=== PATIENT | female | born 1965 | race Caucasian/White ===

== ENCOUNTER 2019-02-12 07:02 | Inpatient (IN) ==
--- NOTE | 2019-02-12 11:00 | Internal Med History&Physical ---
Date of Encounter: 02/12/19 Time of Encounter: 10:35 Internal Medicine - H&P: HPI Chief complaint: Chest pain, transferred from [place] Admitted From: Intrahospital Transfer Plans for Post Hospital Care: Home History of present illness: Ms. Weiner is a 53 year old female with past medical history of diabetes, hypertension, peripheral artery disease with vascular surgeon in both her lower extremity who currently smokes was transferred from [facility] for further management for chest pain. She has on and off chest pain for last 2 weeks mostly at rest. She was evaluated a week ago at [facility] and was discharged to follow up outpatient for a stress test which she has not had yet. She denied any lightheadedness, palpitation, dizziness, nausea or vomiting. She has mild sweating but thought she was having hot flashes. She is on Effient because of some reaction to Plavix in the past prescribed by vascular surgery. However over the last month she has not been taking it. Her pain was 7/10 in intensity radiating to left shoulder and neck. Pain was slightly worse when lying down. Pain lasted the whole night yesterday which made her go to the ER. Patient was evaluated at [facility] and was found to have troponin of 0.22 without any significant EKG changes. Was given dose of aspirin 324 and started on heparin drip. Patient was transferred here for further management. Patient was seen at bedside. Currently without any chest pain nausea vomiting sweating or lightheadedness or dizziness. Wants to eat. Denies any other complaints. Reported that about 3 weeks ago she was treated for bronchitis and still has some cough associated with it however she also usually has some cough. Denies any fever or chills. Denies any diarrhea. Patient reported significant family history of cardiac disease with sister having heart attack in her 50s. Patient's EKG from [place] was reviewed and showed slight ST depression lateral leads. Laboratory data otherwise significant only for mildly elevated platelets which appears to be chronic and elevated blood glucose. Chest x-ray was without any acute findings. Patient says she is compliant with her medication but she continues to smoke. Patient on heparin drip. She reported penicillin allergy where he had projectile vomiting and was very sick when she was in her 20s. Did not remember exact allergy to Plavix. Past Med Surg Social Fam HX - Past Medical History Medical history: diabetes, hypertension, peripheral artery disease, venous stasis Psychiatric history: anxiety, panic disorder - Past Surgical History Surgical History: appendectomy, LE stent (s) Additional surgical history: appendectomy, ANGIOPLASTY WITH STENT LEFT 2011,RIGHT ANGIOPLASTY 2013, 2016, leasions removed from uterus - Social History Smoking Status: Current every day smoker Smokeless Tobacco Status: No Alcohol use: none Drug use: none - Additional Family History Additional family history: Sister had heart attack in her 50s, sister's daughter had heart attack in her 30s Internal Medicine - H&P: Meds Acetaminophen [Tylenol] 1,000 mg PO Q6HR PRN #90 tablet 01/14/17 [Rx] Albuterol Sulfate [Proventil Inhaler] 2 puff IH Q4HR PRN 01/14/17 [History] Amlodipine Besylate 10 mg PO DAILY 01/14/17 [History] Aspirin [Lo-Dose Aspirin EC] 81 mg PO DAILY 01/14/17 [History] Gabapentin [Neurontin] 600 mg PO TID 01/14/17 [History] Insulin ASPART [NovoLOG] 30 unit SQ BID 01/14/17 [History] Losartan Potassium [Cozaar] 50 mg PO DAILY 01/14/17 [History] Metoprolol [Lopressor] 50 mg PO DAILY 01/14/17 [History] Montelukast Sodium [Singulair] 10 mg PO DAILY 01/14/17 [History] Prasugrel [Effient] 10 mg PO DAILY 01/14/17 [History] metFORMIN [Glucophage] 1,000 mg PO BIDWM 01/14/17 [History] Loratadine/Pseudophed (12 HR) [Claritin D (12HR)] 1 each PO BID #20 tab.er.12h 01/27/17 [Rx] Albuterol Sulfate [Proventil Inhaler] 2 puff IH Q4H PRN 03/04/17 [History] Ciprofloxacin [Cipro] 500 mg PO BID #14 tablet 06/07/17 [Rx] Phenazopyridine HCl [Pyridium] 200 mg PO TIDAC #6 tab 06/07/17 [Rx] Allergy/AdvReac Type Severity Reaction Status Date / Time Penicillins [PCN] Allergy Intermediate Vomiting Verified 06/07/17 10:24 clopidogrel [From Plavix] AdvReac See Verified 06/07/17 10:24 Comments lisinopril AdvReac Cough Verified 06/07/17 10:24 quinapril [From Accupril] AdvReac Cough Verified 06/07/17 10:24 All Systems PM: A 10-system review of systems was performed and is negative for pertinent findings except as documented above in the HPI. - Constitutional Exam: Constitutional: Vitals as noted. Conversant. No Apparent Distress. Well groomed. obese Eyes : Sclera white, conjunctiva clear, no lid lag, PEARLA. ENT : Grossly normal hearing. Moist mucus membranes. No JVD, no cervical lymphadenopathy. no thyromegaly or mass. Respiratory : Clear to auscultation bilaterally. No accessory muscle use, rales, rhonchi or wheezes Cardiovascular : RRR, +S1, +S2. no murmur, gallop, rubs. No chest wall tenderness GI/Abdominal : Soft, Non-tender, Non-distended, normal bowel sounds, no peritoneal signs. no orgenomegaly or mass appreciated. no hernia. Musculoskeletal: no deformity noted. no edema , warm extremities, pulses palpable and symmetrical in UE/LE. no calf tenderness. Neurological: AO X3, CN II-XII grossly intact, grossly normal motor and sensory exam. Skin: No skin rash, lesions or ulcers noted. Pych: anxious. AOx3. Internal Med - H&P Results - EKG Data -: EKG Interpreted by Myself EKG shows normal: sinus rhythm (mild ST depression in lateral leads) - Assessment and Plan (1) NSTEMI (non-ST elevated myocardial infarction) Current Visit: No Status: Acute Assessment and plan: Patient currently without chest pain. EKG with slight ST depression in lateral leads. 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 We will trend troponin. continue patient on heparin drip for now. Cardiology consulted we will see the patient. Will continue patient's aspirin and metoprolol metoprolol. Appears patient not on any statin. We will start high intensity statin. We will confirm her home medications. We will obtain echocardiogram. (2) Diabetes Current Visit: Yes Status: Acute Assessment and plan: We will obtain A1c Keep patient on diabetic diet and Accu-Cheks with sliding scale for now. I will hold home metformin. Qualifiers: Diabetes mellitus type: type 2 Diabetes mellitus mcc insulin use: with mcc use Diabetes mellitus complication status: with circulatory complication Diabetes mellitus complication detail: with peripheral angiopathy without gangrene Qualified Code(s): E11.51 - Type 2 diabetes mellitus with diabetic peripheral angiopathy without gangrene; Z79.4 - snf (current) use of insulin (3) HTN (hypertension) Current Visit: Yes Status: Acute Assessment and plan: Blood pressure slightly on the higher and in 150s/80s Resume home losartan. Unclear dose of amlodipine. We will resume once confirmed. Qualifiers: Hypertension type: essential hypertension Qualified Code(s): I10 - Essential (primary) hypertension (4) Peripheral arterial disease Current Visit: Yes Status: Acute Assessment and plan: Known history of peripheral artery disease with surgeries and bilateral lower extremity. Patient continues to smoke. She was prescribed Effient by likely due to her PAD with her Plavix allergy and chronic thrombocytosis. We will continue after cardiology evaluation. She has not been taking it for the last month. (5) Anxiety Current Visit: Yes Status: Acute Assessment and plan: She does not take any medication for anxiety however currently feels somewhat anxious. We will monitor for now and consider as needed Ativan. (6) Tobacco abuse Current Visit: Yes Status: Acute Assessment and plan: Patient continues to about half to 1 pack a day. Discussed the risk of continuing smoking along with her other risk factors We will consider nicotine patch if patient develops craving. (7) Thrombocytosis Current Visit: Yes Status: Acute Assessment and plan: Appears to be chronic in nature. Minimally elevated above upper limit No significant family history of blood disorder Will need outpatient hematology follow-up. - Time Spent With Patient Total time spent is greater than 50% in coordination of care (as documented) at patient's floor/unit and/or counseling patient:
[2019-02-12] MEDS ORDERED: *HR* Heparin 5,000 UNIT/ML VIAL IVP PRN (12:22)
[2019-02-12] MEDS: Heparin 25,000 UNIT/250 ML D5W 25,000 UNIT/250 ML IV.SOLN IVC SCH (13:15)
[2019-02-12] MEDS ORDERED: D5% in Water 1,000 ML IVC PRN (14:14)
[2019-02-12] MEDS ORDERED: *HR* Dextrose 50 % in Water (Syg) 50 ML SYRINGE IVP PRN (14:14)
[2019-02-12] MEDS ORDERED: Dextrose Gel 15 GM/37.5 ML TUBE PO PRN ×2 (14:14)
[2019-02-12] MEDS: *HR* LORazepam 0.5 MG TABLET PO PRN ×2 (14:28→21:00)
[2019-02-12] MEDS: Insulin LISPRO 300 UNITS/3 ML VIAL SQ SCH ×2 (16:38→21:07)
[2019-02-12] MEDS: *HR* Heparin 5,000 UNIT/ML VIAL IVP PRN (21:00)
[2019-02-13 03:37] LABS: Basophils # 0.1 K/mcL (0.0-0.2); Eosinophils # 0.5 K/mcL (0.0-0.6); Eosinophils % 6.1 %; Hematocrit 39.2 % (35.3-44.9); Hemoglobin 12.5 g/dL (11.5-15.4); Immature Granulocytes % 0.2 % (0-4); Lymphocytes # 2.9 K/mcL (0.6-4.6); Lymphocytes % 34.3 %; Mean Corpuscular HGB Conc 31.9 g/dL (31.6-35.5); Mean Corpuscular Hemoglobin 29.8 pg (28.0-33.3); Mean Corpuscular Volume 93.3 fL (83.0-100.0); Mean Platelet Volume 9.7 fL (9.4-12.4); Monocytes # 0.6 K/mcL (0.0-1.3); Monocytes % 7.2 %; Neutrophils # 4.3 K/mcL (1.6-8.9); Platelet Count 395 K/mcL (140-400); Segmented Neutrophils % 51.2 %; White Blood Count 8.3 K/mcL (4.3-11.1)
[2019-02-13] MEDS: *HR* Heparin 5,000 UNIT/ML VIAL IVP PRN ×2 (04:07→11:44)
[2019-02-13] MEDS: Heparin 25,000 UNIT/250 ML D5W 25,000 UNIT/250 ML IV.SOLN IVC SCH ×2 (06:18→20:13)
[2019-02-13] MEDS: Insulin LISPRO 300 UNITS/3 ML VIAL SQ SCH ×7 (07:32→22:10)
[2019-02-13] MEDS: Aspirin Enteric Coated 81 MG Tablet PO SCH (07:36)
--- NOTE | 2019-02-13 09:39 | Cardiology Consult Note ---
Date of Encounter: 02/13/19 Time of Encounter: 09:25 Assessment and Plan (1) NSTEMI (non-ST elevated myocardial infarction) Current Visit: Yes Status: Acute Pt's symptoms consistent with unstable angina. EKG with no acute changes. Troponins elevated consistent with nonSTEMI. Will proceed with cardiac catheterization tomorrow AM to evaluate for obstructive CAD. Will likely need to use Brilinta if needs stent due to possible clopidogrel allergy. Emphasized strongly the need for compliance with DAPT if receives stent. Pt verbalizes understanding. Continue heparin gtt, beta blockade, add statin. (2) HTN (hypertension) Current Visit: No Status: Chronic Controlled. Continue current meds. Qualifiers: Hypertension type: essential hypertension Qualified Code(s): I10 - Essential (primary) hypertension (3) Peripheral arterial disease Current Visit: No Status: Chronic Will need outpatient f/u with PVS. (4) Tobacco abuse Current Visit: Yes Status: Chronic Smoking cessation. Discussion w patient/family: The assessment and plan as outlined above was discussed with the patient and/or family members who expressed understanding and agreement. All questions were answered. Thank you for involving us in the care of your patient. Please call with any questions. History of Present Illness Consult date: 02/13/19 Requesting physician: Perez De Santiago Consult reason: CP Chief complaint: CP History of present illness: Ms. Weiner is a 53 year old female with PVD, tobacco use, HTN, DM, hyperlipidemia presents to [facility] as transfer from [facility] for evaluation of CP. For past 2 weeks, pt has had intermittent CP that radiates to L shoulder/neck. Associated with SOB. Occurs at rest and with exertion. Notices most in evening when lying down. Symptoms have lasted for several hours and then eventually resolve. Was seen at urgent care a week ago for similar symptoms. Told to f/u with PCP who ordered stress test. Stress test has not been completed. Thursday evening, had onset of CP that lasted all night and into Sat AM. States CP was more severe and lasted longer than prior episodes therefore presented to [place] ED for further evaluation and tx. On arrival to [place], troponin was 0.22. EKG demonstrated NSR with possible prior anteroseptal WI. Pt started on heparin gtt and transferred here for further evaluation/tx. Pt denies past cardiac history. Does have known history of PVD and has had percutaneous revascularization of b/l LE by Dr. Tatum in past. Has had R SFA FACULTY I ON CALL MEDICAL ASSISTANT/stenting, known L SFA occlusion. Per pt, was told needed surgical revascularization of LLE but did not f/u. States can walk around [employer] without difficulty. Cannot walk up incline without claudication. Unsure how far can walk before having to stop due to claudication but thinks about 50 yards. Pt also has unspecified allergy to Plavix- "I can't take that." Had been on Effient but hasn't taken for past month since thinks daughter threw out her medication bottles. Currently pt is CP free, sitting up in bed. Serial troponins 0.22, 0.73, 0.78, 0.59. Past Med Surg Social Fam HX - Past Medical History Medical history: diabetes, hyperlipidemia, hypertension, peripheral artery disease, venous stasis Additional medical history: Hardening of the arteries Psychiatric history: anxiety, panic disorder - Past Surgical History Surgical History: appendectomy, LE stent (s) Additional surgical history: appendectomy, ANGIOPLASTY WITH STENT LEFT 2011,RIGHT ANGIOPLASTY 2013, 2016, leasions removed from uterus - Social History Smoking Status: Current every day smoker Packs per day: 1/4 a day Smokeless Tobacco Status: No Alcohol use: none Drug use: none - Family History Sister Hx Family Cardiac Disorders: Yes Hx Family Cancer: Yes Mother Hx Family Cardiac Disorders: Yes Medications and Allergies Albuterol Sulfate [Proventil Inhaler] 2 puff IH Q4HR PRN 01/14/17 [History] Amlodipine Besylate 10 mg PO DAILY 01/14/17 [History] Aspirin [Lo-Dose Aspirin EC] 81 mg PO DAILY 01/14/17 [History] Gabapentin [Neurontin] 600 mg PO TID 01/14/17 [History] Insulin ASPART [NovoLOG] 30 unit SQ TID 01/14/17 [History] Losartan Potassium [Cozaar] 50 mg PO DAILY 01/14/17 [History] Metoprolol [Lopressor] 50 mg PO BID 01/14/17 [History] Prasugrel [Effient] 10 mg PO DAILY 01/14/17 [History] Albuterol Neb [AccuNeb] 1.25 mg IH Q4-6H PRN 02/12/19 [History] Insulin LISPRO [Humalog Kwikpen U-100] 30 units SQ TID 02/12/19 [History] Metformin HCl 1,000 mg PO BID 02/12/19 [History] Allergy/AdvReac Type Severity Reaction Status Date / Time Penicillins [PCN] AdvReac Intermediate Vomiting Verified 02/12/19 16:06 clopidogrel [From Plavix] AdvReac See Verified 02/12/19 16:06 Comments lisinopril AdvReac Cough Verified 02/12/19 16:06 quinapril [From Accupril] AdvReac Cough Verified 02/12/19 16:06 All Systems Review: The remainder of the systems were reviewed and are negative - Cardiovascular Cardiovascular: as per HPI Physical Examination Vital Signs, Last 4 Hours Temp Pulse Resp BP Pulse Ox 02/13/19 07:04 97.9 F 90 16 133/78 90 General: Conversant, No Apparent Distress HEENT: Atraumatic, Normocephaly, Mucus Membranes Moist Neck: No JVD, Normal carotid pulses Cardiac: Reg Rate and Rhythm, Normal S1 and S2, No Murmur Lungs: Normal Breath Sounds, No Wheeze, Rales, Rhonchi Neuro: Alert and responsive, No focal deficits noted Abdomen: Soft, Non-Tender Skin: No rashes noted on visualized skin Musculoskeletal: No Chest Wall Tenderness Extremities: No Clubbing, No Cyanosis, No Edema Results 02/13/19 03:20 Lab Results 02/12/19 02/12/19 02/12/19 11:19 16:48 22:43 WBC Hgb Hct Plt Count Troponin I 0.73 H* 0.78 H* 0.59 H* 02/13/19 03:20 WBC 8.3 Hgb 12.5 Hct 39.2 Plt Count 395 Troponin I - EKG Interpretation EKG results cardiology: personally reviewed (EKG- NSR, prior anterosepal WI) Consult Discharge Plan - Plan Referrals: Neema Oropeza, FEI [Primary Care Provider] -
[2019-02-13] MEDS: Gabapentin 300 MG CAPSULE PO SCH ×3 (11:41→22:08)
[2019-02-13] MEDS: amLODIPine 5 MG TABLET PO SCH (11:44)
[2019-02-13] MEDS: Insulin DETEMIR 100 UNIT/ML X5UNITS SQ SCH ×2 (11:45→22:09)
[2019-02-13] MEDS: *HR* LORazepam 0.5 MG TABLET PO PRN ×2 (11:54→22:06)
--- NOTE | 2019-02-13 12:10 | Internal Med Progress Note ---
Hospitalist Progress Note - Encounter Date of Encounter: 02/13/19 Time of Encounter: 09:45 - Subjective Interval History: Patient was seen at bedside. Denied any chest pain, shortness of breath right now. Denies fever, chills, rigors. Denies blood in stools, hematuria. No other overnight events. - Exam Vitals: Temp Pulse Resp BP Pulse Ox 98.5 F 80 16 148/87 95 02/13/19 11:34 02/13/19 11:34 02/13/19 11:34 02/13/19 11:34 02/13/19 11:34 Exam: General: Alert and oriented, no physical distress, able to follow commands. HEENT: No thyromegaly, no lymphadenopathy, no discharge. Eyes: No discharge. Normal conjuctiva, no icterus Respiratory: Normal vesicular breathing, no added sounds, breathing equal in both sides. CVS: Normal heart sounds, no murmurs, regular rhthm, no edema Extremities: No peripheral edema, peripheral pulses intact. Lymph nodes: No lymphadenopathy Gastrointestinal: Soft, nontender abdomen, normal abdominal sounds. No distention noted. Genitourinary: No paravertebral tenderness. Skin: No rash, ulcers or wound. Neurological: Alert and oriented. No focal deficits. Cranial nerves II-XII intact. - Assessment and Plan (1) NSTEMI (non-ST elevated myocardial infarction) Current Visit: Yes Status: Acute Assessment and Plan: Likely unstable angina. Currently chest pain-free. EKG showed ST segment depression in the lateral leads. Troponins peaked at 0.78. Echocardiogram with normal ejection fraction without any wall motion abnormalities. Cardiology on board. Plan for cardiac catheterization tomorrow. Continuous aspirin, metoprolol. Continue heparin drip. Continue statins. (2) Diabetes Current Visit: Yes Status: Acute Assessment and Plan: Blood glucose levels slightly elevated. Continued insulin detemir 10 units twice a day, insulin lispro 5 units 3 times a day with meals. Continue low-dose sliding scale. (3) HTN (hypertension) Current Visit: No Status: Chronic Assessment and Plan: Blood pressure within reasonable range. Continue home medications. (4) Peripheral arterial disease Current Visit: No Status: Chronic Assessment and Plan: Known history of peripheral artery disease with surgeries and bilateral lower extremity. Patient continues to smoke. She was prescribed Effient by Dr.Manazer likely due to her PAD with her Plavix allergy and chronic thrombocytosis. She has not been taking it for the last 1 month. Further plan after the heart cath (5) Anxiety Current Visit: Yes Status: Acute Assessment and Plan: She does not take any medication for anxiety however currently feels somewhat anxious. We will monitor for now and consider as needed Ativan. (6) Tobacco abuse Current Visit: Yes Status: Chronic Assessment and Plan: Patient continues to about half to 1 pack a day. Discussed the risk of continuing smoking along with her other risk factors (7) Thrombocytosis Current Visit: Yes Status: Acute Assessment and Plan: Chronic No significant family history of blood disorder Will need outpatient hematology follow-up. - Time Spent with Patient Total time spent is greater than 50% in coordination of care (as documented) at patient's floor/unit and/or counseling patient: Internal Medicine: Result - Labs CBC & Chem 7: 02/13/19 03:20 Labs: Short CBC 02/13/19 Range/Units 03:20 WBC 8.3 (4.3-11.1) K/mcL Hgb 12.5 (11.5-15.4) g/dL Hct 39.2 (35.3-44.9) % Plt Count 395 (140-400) K/mcL Neutrophils # 4.3 (1.6-8.9) K/mcL Cardiac Enzymes 02/12/19 02/12/19 Range/Units 16:48 22:43 Troponin I 0.78 H* 0.59 H* (< 0.04) ng/mL - Impressions Impressions Echocardiogram 02/12/19 14:45 Impressions: Technically sub-optimal due to poor echocardiographic windows. LVEF 55-60%. Not all LV segments were well visualized, but overall LVEF is normal. Normal LV chamber size. Moderate concentric left ventricular hypertrophy. Mild left ventricular diastolic dysfunction. Normal right ventricular structure and function. No significant valvular dysfunction. Unable to estimate RVSP due to lack of TR jet. Findings: Study Quality * Technically sub-optimal due to poor echocardiographic windows. ECG Findings * Normal sinus rhythm. Left Ventricle * LVEF 55-60%. Not all LV segments were well visualized, but overall LVEF is normal. * Normal LV chamber size. * Moderate concentric left ventricular hypertrophy. * Mild left ventricular diastolic dysfunction. Right Ventricle * Normal right ventricular structure and function. Left Atrium * Normal left atrial size. Right Atrium * Normal right atrial size. Interatrial Septum * Interatrial septum not well evaluated. Aortic Valve * Aortic valve not well visualized. * Grossly, mildly calcified aortic valve leaflets. * No aortic stenosis. * No aortic regurgitation. Mitral Valve * Mildly thickened mitral valve leaflets. * No mitral regurgitation. * No mitral stenosis. Tricuspid Valve * Normal tricuspid valve structure and function. * No tricuspid regurgitation. * Unable to estimate RVSP due to lack of TR jet. Pulmonic Valve * Pulmonic valve is not well visualized. * No pulmonic regurgitation. Aorta * Normally sized aortic root. Pericardium * There is a trivial pericardial effusion present. IVC * Normal IVC dimensions and inspiratory collapse. Pulmonary Artery * Normal visualized portions of the main pulmonary artery. 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
[2019-02-14] MEDS: *HR* Heparin 5,000 UNIT/ML VIAL IVP PRN ×3 (00:54→21:48)
[2019-02-14 06:53] LABS: Hematocrit 41.1 % (35.3-44.9); Hemoglobin 13.3 g/dL (11.5-15.4); Immature Granulocytes % 0.3 % (0-4); Lymphocytes % 38.3 %; Mean Corpuscular HGB Conc 32.4 g/dL (31.6-35.5); Mean Corpuscular Hemoglobin 30.2 pg (28.0-33.3); Mean Corpuscular Volume 93.4 fL (83.0-100.0); Mean Platelet Volume 9.8 fL (9.4-12.4); Platelet Count 385 K/mcL (140-400); Segmented Neutrophils % 46.4 %; White Blood Count 7.7 K/mcL (4.3-11.1)
[2019-02-14 06:54] LABS: Basophils # 0.1 K/mcL (0.0-0.2); Basophils % 0.9 %; Eosinophils # 0.5 K/mcL (0.0-0.6); Eosinophils % 5.8 %; Monocytes # 0.6 K/mcL (0.0-1.3); Monocytes % 8.3 %; Neutrophils # 3.6 K/mcL (1.6-8.9)
[2019-02-14 07:09] LABS: BUN/Creatinine Ratio 20 (6-26); Blood Urea Nitrogen 16 mg/dL (6-20); Calcium 9.5 mg/dL (8.6-10.3); Carbon Dioxide 25 mEq/L (23-29); Chloride 101 mEq/L (98-107); Chol/HDL Ratio 6.6 (0-4.9); Cholesterol 185 mg/dL (< 200); Glucose 264 mg/dL (70-105); HDL Cholesterol 28 mg/dL (40-59); Osmolality,Calculated 290 (280-300); Potassium 4.2 mEq/L (3.5-5.1); Sodium 135 mEq/L (136-145); Triglycerides 549 mg/dL (< 150); eGFR For African Americans > 60 (> 60); eGFR For Non-African Americans > 60 (> 60)
[2019-02-14 07:22] LABS: LDL Cholesterol,Direct 84 mg/dL (75-193)
[2019-02-14] MEDS: Insulin LISPRO 300 UNITS/3 ML VIAL SQ SCH ×7 (07:32→21:23)
[2019-02-14] MEDS: Aspirin Enteric Coated 81 MG Tablet PO SCH (08:30)
[2019-02-14] MEDS: Gabapentin 300 MG CAPSULE PO SCH ×3 (08:31→21:49)
[2019-02-14] MEDS: amLODIPine 5 MG TABLET PO SCH (08:31)
[2019-02-14] MEDS: *HR* LORazepam 0.5 MG TABLET PO PRN ×3 (08:32→21:55)
[2019-02-14] MEDS: Insulin DETEMIR 100 UNIT/ML X5UNITS SQ SCH ×2 (08:32→21:24)
[2019-02-14] MEDS: Heparin 25,000 UNIT/250 ML D5W 25,000 UNIT/250 ML IV.SOLN IVC SCH (12:44)
[2019-02-14] MEDS ORDERED: Verapamil 5 MG/2 ML VIAL ONE (13:13)
[2019-02-14] MEDS ORDERED: Heparin 1,000 UNITS/500 mL 500 ML ONE (13:14)
[2019-02-14] MEDS ORDERED: *HR* Heparin 10,000 UNIT/10 ML VIAL ONE (13:14)
[2019-02-14] MEDS ORDERED: Nitroglycerin 1,000 MCG/10 ML VIAL IV ONE (13:14)
[2019-02-14] MEDS ORDERED: Iopamidol 125 ML INFUS..BTL ONE (13:14)
[2019-02-14] MEDS ORDERED: 0.9 % Sodium Chloride 1,000 ML ONE (13:14)
[2019-02-14] MEDS ORDERED: *HR* FentaNYL (PF) 100 MCG/2 ML VIAL ONE (14:28)
[2019-02-14] MEDS ORDERED: *HR* Midazolam HCl 2 MG/2 ML VIAL ONE (14:28)
--- NOTE | 2019-02-14 14:28 | Pre-Sedation Evaluation ---
Pre-sedation evaluation - Pre-sedation checklist Date of procedure: 02/14/19 Procedure: Heart cath Recent Vitals: Last Vital Signs Temp 97.8 F 02/14/19 11:04 Pulse 73 02/14/19 11:04 Resp 17 02/14/19 11:04 BP 121/81 02/14/19 11:04 Pulse Ox 95 02/14/19 11:04 H&P (including ROS) documented in medical record: Yes Previous reaction to sedatives/anesthetics: No Dietary Status: NPO after Midnight Dentition: No loose teeth or bridges, full dentition ASA Classification *see protocol: CLASS II-Mild systemic disease Plan of Care: Pt appropriate candidate for procedure/moderate/conscious sedation, Risks/benefits of procedure/sedation discussed w/ patient/family Cardiac Registry (Cardio Only) - Functional Capacity Functional Capacity: >=4 METS with symptoms - Clincal Frailty Scale Clinical Frailty Scale: Managing Well
--- NOTE | 2019-02-14 14:56 | Event Note ---
Date of Encounter: 02/14/19 Time of Encounter: 15:00 - Cardiology Event Note multivessel CAD LAD 95% and 80-90% long segment pLCx 60-70% and OM 70% R PDA 80% EF 70% CT surgery consult for CABG
--- NOTE | 2019-02-14 15:08 | Invasive Diagnostic Lab Proc ---
Name: Madelin Weiner Date of Study: 02/14/2019 Date: 1965 Ht: 68.9in Medical Record#: [id number] Age: 53 Wt: 240.30lb Gender: Female BSA: 2.23 Order #: [id number] BMI: 35.59 Physicians Procedure Physician: Justo Forde MD, FACC Referring MD: Referring MD: Staff Name Position Time In Neymar Jay RN Monitor 02:29 PM France Lanza RN Audio Technician 02:29 PM Rangel, Merry RT (R) Scrub 02:30 PM Procedures Performed Procedure L HRT ARTERY/VENTRICLE ANGIO Pre-Procedure Checklist Informed consent is complete signed and on chart. H&P is on chart. ID band is on and ID verified with patient. Patient NPO for procedure The procedure was described for the patient and questions were answered. ECG is on chart. Plan of Care Patient will tolerate the procedure without complications. Adequate level of comfort will be maintained. Hemodynamics will remain stable Patient will recover from procedure without complications. Respiratory function will be maintained. Cardiac rhythm will remain stable. Patient temperature will be maintained. Patient and/or family have verbalized understanding of the procedure. Patient Education Chief Complaint/Reason for Test: Cardiac Cath Developmental Category: Adult (18-64 years) Developmentally Appropriate for Age: Yes Learning Barriers: None Education Needs: Procedure Education Method: Verbal Information Taught: Cardiac Cath Educational Evaluation: Able to repeat information Intravenous Access Time IV Size Location DC'd Fluid/Drip Rate Units RN Lt Antecubital Allergies Statol lisinopril Tramadol clopidogrel Penicillins quinapril Vital Signs Time BP (mmHg) HR (bpm) O2 Sat. RR (bpm) LOC 02:31 PM / % 5 = Fully awake and oriented or at pre-proc level 02:29 PM 120 / 100 79 97 % 19 02:34 PM 155 / 93 80 91 % 15 02:39 PM 160 / 100 78 97 % 19 02:44 PM 143 / 84 79 95 % 16 Procedural Medications Time Medication Dose Units Method Given By 02:30 PM Oxygen 2 L/min nasal cannula France Lanza RN 02:31 PM Versed 2 mg Intravenous France Lanza RN 02:31 PM Fentanyl 50 mcg Intravenous France Lanza RN 02:37 PM Lidocaine 2% 1 ml Subcutaneous Justo Forde MD, FACC 02:39 PM Heparin 4000 units Nitroglycerin 200 mcg Verapamil 2.5 mg Intraarterial Justo Forde MD, [facility] ASA Classification: CLASS II- Mild systemic disease (i.e. well-controlled diabetes, hypertension, asthma, cigarette smoking) Gino Score Preprocedure Postprocedure Activity 2- Moves 4 extremities sustained head lift Activity 2- Moves 4 extremities sustained head lift Circulation 2- SBP +/= 20 points of pre-anesthetic level Circulation 2- SBP +/= 20 points of pre-anesthetic level Consciousness 2- Awake and alert oriented x 3 Consciousness 2- Awake and alert oriented x 3 O2 Saturation 2- Able to maintain O2 satruation of 92% on room air O2 Saturation 2- Able to maintain O2 satruation of 92% on room air Respiratory 2- Able to deep breathe and cough well Respiratory 2- Able to deep breathe and cough well Total Score 10 Total Score 10 Contrast Agent: Isovue Diagnostic Contrast: 47 ml Total Contrast: 47 ml Fluoro Dose: 17 mGy Procedure Log Time Note Enter By 02:28 PM Vitals capture started with the following parameters, Patient=Adult, Interval=5 min, Initial Ydizvqfa=234 mmHg, Deflation Rate=3 mmHg, Cuff placed on Right Arm 02: PM CathStat 02:29 PM Pt arrived to rn lab 2 at 14:29 cedwards 02:29 PM Jay Blackmon RN Position: Monitor Time in: 14:29 cedwards 02:29 PM HR=79 bpm, FUHA=896/100 mmhg, SpO2=97.0 %, Resp=19 B/min, EtCO2=32 mmHg, Comment=NSR 02:30 PM France Lanza RN Position: Audio Technician Time in: :29 ced 02:30 PM Merry Multani RT (R) Position: Scrub Time in: 14:30 cedwards 02:30 PM Patient charges- Angio tray pack, Navilyst 3mm J, Pulse Oximetry and ACIST tubing and transducer cedwards 02:30 PM IV Supplies used: J loop Angio Cath. ced 02:30 PM Physician arrived 14:30 cedwards 02:30 PM Suhail and sasha completed ced 02:30 PM Sign in performed according to hospital policy. Informed consent was obtained. cedwards 02:30 PM ASA Class CLASS II- Mild systemic disease (i.e. well-controlled diabetes, hypertension, asthma, cigarette smoking) cedwards 02:30 PM Hair removed from procedure site in procedure lab using clippers. Right wrist and Right groin prepped with Chloraprep by France Lanza RN, then patient was draped. Skin intact. ced 02:30 PM Procedure start 14:30 : PM Time: 14:30 Oxygen on at 2 L/min per nasal cannula by France Lanza RN PM Time: 14:31 Patient comfortable and pain free: Yes PM Time: 14:31LOC: 5 = Fully awake and oriented or at pre-proc level ced PM Time: 14:31 Versed 2 mg Intravenous Given by France Lanza RN PM Time: 14:31 Fentanyl 50 mcg Intravenous Given by France Lanza RN 02:34 PM HR=80 bpm, QYRC=597/93 mmhg, SpO2=91.0 %, Resp=15 B/min, EtCO2=36 mmHg, Comment=NSR 02:37 PM Time out was performed according to hospital policy. Conscious sedation and anesthesia was achieved (see medication log with in this report above) ced 02:38 PM Time: 14:37 1 ml Lidocaine 2% to right radial Subcutaneous Given by Justo Forde MD, FAC ced 02:39 PM Access obtained by percutaneous puncture. 5/6Fr 10cm Terumo Glidesheath sheath placed in right Radial artery. [id number] 02:39 PM HR=78 bpm, XSMI=317/100 mmhg, SpO2=97.0 %, Resp=19 B/min, EtCO2=41 mmHg, Comment=NSR 02:39 PM Time: 14:39 Patient given 4,000 units Heparin, 200 mcg Nitroglycerin, and 2.5 mg Verapamil Intraarterial by Justo Forde MD, FAC. This is given to reduce risk of vessel spasm and thrombosis. ced 02:40 PM 0.035 145cm Navilyst 3mmJ wire [id number] ced 02:40 PM 5Fr TIG catheter inserted over the wire [facility] 02:41 PM Recorded Pressure: Ao, HR=84, Condition=Condition 1 (Aorta) Ao 140/98/116 02:42 PM RCA angiography performed in multiple views. ced 02:42 PM LCA angiography performed in multiple views. cedwards 02:44 PM HR=79 bpm, TCSJ=395/84 mmhg, SpO2=95.0 %, Resp=16 B/min 02:45 PM Catheter removed cedwards 02:45 PM Recorded Pressure: LV, HR=80, Condition=Condition 1 (Left Ventricle) LV 143/44/138 02:45 PM Recorded Pressure: LV, Ao, HR=82, Condition=Condition 1 (Left Ventricle) LV 146/14/23, (Aorta) Ao 149/87/111 02:46 PM 5Fr Pigtail catheter inserted over the wire [facility] cedwards 02:46 PM Catheter crossed the aortic valve and was selectively placed in the left ventricle. Pressures recorded on pullback for left heart catheterization. cedwards 02:46 PM Bolus angiogram of left Ventricle complete: 10 ml/sec for a total of 20 mls cedwards 02:46 PM Catheter removed cedwards 02:47 PM Procedure completed at 14:47 02/14/2019 cedwards 02:47 PM Did you address ROSE MARY flow and Dominance? YesCoronary Dominance: right cedwards 02:48 PM Sign out completed: Radiation Dose 143.08 mGy, 17.2 Gy/cm2 Fluoro Time: 1.1 Isovue 370 - 200ml contrast 47 ml given by Justo Forde MD, [facility]. Complications: None. 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 Sedation minutes 16. Cardiac Rehab Consult needed: Yes. Confirmed administered medications: Yes cedwards 02:48 PM Isovue 370 - 200ml,1 Bottle(s) used. cedwards 02:49 PM 10 ml air in Vasc Band. cedwards 02:50 PM Estimated Blood Loss: minimal cedwards 02:50 PM Post ECG NSR cedwards 02:50 PM Post Blood Pressure 140/98 cedwards 02:51 PM Information taught Cardiac Cath and Vasc Band cedwards 02:51 PM Education needs Procedure, Plan of Care, and Disease Process cedwards 02:51 PM Learning barriers :None cedwards 02:51 PM Education Methods Verbal cedwards 02:51 PM Education evaluation Able to repeat information cedwards 02:51 PM Site status No bleeding/ No Hematoma - Rt Wrist as reported by Sites, Merry RT (R) at 14:51 cedwards 02:51 PM Plavix, Effient or Brilinta given No cedwards 02:51 PM Family placed in consult room. cedwards 02:[address] Stein paged for CABG consult. cedwards 02:53 PM Report given to Catalina ROJO Pt taken to 2A Room #12. 14:53 cedwards 02:54 PM Lesion found in Proximal RCA. Pre Stenosis: 40 Pre ROSE MARY Flow: cedwards 02:54 PM Lesion found in Right PDA. Pre Stenosis: 80 Pre ROSE MARY Flow: cedwards 02:54 PM Lesion found in Proximal LAD. Pre Stenosis: 30 Pre ROSE MARY Flow: cedwards 02:54 PM Lesion found in Mid LAD. Pre Stenosis: 95 Pre ROSE MARY Flow: cedwards 02:54 PM Lesion found in Mid LAD. Pre Stenosis: 90 Pre ROSE MARY Flow: cedwards 02:54 PM Lesion found in Proximal Circumflex. Pre Stenosis: 65 Pre ROSE MARY Flow: cedwards 02:55 PM Lesion found in 1st Marginal. Pre Stenosis: 65 Pre ROSE MARY Flow: cedwards 02:[address] Stein returned page notified of consult. cedwards 02:56 PM Patient out of room: 14:56 cedwards Complications Complication None Hemodynamics Pressures Site Systolic/A Wave Diastolic/V Wave Mean AO 140 98 116 LV 143 44 138 LV 146 14 23 AO 149 87 111 Post Procedure Information Blood Pressure: 140/98 mmHg Rhythm: NSR Post procedural instructions were given Closure Device Time Device Success/Fail 02/14/2019 2:53:00 PM Mechanical Compression Successful Site Checks Time Location Status Staff Sheath In? Note 02:51 PM Rt Wrist No bleeding/ No Hematoma Sites, Merry RT (R) Pulses Time Site Pre-Procedure Post-Procedure Note Bilateral DP & PT 1+ Bilateral radial 2+ Updated by Jay Blackmon RN on 02/14/2019 2:59:08 PM electronically signed on 02/14/2019 2:59:35 PM with status of Final
[2019-02-14] MEDS ORDERED: *HR* LORazepam 1 MG TABLET PO ONE (15:33)
--- NOTE | 2019-02-14 16:19 | Internal Med Progress Note ---
Hospitalist Progress Note - Encounter Date of Encounter: 02/14/19 Time of Encounter: 11:00 - Subjective Interval History: Patient was seen at bedside. No acute complaints today. Denies chest pain, shortness of breath. Denies nausea, vomiting, diarrhea. Denies blood in stools, hematuria. No other overnight events. - Exam Vitals: Temp Pulse Resp BP Pulse Ox 97.7 F 78 16 145/84 95 02/14/19 15:00 02/14/19 16:10 02/14/19 16:10 02/14/19 16:10 02/14/19 16:10 Exam: General: Alert and oriented, no physical distress, able to follow commands. Respiratory: Normal vesicular breathing, no added sounds, breathing equal in both sides. CVS: Normal heart sounds, no murmurs, regular rhthm, no edema Extremities: No peripheral edema, peripheral pulses intact. Gastrointestinal: Soft, nontender abdomen, normal abdominal sounds. No distention noted. Genitourinary: No paravertebral tenderness. Skin: No rash, ulcers or wound. Neurological: Alert and oriented. No focal deficits. Cranial nerves II-XII intact. - Assessment and Plan (1) NSTEMI (non-ST elevated myocardial infarction) Current Visit: Yes Status: Acute Assessment and Plan: Likely unstable angina. Currently chest pain-free. EKG showed ST segment depression in the lateral leads. Troponins peaked at 0.78. Echocardiogram with normal ejection fraction without any wall motion abnormalities. Cardiology on board. Cardiac cath showed multivessel disease with recommen dations for the CABG Continuous aspirin, metoprolol. Continue heparin drip. Continue statins. CT surgery on board, await recommendations. (2) Diabetes Current Visit: Yes Status: Acute Assessment and Plan: Blood glucose levels slightly elevated. increase insulin detemir 20 units twice a day, insulin lispro 8 units 3 times a day with meals. Continue low-dose sliding scale. (3) HTN (hypertension) Current Visit: No Status: Chronic Assessment and Plan: Blood pressure within reasonable range. Continue home medications. (4) Peripheral arterial disease Current Visit: No Status: Chronic Assessment and Plan: Known history of peripheral artery disease with surgeries and bilateral lower extremity. Patient continues to smoke. She was prescribed Effient by likely due to her PAD with her Plavix allergy and chronic thrombocytosis. She has not been taking it for the last 1 month. (5) Anxiety Current Visit: Yes Status: Acute Assessment and Plan: She does not take any medication for anxiety however currently feels somewhat anxious. As needed Ativan. (6) Tobacco abuse Current Visit: Yes Status: Chronic Assessment and Plan: Patient continues to about half to 1 pack a day. Discussed the risk of continuing smoking along with her other risk factors (7) Thrombocytosis Current Visit: Yes Status: Acute Assessment and Plan: Chronic Will need outpatient hematology follow-up. - Time Spent with Patient Total time spent is greater than 50% in coordination of care (as documented) at patient's floor/unit and/or counseling patient: Internal Medicine: Result - Labs CBC & Chem 7: 02/14/19 06:37 02/14/19 06:37 Labs: Short CBC 02/14/19 Range/Units 06:37 WBC 7.7 (4.3-11.1) K/mcL Hgb 13.3 (11.5-15.4) g/dL Hct 41.1 (35.3-44.9) % Plt Count 385 (140-400) K/mcL Neutrophils # 3.6 (1.6-8.9) K/mcL BMP 02/14/19 06:37 Sodium 135 L Potassium 4.2 Chloride 101 Carbon Dioxide 25 BUN 16 Creatinine 0.81 Glucose 264 H Calcium 9.5 Consult Discharge Plan - Plan Referrals: Neema Oropeza, [employer] [Primary Care Provider] - (2) Diabetes Qualifiers: Diabetes mellitus type: type 2 Diabetes mellitus superintendent container terminal insulin use: with superintendent container terminal use Diabetes mellitus complication status: with circulatory complication Diabetes mellitus complication detail: with peripheral angiopathy without gangrene Qualified Code(s): E11.51 - Type 2 diabetes mellitus with diabetic peripheral angiopathy without gangrene; Z79.4 - group home (current) use of insulin (3) HTN (hypertension) Qualifiers: Hypertension type: essential hypertension Qualified Code(s): I10 - Essential (primary) hypertension
--- NOTE | 2019-02-14 17:06 | Cardiothoracic Consult Note ---
Date of Encounter: 02/14/19 Time of Encounter: 17:02 Assessment and Plan (1) NSTEMI (non-ST elevated myocardial infarction) Current Visit: Yes Status: Acute The patient is a 53-year-old type II diabetic, hypertensive lady with hypercholesterolemia and PAD. She was transferred [facility] with the diagnosis of an acute NSTEMI. She underwent catheterization today was found to have severe 3 vessel CAD and an LVEF 55%. In particular, the patient has a 95% mid LAD lesion, a 90% mid to distal LAD lesion, a 60-70% proximal LCx lesion, 6070% proximal OM1 lesion, an 80% mid PDA lesion. She has been recommended for CABG. I concur with this recommendation. The STS risk calculator reveals an operative mortality risk 1.34%, renal failure risk 0.91%, permanent stroke risk 0.95%, sternal wound in fection risk 0.47%, and reoperation risk 1.39%. She understands the procedure, benefits, alternatives, and risks as outlined above, and gives her informed consent. We will proceed with CABG tomorrow afternoon. The assessment and plan as outlined above was discussed with the patient and/or family members who expressed understanding and agreement. All questions were answered. - History of Present Illness Consult date: 02/14/19 Requesting physician: Justo Forde Consult reason: CABG evaluation Chief complaint: NSTEMI History of present illness: Ms. Weiner is a 53 year old type I diabetic, hypertensive lady with hypercholesterolemia and PAD. She began experiencing intermittent substernal chest pain radiating to her left neck and left shoulder, as well as shortness of breath 2 weeks prior to admission. The pain typically would occur in the evening when she was resting and would last for several hours before resolving spontaneously. She had severe substernal chest pain on 02/11/2019 which lasted until the next morning. When the pain did not resolve, she was evaluated at [facility] and she was found to have elevated troponin I levels consistent with an acute NSTEMI. She was treated medically and transferred to [facility] for further cardiac care. The patient underwent a transthoracic echocardiogram which revealed an LVEF 55- 60% with normal left ventricular size, and function. No significant valvular dysfunction was noted. She underwent cardiac catheterization this morning and was found to have severe 3 vessel CAD and an LVEF 55%. In particular, the patient has a 95% mid LAD lesion (before D1), a 90% mid LAD lesion (after D1), a 60-70% proximal LCx lesion, a 60-70% proximal OM1 lesion, an 80% mid PDA lesion (small vessel). She has been recommended for CABG. Past Med Surg Social Fam HX - Past Medical History Medical history: coronary artery disease, diabetes, hyperlipidemia, hypertension, peripheral artery disease Additional medical history: Hardening of the arteries Psychiatric history: anxiety, panic disorder - Past Surgical History Surgical History: appendectomy, vascular surgery (Right SFA angioplasty), LE stent (s) (Right SFA stent) Additional surgical history: appendectomy, ANGIOPLASTY WITH STENT LEFT 2011,RIGHT ANGIOPLASTY 2013, 2016, leasions removed from uterus - Social History Smoking Status: Current every day smoker Packs per day: 1PPD x 40YRS Smokeless Tobacco Status: No Alcohol use: none Drug use: none Occupational status: unemployed Current living situation: Home - Independent Activity Level: Independent ambulation Recent Out of Country Travel Within the Last 8 Weeks: No Exposure or Possible Exposure to Illness During Travel: No - Family History Sister Hx Family Cardiac Disorders: Yes Hx Family Cancer: Yes Mother Hx Family Cardiac Disorders: Yes Medications and Allergies Albuterol Sulfate [Proventil Inhaler] 2 puff IH Q4HR PRN 01/14/17 [History] Amlodipine Besylate 10 mg PO DAILY 01/14/17 [History] Aspirin [Lo-Dose Aspirin EC] 81 mg PO DAILY 01/14/17 [History] Gabapentin [Neurontin] 600 mg PO TID 01/14/17 [History] Insulin ASPART [NovoLOG] 30 unit SQ TID 01/14/17 [History] Losartan Potassium [Cozaar] 50 mg PO DAILY 01/14/17 [History] Metoprolol [Lopressor] 50 mg PO BID 01/14/17 [History] Prasugrel [Effient] 10 mg PO DAILY 01/14/17 [History] Albuterol Neb [AccuNeb] 1.25 mg IH Q4-6H PRN 02/12/19 [History] Insulin LISPRO [Humalog Kwikpen U-100] 30 units SQ TID 02/12/19 [History] Metformin HCl 1,000 mg PO BID 02/12/19 [History] Allergy/AdvReac Type Severity Reaction Status Date / Time Penicillins [PCN] AdvReac Intermediate Vomiting Verified 02/12/19 16:06 clopidogrel [From Plavix] AdvReac See Verified 02/12/19 16:06 Comments lisinopril AdvReac Cough Verified 02/12/19 16:06 quinapril [From Accupril] AdvReac Cough Verified 02/12/19 16:06 All Systems Review: The remainder of the systems were reviewed and are negative Physical Examination Vital Signs, Last 4 Hours Temp Pulse Resp BP Pulse Ox 02/14/19 16:43 90 16 133/68 92 02/14/19 16:10 78 16 145/84 95 02/14/19 15:54 82 17 170/96 95 02/14/19 15:30 88 19 161/89 97 02/14/19 15:15 80 18 134/86 90 02/14/19 15:00 97.7 F 82 18 119/75 93 General: Conversant, No Apparent Distress HEENT: Atraumatic, Normocephaly, Trachea midline Neck: No JVD, Normal carotid pulses Cardiac: Reg Rate and Rhythm, Normal S1 and S2, No Murmur Lungs: Normal Breath Sounds, No Wheeze, Rales, Rhonchi Neuro: Alert and responsive, No focal deficits noted, Motor nerves intact, Sensory nerves intact Vascular: Normal capillary refill Abdomen: Soft, Non-tender Skin: No rashes noted on visualized skin Musculoskeletal: No Chest Wall Tenderness Extremities: No Clubbing, No Cyanosis, No Edema, Normal Pulses (Right lower extremity), Other (Absent pulses and left lower extremity below the femoral artery) Results 02/14/19 06:37 02/14/19 06:37 Lab Results, Last 24 hours 02/14/19 02/14/19 06:37 06:37 WBC 7.7 Hgb 13.3 Hct 41.1 Plt Count 385 Sodium 135 L Potassium 4.2 Chloride 101 Carbon Dioxide 25 BUN 16 Creatinine 0.81 Glucose 264 H Calcium 9.5 - Imaging Chest Xray: image reviewed (Normal cardiac size. No active pulmonary disease.) Consult Discharge Plan - Plan Referrals: Neema Oropeza, FEI [Primary Care Provider] -
[2019-02-14 19:43] LABS: Estimated Average Glucose 252 mg/dl
[2019-02-14] MEDS: Chlorhexidine Rinse 15 ML MOUTHWASH MM SCH (21:49)
[2019-02-15] MEDS ORDERED: 0.9 % Sodium Chloride 1,000 ML ONE (00:06)
[2019-02-15] MEDS ORDERED: Insulin LISPRO 300 UNITS/3 ML VIAL SQ ONE ×3 (00:55→03:16)
[2019-02-15] MEDS: Heparin 25,000 UNIT/250 ML D5W 25,000 UNIT/250 ML IV.SOLN IVC SCH (03:40)
[2019-02-15 04:44] LABS: Basophils # 0.1 K/mcL (0.0-0.2); Basophils % 0.9 %; Eosinophils # 0.5 K/mcL (0.0-0.6); Eosinophils % 5.9 %; Hematocrit 41.1 % (35.3-44.9); Hemoglobin 13.1 g/dL (11.5-15.4); Immature Granulocytes % 0.5 % (0-4); Lymphocytes # 3.3 K/mcL (0.6-4.6); Lymphocytes % 40.9 %; Mean Corpuscular HGB Conc 31.9 g/dL (31.6-35.5); Mean Corpuscular Hemoglobin 29.8 pg (28.0-33.3); Mean Corpuscular Volume 93.6 fL (83.0-100.0); Mean Platelet Volume 9.9 fL (9.4-12.4); Monocytes # 0.5 K/mcL (0.0-1.3); Monocytes % 6.8 %; Neutrophils # 3.6 K/mcL (1.6-8.9); Platelet Count 469 K/mcL (140-400); Red Blood Count 4.39 M/mcL (3.82-4.97)
[2019-02-15 05:01] LABS: BUN/Creatinine Ratio 23 (6-26); Blood Urea Nitrogen 19 mg/dL (6-20); Calcium 9.4 mg/dL (8.6-10.3); Carbon Dioxide 24 mEq/L (23-29); Chloride 98 mEq/L (98-107); Glucose 363 mg/dL (70-105); Osmolality,Calculated 297 (280-300); Potassium 4.4 mEq/L (3.5-5.1); Sodium 135 mEq/L (136-145); eGFR For African Americans > 60 (> 60); eGFR For Non-African Americans > 60 (> 60)
[2019-02-15] MEDS ORDERED: Dextrose 50 % in Water (Vial) 30 ML, Sodium Bicarbonate 20 MEQ, Lidocaine 1% 5 ML, Insu... TH ONE ×3 (06:00)
[2019-02-15] MEDS ORDERED: Heparin 15,000 UNIT in 0.9 % Sodium Chloride 500 ML IV ONE (06:00)
[2019-02-15] MEDS ORDERED: Dextrose 50 % in Water (Vial) 30 ML, Sodium Bicarbonate 20 MEQ, Potassium Chloride 15 M... TH ONE (06:00)
[2019-02-15] MEDS ORDERED: Insulin Human Regular 100 UNIT in 0.9 % Sodium Chloride 100 ML IV PRN (06:00)
[2019-02-15] MEDS ORDERED: Norepinephrine 4 MG in 0.9 % Sodium Chloride 250 ML IVC PRN (06:00)
[2019-02-15] MEDS ORDERED: Clindamycin 900 MG/50 ML 900 MG/50 ML IV.SOLN IVPB ONE (08:00)
--- NOTE | 2019-02-15 08:30 | Event Note ---
Date of Encounter: 02/15/19 Time of Encounter: 08:20 - Cardiology Event Note Patient presented as NSTEMI, underwent LHC on 02/14 and found to have multi vessel CAD. CT surgery consulted, CABG scheduled for later today. No further inpt recommendations, Cardiology will sign-off. Will coordinate outpatient follow-up. Discussed and reviewed with Dr. Benavides who agrees with plan.
--- NOTE | 2019-02-15 09:11 | Anesthesia Evaluation PreOp ---
Date of Encounter: 02/15/19 Time of Encounter: 13:58 - Past History Planned Operation: CABG Cardiac History: NV (acute NSTEMI), Angina, HTN, Hyperlipidemia, Other (PAD, CAD) Pulmonary History: Smoker, Pack/yr (40+) SOLUTION MANAGER History: Other (anxiety) Other Medical History: Diabetes Type I Anesthesia History: No Prior Anesthetic Complications, Past Anesthesia (right SFA angioplasty/stent) Alcohol Use: none Drug use: none Medications and Allergies Albuterol Sulfate [Proventil Inhaler] 2 puff IH Q4HR PRN 01/14/17 [History] Amlodipine Besylate 10 mg PO DAILY 01/14/17 [History] Aspirin [Lo-Dose Aspirin EC] 81 mg PO DAILY 01/14/17 [History] Gabapentin [Neurontin] 600 mg PO TID 01/14/17 [History] Insulin ASPART [NovoLOG] 30 unit SQ TID 01/14/17 [History] Losartan Potassium [Cozaar] 50 mg PO DAILY 01/14/17 [History] Metoprolol [Lopressor] 50 mg PO BID 01/14/17 [History] Prasugrel [Effient] 10 mg PO DAILY 01/14/17 [History] Albuterol Neb [AccuNeb] 1.25 mg IH Q4-6H PRN 02/12/19 [History] Insulin LISPRO [Humalog Kwikpen U-100] 30 units SQ TID 02/12/19 [History] Metformin HCl 1,000 mg PO BID 02/12/19 [History] Allergy/AdvReac Type Severity Reaction Status Date / Time Penicillins [PCN] AdvReac Intermediate Vomiting Verified 02/12/19 16:06 clopidogrel [From Plavix] AdvReac See Verified 02/12/19 16:06 Comments lisinopril AdvReac Cough Verified 02/12/19 16:06 quinapril [From Accupril] AdvReac Cough Verified 02/12/19 16:06 - Meds/Allergy Pre-op Review Medications Reviewed: Yes Allergies Reviewed: Yes Beta Blockers on Current Med List: Yes If Beta Blockers taken, Date/Time (Last Dose taken): 02-14 at 2149 Anesthesia Results - Labs 02/15/19 03:35 02/15/19 03:35 - Imaging EKG: report reviewed (Sinus rhythm Anteroseptal infarct, old) Additional studies: cath: Indications: ACS > 24 hrs Impressions: There is severe three vessel coronary artery disease. The left ventricle EF 70% Recommendations: Optimal medical therapy of patient's disease. Aggressive risk factor modification. Suggest patient have Elective coronary artery bypass surgery. LV Ventriculography Ejection Method: LV Gram Ejection Fraction: 70% Wall Motion: RABAGO Anterobasal Hyperkinesis Anterolateral Hyperkinesis Apical: Hyperkinesis Inferoapical Hyperkinesis Inferobasal Hyperkinesis Coronary Dominance: right Lesion Findings/Interventions * Left Main Coronary Artery The LMCA is angiographically free of disease. * Left Anterior Descending There is a 30% stenosis in the Proximal LAD. There is a 95% stenosis in the Mid LAD. There is a 80-90% stenosis in the Mid LAD, long lesion * Circumflex There is a 60-70% stenosis in the Ostial-Proximal Circumflex. There is a 60-70% stenosis in the 1st Marginal. * Right Coronary Artery There is a 40% stenosis in the Proximal RCA. There is a 80-90% stenosis in the Right PDA echo: Impressions: Technically sub-optimal due to poor echocardiographic windows. LVEF 55-60%. Not all LV segments were well visualized, but overall LVEF is normal. Normal LV chamber size. Moderate concentric left ventricular hypertrophy. Mild left ventricular diastolic dysfunction. Normal right ventricular structure and function. No significant valvular dysfunction. Unable to estimate RVSP due to lack of TR jet. Anesthesia Exam Selected Entries 02/15/19 06:39 Temperature 97.5 F L Pulse Rate 87 Respiratory Rate 17 Blood Pressure 127/72 O2 Sat by Pulse Oximetry 94 Oxygen Delivery Method Room Air Weight: 109kg NPO (# of Hours): 8 - HEENT Pupil (Motor): EOMI Mallampati: III Teeth: Missing, Poor dentition Oral Opening: Greater than 3 - SOLUTION MANAGER LOC: Oriented (anxious) SOLUTION MANAGER Motor: Normal RUE, Normal LUE, Normal RLE, Normal LLE, Normal Face SOLUTION MANAGER Sensory: Normal: RUE, LUE, RLE, LLE, Face - Cardiac Rhythm: Regular Murmur: None - Pulmonary Breath Sounds: bilateral Clear Respiratory Effort: Symmetrical Anesthesia Assess/Plan ASA Score: 4 Level of consciousness: Cooperative, Oriented Anesthetic Plan: General Monitoring Plan: Standard Monitors, A-Line, PAC, ASIA Recovery Plan: ICU (agrees to GA, lines, ASIA and blood)
[2019-02-15] MEDS: Insulin DETEMIR 100 UNIT/ML X5UNITS SQ SCH ×2 (09:23→19:37)
[2019-02-15] MEDS ORDERED: *HR* LORazepam 2 MG/ML VIAL IVP ONE (09:37)
[2019-02-15] MEDS: Insulin LISPRO 300 UNITS/3 ML VIAL SQ SCH ×7 (09:39→19:37)
[2019-02-15] MEDS: Chlorhexidine Rinse 15 ML MOUTHWASH MM SCH ×2 (09:41→21:16)
[2019-02-15] MEDS ORDERED: Mannitol 25% vial 12.5 GM/50 ML VIAL IVP ONE (09:43)
[2019-02-15] MEDS ORDERED: *HR* Magnesium Sulfate 2 GM/50 ML PIGGYBACK IVPB ONE (09:43)
[2019-02-15] MEDS ORDERED: *HR* Phenylephrine 10 MG/ML VIAL IVC ONE (09:43)
[2019-02-15] MEDS ORDERED: Lidocaine 2% Syringe 100 MG/5 ML IV ONE (09:43)
[2019-02-15] MEDS ORDERED: *HR* Heparin 10,000 UNIT/10 ML VIAL IV ONE (09:43)
[2019-02-15] MEDS ORDERED: Albumin Human 25% 25 GM/100 ML IV.SOLN IV ONE (09:43)
[2019-02-15] MEDS ORDERED: Tranexamic Acid 1,000 MG/10 ML VIAL IVPB ONE (09:43)
--- NOTE | 2019-02-15 11:26 | Internal Med Progress Note ---
Hospitalist Progress Note - Encounter Date of Encounter: 02/15/19 Time of Encounter: 10:15 - Subjective Interval History: Patient was seen at bedside. She is feeling much anxious. Plan for the surgery around noon. Denied any chest pain, shortness of breath. Blood glucose levels noted to be high. No other overnight events. - Exam Vitals: Temp Pulse Resp BP Pulse Ox 97.5 F L 87 17 127/72 94 02/15/19 06:39 02/15/19 06:39 02/15/19 06:39 02/15/19 06:39 02/15/19 06:39 Exam: General: Alert and oriented, no physical distress, able to follow commands. Respiratory: Normal vesicular breathing, no added sounds, breathing equal in both sides. CVS: Normal heart sounds, no murmurs, regular rhthm, no edema Extremities: No peripheral edema, peripheral pulses intact. Gastrointestinal: Soft, nontender abdomen, normal abdominal sounds. No distent ion noted. Genitourinary: No paravertebral tenderness. Skin: No rash, ulcers or wound. Neurological: Alert and oriented. No focal deficits. Cranial nerves II-XII intact. - Assessment and Plan (1) NSTEMI (non-ST elevated myocardial infarction) Current Visit: Yes Status: Acute Assessment and Plan: Currently chest pain-free. EKG showed ST segment depression in the lateral leads. Troponins peaked at 0.78. Echocardiogram with normal ejection fraction without any wall motion abn ormalities. Cardiology on board. Cardiac cath showed multivessel disease with recommendations for the CABG CABG today around noon. She will be transferred to ICU following the CABG. Hospitalist service will sign off. Further management as per CT surgery (2) Diabetes Current Visit: Yes Status: Acute Assessment and Plan: Blood glucose levels slightly elevated. WIll give 10 U considering hse is NPO Can be started on basal bolus following the sugery (3) HTN (hypertension) Current Visit: No Status: Chronic Assessment and Plan: Blood pressure within reasonable range. Continue home medications. (4) Peripheral arterial disease Current Visit: No Status: Chronic Assessment and Plan: Known history of peripheral artery disease with surgeries and bilateral lower extremity. Patient continues to smoke. She was prescribed Effient by likely due to her PAD with her Plavix allergy and chronic thrombocytosis. She has not been taking it for the last 1 month. (5) Anxiety Current Visit: Yes Status: Acute Assessment and Plan: Very anxious due to surgery Will give 1 dose of IV ativan (6) Tobacco abuse Current Visit: Yes Status: Chronic Assessment and Plan: Patient continues to about half to 1 pack a day. Discussed the risk of continuing smoking along with her other risk factors - Summary of Assessment and Plan Summary of Assessment and Plan: Hospitalist service will sign off. Further management as per CT surgery, Please consult if needed. - Time Spent with Patient Total time spent is greater than 50% in coordination of care (as documented) at patient's floor/unit and/or counseling patient: Internal Medicine: Result - Labs CBC & Chem 7: 02/15/19 03:35 02/15/19 03:35 Labs: Short CBC 02/15/19 Range/Units 03:35 WBC 8.0 (4.3-11.1) K/mcL Hgb 13.1 (11.5-15.4) g/dL Hct 41.1 (35.3-44.9) % Plt Count 469 H (140-400) K/mcL Neutrophils # 3.6 (1.6-8.9) K/mcL BMP 02/15/19 03:35 Sodium 135 L Potassium 4.4 Chloride 98 Carbon Dioxide 24 BUN 19 Creatinine 0.83 Glucose 363 H Calcium 9.4 Consult Discharge Plan - Plan Referrals: Neema Oropeza, TERRAZZO WORKER [Primary Care Provider] - (2) Diabetes Qualifiers: Diabetes mellitus type: type 2 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
[2019-02-15] MEDS ORDERED: *HR* PHENYLEPHRINE 1,000 MCG/10 ML SYRINGE IVP ONE (13:26)
[2019-02-15] MEDS ORDERED: *HR* Rocuronium Bromide 50 MG/5 ML VIAL ONE ×2 (13:26→13:30)
[2019-02-15] MEDS ORDERED: Famotidine 20 MG/2 ML VIAL ONE (13:27)
[2019-02-15] MEDS ORDERED: Tranexamic Acid 1,000 MG/10 ML VIAL ONE ×2 (13:27→16:13)
[2019-02-15] MEDS ORDERED: Protamine Sulfate 250 MG/25 ML VIAL IVP ONE (13:27)
[2019-02-15] MEDS ORDERED: Calcium Gluconate 1,000 MG/10 ML VIAL ONE (13:27)
[2019-02-15] MEDS ORDERED: *HR* Etomidate 20 MG/10 ML AMPUL IVP ONE (13:27)
[2019-02-15] MEDS ORDERED: Nitroglycerin 25 MG/250 ML INFUS..BTL IVC ONE (13:29)
[2019-02-15] MEDS ORDERED: NiCARdipine 2.5 MG/10 ML Syringe IVPB ONE (13:30)
[2019-02-15] MEDS ORDERED: Lidocaine -MPF 2% 2 ML VIAL ONE (13:31)
[2019-02-15] MEDS ORDERED: *HR* Midazolam HCl 5 MG/5 ML VIAL IVP ONE (13:35)
[2019-02-15] MEDS ORDERED: *HR* FentaNYL (PF) 1,000 MCG/20 ML VIAL ONE (13:35)
[2019-02-15 14:50] LABS: ABG Base Excess -1 mEq/L (-2 to 3); ABG Chloride 103 mEq/L (98-107); ABG Glucose 240 mg/dL (60-95); ABG HCO3 27 mEq/L (21-27); ABG Ionized Calcium 1.02 mmol/L (1.15-1.35); ABG Oxygen Saturation 89 % (95-98); ABG PCO2 64 mmHg (35-45); ABG PH 7.24 pH Units (7.32-7.45); ABG PO2 68 mmHg (85-104); ABG TCO2 29 mEq/L (20-26)
[2019-02-15] MEDS ORDERED: niCARdipine 20 MG/200 ML MLS IVC ONE (15:00)
--- NOTE | 2019-02-15 15:26 | Anesthesia Procedures ---
Date of Encounter: 02/15/19 Time of Encounter: 14:20 Procedures: Anesthesia - Arterial Line Consent obtained: written consent Time out performed: Yes Sedation: Versed (mg): 2 Sedation: Fentanyl (mcg): 100 Supplemental Oxygen via Nasal Cannula (L/min): 2 Size (Gauge): 20 Length (inches): 5 Technique Used: sterile prep, guide wire technique, direct puncture technique Post-Procedure: line taped into place, dry sterile dressing placed Patient tolerated procedure: well, no complications Complications: none Site: Radial L - Central Line Placement Right IJ Consent obtained: written consent Time out performed: Yes Patient placed on monitor/pulse ox: Yes MD prep: mask, gown, gloves Central line prep: Chlorhexidine scrub Ultrasound used for placement: Yes Technique: Seldinger Lumen Inserted: Introducer Size / Length: 9 Fr / 10 cm Post procedure: sutured in place, good blood return, all ports aspirated, flushed, capped, sterile dressing applied Patient tolerated procedure: well, no complications Complications: none Comments: introducer placed easily, swan placed without arrythmia, wedge approx 55cm
[2019-02-15] MEDS ORDERED: *HR* Heparin 5,000 UNIT/ML VIAL ONE (15:59)
[2019-02-15 16:06] LABS: ABG Base Excess -2 mEq/L (-2 to 3); ABG Chloride 102 mEq/L (98-107); ABG Glucose 226 mg/dL (60-95); ABG HCO3 26 mEq/L (21-27); ABG Ionized Calcium 1.12 mmol/L (1.15-1.35); ABG Oxygen Saturation 97 % (95-98); ABG PCO2 55 mmHg (35-45); ABG PH 7.28 pH Units (7.32-7.45); ABG PO2 105 mmHg (85-104); ABG TCO2 27 mEq/L (20-26)
[2019-02-15 16:31] LABS: ABG Base Excess -2 mEq/L (-2 to 3); ABG Chloride 96 mEq/L (98-107); ABG Glucose 311 mg/dL (60-95); ABG HCO3 25 mEq/L (21-27); ABG Oxygen Saturation 100 % (95-98); ABG PCO2 51 mmHg (35-45); ABG PO2 395 mmHg (85-104); ABG TCO2 26 mEq/L (20-26)
[2019-02-15 17:05] LABS: ABG Base Excess -2 mEq/L (-2 to 3); ABG Chloride 98 mEq/L (98-107); ABG Glucose 278 mg/dL (60-95); ABG HCO3 25 mEq/L (21-27); ABG Ionized Calcium 1.04 mmol/L (1.15-1.35); ABG Oxygen Saturation 100 % (95-98); ABG PCO2 48 mmHg (35-45); ABG PH 7.33 pH Units (7.32-7.45); ABG PO2 369 mmHg (85-104); ABG TCO2 26 mEq/L (20-26)
[2019-02-15] MEDS ORDERED: *HR* Amiodarone 150 MG/3 ML VIAL IVPB ONE (17:18)
[2019-02-15] MEDS ORDERED: Amiodarone Premix 360 MG/200 ML BAG IVC ONE ×2 (17:18→22:48)
[2019-02-15] MEDS ORDERED: Albumin Human 5% 50.0 GM/1,000 ML VIAL ONE (17:33)
[2019-02-15 17:52] LABS: ABG Base Excess -1 mEq/L (-2 to 3); ABG Chloride 96 mEq/L (98-107); ABG Glucose 252 mg/dL (60-95); ABG HCO3 24 mEq/L (21-27); ABG Oxygen Saturation 100 % (95-98); ABG PCO2 40 mmHg (35-45); ABG PH 7.39 pH Units (7.32-7.45); ABG PO2 377 mmHg (85-104); ABG TCO2 26 mEq/L (20-26)
[2019-02-15 18:16] LABS: ABG Base Excess -2 mEq/L (-2 to 3); ABG Chloride 102 mEq/L (98-107); ABG Glucose 205 mg/dL (60-95); ABG HCO3 24 mEq/L (21-27); ABG Ionized Calcium 1.26 mmol/L (1.15-1.35); ABG Oxygen Saturation 94 % (95-98); ABG PCO2 46 mmHg (35-45); ABG PH 7.33 pH Units (7.32-7.45); ABG PO2 77 mmHg (85-104); ABG TCO2 26 mEq/L (20-26)
--- NOTE | 2019-02-15 18:28 | Operative Note ---
Date of procedure: 02/15/19 Pre-op diagnosis: CAD Post-op diagnosis: same Procedure: 1. CABG3 (SEGAL to LAD, sequential SVG to D1 then OM 1). 2. Endoscopic vein harvesting, greater saphenous vein from left lower extremity. Implants: None. Complications: None. Anesthesia: GETA Surgeon: Barry Stein Was there an pediatric assistant present: Yes Manager Neonatal: Hema Rosado Estimated blood loss (cc): 500 Specimen: None. Condition: stable Disposition: ICU Procedure in Detail: INDICATIONS FOR OPERATION: The patient is a 53 year old type I diabetic, hypertensive lady with hypercholesterolemia and PAD. She began experiencing intermittent substernal chest pain radiating to her left neck and left shoulder, as well as shortness of breath 2 weeks prior to admission. The pain typically would occur in the evening when she was resting and would last for several hours before resolving spontaneously. She had severe substernal chest pain on 02/11/2019 which lasted until the next morning. When the pain did not resolve, she was evaluated at [facility] and she was found to have elevated troponin I levels consistent with an acute NSTEMI. She was treated medically and trans ferred to [facility] for further cardiac care. The patient underwent a transthoracic echocardiogram which revealed an LVEF 55- 60% with normal left ventricular size, and function. No significant valvular dysfunction was noted. She underwent cardiac catheterization this morning and was found to have severe 3 vessel CAD and an LVEF 55%. In particular, the patient has a 95% mid LAD lesion (before D1), a 90% mid LAD lesion (after D1), a 60-70% proximal LCx lesion, a 60-70% proximal OM1 lesion, an 80% mid PDA lesion (small vessel). She has been recommended for CABG. FINDINGS AT OPERATION: The aorta was of normal caliber without calcification. The coronary arteries measure approximately 1.5-2 mm in diameter and had mild to moderate distal disease, particularly the OM1 branch. The distal PDA was a small and diffusely diseased vessel and not bypassable. The greater saphenous vein was harvested endoscopically from the right lower extremity from the knee to the groin and was of good quality. The total bypass time was 84 minutes, cross-clamp time 62 minutes, intentional hypothermia of 35.5 degrees centigrade. DESCRIPTION OF OPERATION: After obtaining informed operative consent from the patient, she was taken to the operating room where a satisfactory general endotracheal anesthetic was induced. The monitoring lines were placed, the patient's chest, abdomen, and lower extremities were prepped and draped in a sterile fashion. The greater saphenous vein was harvested endoscopically from the right lower ext remity from the knee to the groin. The vein was removed, distended, and found to be of good quality. The subcutaneous tissue and skin edges were reapproximated using running Vicryl sutures. Simultaneously, a standard median sternotomy incision was made and the sternum divided. The SEGAL was taken down from its bed and side branches divided between hemoclips. The sternum was and the pericardium opened and reflected laterally. The patient was prepared for cannulation by placing pursestring sutures the distal ascending aorta, mid-ascending aorta, and right atrial appendage. The patient was heparinized and when the ACT was greater than 200 seconds, the distal ascending aorta was cannulated followed by placement of a dual stage venous cannula through the right atrial appendage and into the inferior vena cava a stab-in antegrade metabolic cannula was placed in the mid- ascending aorta. The ACT was less than 400 seconds after administering additional heparin and the patient received 2 units of FFP prior to initiating bypass. The patient was placed on bypass and the temperature allowed to drift to 35.5 degrees centigrade. The distal targets were identified and the aorta was crossclamped. The patient received 700 mL of cold antegrade crystalloid cardioplegia through the aortic root and the patient's heart obtained rapid diastolic arrest. The PDA branch was examined and found to be small and diffusely diseased after the 80% mid-PDA lesion. This vessel was not bypassable. The OM1 branch was opened be blade and a large amount of plaque was encountered. A long artery arterotomy incision was made through the plaque both proximally and distally. The vein was anastomosed in an end-to-side fashion to the OM1 branch using a running 7-0 Prolene suture. The anastomosis found to be hemostatic and the patient received a final dose of cold antegrade Crisler cartilage up to the aortic root. The D1 branch was opened be blade and the vein was opened longitudinal fashion so the [id number] anastomosis could be completed using running 7-0 Prolene suture. The anastomosis found to be hemostatic. The LAD was opened the [place] blade and the SEGAL was anastomosed in an end-to-side fashion using running 7-0 Prolene suture. The anastomosis found to be be hemostatic and the mammary pedicle was tacked to the epicardium using interrupted 5-0 silk suture. Rewarming was begun during this anastomosis. The aortic cross-clamp was released and the heart distended. The vein was measured and cut appropriate length. The antegrade metabolic cannula was removed and the aortotomy incision was enlarged performing were punch. The vein was anastomosed in end-to-side fashion to the aorta using a running 5-0 Prolene suture. The vein grafts is occluded with a bulldog clamp and de-aired the 25- gauge needle prior to removing the partial occluding clamp. The proximal distal anastomoses were found to be hemostatic and the proximal anastomosis was marked with radiopaque loop. Two right ventricular temporary epicardial pacing lesion placed, and 3 chest tubes were placed, 2 in the mediastinum and one in the left pleural space. During rewarming the patient's heart rhythm degenerated to ventricular fibrillation this required 10 J and 20 J direct-current shocks in order to gain normal sinus rhythm. When the patient's systemic temperature reached 36 degrees centigrade, the patient was ventilated and received volume. She was weaned from bypass required no inotropic support. Protamine was administered and the aortic and venous cannulae were removed. The pursestring sutures were secured. The venous cannulation site was reinforced with a pledgeted 4 Prolene suture. The pericardium could not be reapproximated the midline due to excessive tension. The sternum was reapproximated using doubled wires. The pectoralis major fascia, rectus abdominous fascia, subcutaneous tissue, and skin edges were reapproximated running Vicryl sutures. Sterile dressings were applied. The patient was transferred to the ICU in satisfactory postoperative condition. There were no intraoperative complications, and the instrument, needle, and sponge count were correct at end of operation. - Open Heart Detail ANDREA (Internal Mammary Artery) Usage: Yes Cardiopulmonary Bypass Time (mins): 84 Aortic Cross Clamp Time (mins): 62 Intentional Hypothermia Temperature (C.): 35.5
[2019-02-15] MEDS ORDERED: Potassium Chloride 40 MEQ/200 ML BAG IVPB PRN (18:29)
[2019-02-15] MEDS ORDERED: Insulin Regular, Human 100 UNIT/ML IV PRN (18:29)
[2019-02-15] MEDS ORDERED: *HR* Dextrose 50 % in Water (Syg) 50 ML SYRINGE IVP PRN (18:29)
[2019-02-15] MEDS ORDERED: Ondansetron 4 MG/2 ML VIAL IVP PRN (18:31)
[2019-02-15] MEDS ORDERED: Acetaminophen 325 MG TABLET PO PRN (18:31)
[2019-02-15] MEDS ORDERED: Naloxone 0.4 MG/ML INJ IVP PRN (18:31)
[2019-02-15] MEDS ORDERED: Acetaminophen 650 MG RECTAL SUPP RC PRN (18:31)
[2019-02-15] MEDS ORDERED: Calcium Gluconate 1gm/50mL 1 GM/50 ML BAG IVPB PRN (18:35)
[2019-02-15] MEDS: Insulin Human Regular 100 UNIT in 0.9 % Sodium Chloride 100 ML IVC SCH (18:40)
[2019-02-15] MEDS ORDERED: Pantoprazole 40 MG VIAL IVP ONE (18:40)
[2019-02-15 19:03] LABS: ABG Base Excess 2 mEq/L (-2 to 3); ABG HCO3 29 mEq/L (21-27); ABG Oxygen Saturation 100 % (95-98); ABG PCO2 55 mmHg (35-45); ABG PH 7.33 pH Units (7.32-7.45); ABG PO2 434 mmHg (85-104); ABG TCO2 30 mEq/L (20-26); Blood Gas PEEP 5 cm H2O; Blood Gas VT 600 cc
[2019-02-15 19:09] LABS: Basophils # 0.1 K/mcL (0.0-0.2); Basophils % 0.4 %; Eosinophils # 0.3 K/mcL (0.0-0.6); Eosinophils % 2.4 %; Hematocrit 30.5 % (35.3-44.9); Hemoglobin 9.9 g/dL (11.5-15.4); Immature Granulocytes % 1.2 % (0-4); Lymphocytes # 1.9 K/mcL (0.6-4.6); Lymphocytes % 15.2 %; Mean Corpuscular HGB Conc 32.5 g/dL (31.6-35.5); Mean Corpuscular Hemoglobin 29.9 pg (28.0-33.3); Mean Corpuscular Volume 92.1 fL (83.0-100.0); Mean Platelet Volume 9.3 fL (9.4-12.4); Monocytes # 0.8 K/mcL (0.0-1.3); Monocytes % 6.3 %; Neutrophils # 9.5 K/mcL (1.6-8.9); Platelet Count 215 K/mcL (140-400); Red Blood Count 3.31 M/mcL (3.82-4.97); Segmented Neutrophils % 74.5 %; White Blood Count 12.7 K/mcL (4.3-11.1)
[2019-02-15 19:16] LABS: INR 1.1; Prothrombin Time 12.8 Seconds (9.4-12.1)
[2019-02-15 19:18] LABS: Activated Partial Thrombo Time 32.6 Seconds (26.0-36.0)
[2019-02-15 19:27] LABS: BUN/Creatinine Ratio 15 (6-26); Blood Urea Nitrogen 14 mg/dL (6-20); Calcium 9.2 mg/dL (8.6-10.3); Carbon Dioxide 27 mEq/L (23-29); Chloride 102 mEq/L (98-107); Glucose 182 mg/dL (70-105); Magnesium 2.3 mg/dL (1.6-2.6); Osmolality,Calculated 285 (280-300); Potassium 4.3 mEq/L (3.5-5.1); Sodium 135 mEq/L (136-145); eGFR For African Americans > 60 (> 60); eGFR For Non-African Americans > 60 (> 60)
[2019-02-15] MEDS: 0.9 % Sodium Chloride w KCl 20 MEQ/1,000 ML MLS IVC SCH (19:35)
[2019-02-15] MEDS: niCARdipine 20 MG/200 ML MLS IVC SCH ×2 (19:36→19:52)
[2019-02-15] MEDS: Norepinephrine 4 MG in 0.9 % Sodium Chloride 250 ML IVC SCH (19:36)
[2019-02-15] MEDS: Nitroglycerin 25 MG/250 ML INFUS..BTL IVC SCH ×2 (19:36→19:53)
[2019-02-15] MEDS: Gabapentin 300 MG CAPSULE PO SCH (19:37)
[2019-02-15] MEDS: Furosemide 20 MG/2 ML VIAL IVP SCH (19:37)
[2019-02-15] MEDS: *HR* FentaNYL (PF) 100 MCG/2 ML VIAL IVP PRN ×2 (19:46→22:20)
[2019-02-15 22:43] LABS: ABG Base Excess 2 mEq/L (-2 to 3); ABG HCO3 29 mEq/L (21-27); ABG Oxygen Saturation 95 % (95-98); ABG PCO2 55 mmHg (35-45); ABG PH 7.33 pH Units (7.32-7.45); ABG PO2 80 mmHg (85-104); ABG TCO2 30 mEq/L (20-26); Blood Gas Modality VC; Blood Gas PEEP 5 cm H2O; Blood Gas VT 600 cc
[2019-02-15] MEDS: Amiodarone Premix 360 MG/200 ML BAG IVC SCH (23:05)
[2019-02-16] MEDS: Metoclopramide 10 MG/2 ML VIAL IVP SCH ×5 (00:14→23:23)
[2019-02-16] MEDS: *HR* OxyCODONE/APAP 5/325 TABLET PO PRN ×3 (00:14→20:41)
[2019-02-16] MEDS: Clindamycin 900 MG/50 ML 900 MG/50 ML IV.SOLN IVPB SCH ×2 (00:14→07:50)
[2019-02-16 02:03] LABS: ABG Base Excess 2 mEq/L (-2 to 3); ABG HCO3 29 mEq/L (21-27); ABG Oxygen Saturation 94 % (95-98); ABG PCO2 57 mmHg (35-45); ABG PH 7.32 pH Units (7.32-7.45); ABG PO2 80 mmHg (85-104); ABG TCO2 31 mEq/L (20-26); Blood Gas Modality CPAP/PS; Blood Gas PEEP 5 cm H2O; Blood Gas Pressure Support 5 cm H2O
[2019-02-16] MEDS: *HR* FentaNYL (PF) 100 MCG/2 ML VIAL IVP PRN (02:18)
[2019-02-16] MEDS: Nitroglycerin 25 MG/250 ML INFUS..BTL IVC SCH ×3 (02:41→23:22)
[2019-02-16] MEDS: niCARdipine 20 MG/200 ML MLS IVC SCH ×7 (02:42→23:22)
[2019-02-16 04:13] LABS: Basophils # 0.1 K/mcL (0.0-0.2); Basophils % 0.4 %; Eosinophils # 0.1 K/mcL (0.0-0.6); Eosinophils % 0.6 %; Hematocrit 34.5 % (35.3-44.9); Hemoglobin 11.1 g/dL (11.5-15.4); Immature Granulocytes % 0.5 % (0-4); Lymphocytes # 1.2 K/mcL (0.6-4.6); Lymphocytes % 9.5 %; Mean Corpuscular HGB Conc 32.2 g/dL (31.6-35.5); Mean Corpuscular Volume 93.2 fL (83.0-100.0); Mean Platelet Volume 9.8 fL (9.4-12.4); Monocytes # 0.9 K/mcL (0.0-1.3); Monocytes % 7.6 %; Neutrophils # 10.1 K/mcL (1.6-8.9); Platelet Count 262 K/mcL (140-400); Red Cell Distribution Width 14.2 % (11.5-14.5); Segmented Neutrophils % 81.4 %; White Blood Count 12.4 K/mcL (4.3-11.1)
[2019-02-16 04:27] LABS: Prothrombin Time 11.6 Seconds (9.4-12.1)
[2019-02-16 04:28] LABS: Activated Partial Thrombo Time 29.9 Seconds (26.0-36.0)
[2019-02-16 04:32] LABS: BUN/Creatinine Ratio 15 (6-26); Blood Urea Nitrogen 14 mg/dL (6-20); Calcium 9.3 mg/dL (8.6-10.3); Carbon Dioxide 27 mEq/L (23-29); Chloride 103 mEq/L (98-107); Glucose 173 mg/dL (70-105); Magnesium 1.9 mg/dL (1.6-2.6); Osmolality,Calculated 289 (280-300); Potassium 4.5 mEq/L (3.5-5.1); Sodium 137 mEq/L (136-145); eGFR For African Americans > 60 (> 60); eGFR For Non-African Americans > 60 (> 60)
[2019-02-16] MEDS: Insulin LISPRO 300 UNITS/3 ML VIAL SQ SCH ×4 (06:12→13:58)
[2019-02-16] MEDS: Insulin DETEMIR 100 UNIT/ML X5UNITS SQ SCH (07:43)
[2019-02-16] MEDS: Chlorhexidine Rinse 15 ML MOUTHWASH MM SCH ×2 (07:50→20:41)
[2019-02-16] MEDS: Pantoprazole 40 MG VIAL IVP SCH (07:50)
--- NOTE | 2019-02-16 07:55 | Cardiothoracic Progress Note ---
Date of Encounter: 02/16/19 Time of Encounter: 07:53 - Assessment and plan (1) NSTEMI (non-ST elevated myocardial infarction) Current Visit: Yes Status: Acute The patient is recovering well from her CABG3. The arterial line, Valencia catheter, and [place]-Magdalena catheter be removed. The patient will be monitored in the ICU today for aggressive pulmonary toilet. The assessment and plan as outlined above was discussed with the patient and/or family members who expressed understanding and agreement. All questions were answered. - Subjective Procedure(s) Performed: POD#1 S/P CABG3 Interval history: The patient remained hemodynamically stable overnight. She is currently extubated and breathing comfortably. She has no complaints. Vital Signs, Last 4 Hours Temp Pulse Resp BP Pulse Ox 02/16/19 07:22 97.8 F 02/16/19 07:00 98.3 F 118 16 140/64 90 02/16/19 06:00 98.3 F 114 14 129/60 90 02/16/19 05:00 98.3 F 112 16 132/61 92 02/16/19 04:00 98.1 F 109 18 137/65 91 Oxgyen Flow Rate Oxygen Flow Rate (LPM) 15 Clinical Data, last 8 Hours Output, Chest Tube Drainage 10 Amount [Mediastinal #2] Output, Chest Tube Drainage 11 Amount [Mediastinal #2] Output, Chest Tube Drainage 12 Amount [Mediastinal #2] Output, Chest Tube Drainage 7 Amount [Mediastinal #2] Output, Chest Tube Drainage 0 Amount [Mediastinal #2] Output, Chest Tube Drainage 10 Amount [Mediastinal #2] Output, Chest Tube Drainage 0 Amount [Mediastinal #2] Output, Chest Tube Drainage 7 Amount [Mediastinal #2] Output, Chest Tube Drainage 3 Amount [Mediastinal #2] Output, Chest Tube Drainage 10 Amount [Mediastinal #1] Output, Chest Tube Drainage 18 Amount [Mediastinal #1] Output, Chest Tube Drainage 28 Amount [Mediastinal #1] Output, Chest Tube Drainage 20 Amount [Mediastinal #1] Output, Chest Tube Drainage 22 Amount [Mediastinal #1] Output, Chest Tube Drainage 55 Amount [Mediastinal #1] Output, Chest Tube Drainage 23 Amount [Mediastinal #1] Output, Chest Tube Drainage 16 Amount [Mediastinal #1] Output, Chest Tube Drainage 23 Amount [Mediastinal #1] Weight 02/14/19 02/15/19 02/16/19 23:59 23:59 23:59 Weight 109.9 kg 109 kg 109.9 kg - Physical Examination General: Conversant, No Apparent Distress Neck: No JVD, Normal carotid pulses Cardiac: Reg Rate and Rhythm, Normal S1 and S2, No Murmur Incision: No signs of infection, Dry/intact dressing Sternum: Stable Chest tubes: Minimal drainage, Other (No air leak) Lungs: Normal Breath Sounds, No Wheeze, Rales, Rhonchi Neuro: Alert and responsive, No focal deficits noted Vascular: Normal capillary refill Extremities: No Clubbing, No Cyanosis - Labs 02/16/19 03:54 02/16/19 03:54 Lab Results, Last 24 hours 02/15/19 02/15/19 02/15/19 19:06 19:06 19:06 WBC 12.7 H D Hgb 9.9 L D Hct 30.5 L Plt Count 215 D INR 1.1 APTT 32.6 Sodium 135 L Potassium 4.3 Chloride 102 Carbon Dioxide 27 BUN 14 Creatinine 0.95 Glucose 182 H Calcium 9.2 Magnesium 2.3 02/16/19 02/16/19 02/16/19 03:54 03:54 03:54 WBC 12.4 H Hgb 11.1 L Hct 34.5 L Plt Count 262 INR 1.0 APTT 29.9 Sodium 137 Potassium 4.5 Chloride 103 Carbon Dioxide 27 BUN 14 Creatinine 0.93 Glucose 173 H Calcium 9.3 Magnesium 1.9 - Imaging Chest Xray: image reviewed (No pneumothorax. Minimal atelectasis/infiltrates.) - VTE Documentation of Mechanical Device: Graduated compression elastic hosiery Consult Discharge Plan - Plan Referrals: Neema Oropeza CNP [Primary Care Provider] -
[2019-02-16] MEDS: Insulin Human Regular 100 UNIT in 0.9 % Sodium Chloride 100 ML IVC SCH (07:57)
[2019-02-16] MEDS: Gabapentin 300 MG CAPSULE PO SCH ×4 (08:05→20:42)
[2019-02-16] MEDS: Furosemide 20 MG/2 ML VIAL IVP SCH ×2 (08:05→20:41)
[2019-02-16] MEDS: Aspirin Enteric Coated 81 MG Tablet PO SCH (08:05)
[2019-02-16] MEDS ORDERED: D5% in Water 1,000 ML IVC PRN (08:07)
[2019-02-16] MEDS ORDERED: *HR* Dextrose 50 % in Water (Syg) 50 ML SYRINGE IVP PRN (08:07)
[2019-02-16] MEDS ORDERED: Dextrose Gel 15 GM/37.5 ML TUBE PO PRN ×2 (08:07)
[2019-02-16] MEDS ORDERED: *HR* FentaNYL (PF) 100 MCG/2 ML VIAL IVP PRN (08:09)
[2019-02-16] MEDS: amLODIPine 5 MG TABLET PO SCH (09:45)
[2019-02-16] MEDS ORDERED: Heparin 25,000 UNIT/250 ML D5W 25,000 UNIT/250 ML IV.SOLN IVC SCH (09:45)
[2019-02-16] MEDS: *HR* Heparin 5,000 UNIT/ML VIAL SQ SCH ×2 (09:45→17:08)
[2019-02-16] MEDS: Amiodarone Premix 360 MG/200 ML BAG IVC SCH ×2 (09:47→21:04)
[2019-02-16] MEDS ORDERED: Levalbuterol Neb 1.25 MG/3 ML ONE (11:10)
[2019-02-16] MEDS: Levalbuterol Neb 1.25 MG/3 ML IH SCH ×3 (11:14→21:28)
--- NOTE | 2019-02-16 11:14 | Pulmonology Consult Note ---
<Mick Peters S - Last Filed: 02/16/19 11:25> Date of Encounter: 02/16/19 Time of Encounter: 11:12 Assessment and Plan (1) COPD (chronic obstructive pulmonary disease) Current Visit: Yes Status: Acute Patient's respiratory effort is good, satting well on oxi-mask, but reporting shortness of breath that wakes her from sleep Cough productive of copious amounts of whitish clear sputum, not significant change from baseline per patient Chest x-ray shows peribronchial cuffing with cephalization of pulmonary vasculature, no new infiltrates compared to prior study ABG shows moderate acidemia, with PCO2 of 57, PO2 80, bicarbonate 29. Albuterol nebs ordered * Continue Lasix as ordered by Dr. Stein * Trial of BiPAP at 04/29, repeat ABG at least 30 minutes after initiation of BiPAP * Patient has incentive spirometer, will encouraged to use when off BiPAP * Check pro-Gume * Add Xopenex nebs 1.5 mg every 6 hours Qualifiers: COPD type: unspecified COPD Qualified Code(s): J44.9 - Chronic obstructive pulmonary disease, unspecified History of Present Illness Consult date: 02/16/19 Requesting physician: Barry Stein Reason for consult: COPD History of present illness: Mrs Weiner is a 53-year-old female status post CABG, maze procedure on 02/15 with a past history of COPD,Diabetes, hypertension, peripheral artery disease Originally presented for intermittent chest pain 2 weeks and was found to have elevated troponin. Echo showed mild left-sided LVH, EF of 55-60. LHC showed severe triple vessel disease, and patient was referred for CABG. She underwent CABG yesterday, 02/15. Dr. Stein saw the patient today, and asked us to follow her for her history of COPD and recurrent productive cough. Patient reports feeling okay, she has had significant, forceful coughing throughout the day productive of thick whitish clear sputum. She reports feeling as though she cannot clear her lungs, but reports that this cough is not significantly different from her baseline. Reporting expected postoperative pain, but no other pains She appears very tired, and reports that she keeps falling asleep, but wakes up gasping for breath. She is currently on 15 L by oxi-mask, reports no history of MEDHAT and no CPAP use at home. Past Med Surg Social Fam HX - Past Medical History Medical history: coronary artery disease, diabetes, hyperlipidemia, hypertension, peripheral artery disease Additional medical history: Hardening of the arteries Psychiatric history: anxiety, panic disorder - Past Surgical History Surgical History: appendectomy, vascular surgery (Right SFA angioplasty), LE stent (s) (Right SFA stent) Additional surgical history: appendectomy, ANGIOPLASTY WITH STENT LEFT 2011,RIGHT ANGIOPLASTY 2013, 2016, leasions removed from uterus - Social History Smoking Status: Current every day smoker Packs per day: 1PPD x 40YRS Smokeless Tobacco Status: No Alcohol use: none Drug use: none - Family History Sister Hx Family Cardiac Disorders: Yes Hx Family Cancer: Yes Mother Hx Family Cardiac Disorders: Yes Medications and Allergies Albuterol Sulfate [Proventil Inhaler] 2 puff IH Q4HR PRN 01/14/17 [History] Amlodipine Besylate 10 mg PO DAILY 01/14/17 [History] Aspirin [Lo-Dose Aspirin EC] 81 mg PO DAILY 01/14/17 [History] Gabapentin [Neurontin] 600 mg PO TID 01/14/17 [History] Insulin ASPART [NovoLOG] 30 unit SQ TID 01/14/17 [History] Losartan Potassium [Cozaar] 50 mg PO DAILY 01/14/17 [History] Metoprolol [Lopressor] 50 mg PO BID 01/14/17 [History] Prasugrel [Effient] 10 mg PO DAILY 01/14/17 [History] Albuterol Neb [AccuNeb] 1.25 mg IH Q4-6H PRN 02/12/19 [History] Insulin LISPRO [Humalog Kwikpen U-100] 30 units SQ TID 02/12/19 [History] Metformin HCl 1,000 mg PO BID 02/12/19 [History] Allergy/AdvReac Type Severity Reaction Status Date / Time Penicillins [PCN] AdvReac Intermediate Vomiting Verified 02/12/19 16:06 clopidogrel [From Plavix] AdvReac See Verified 02/12/19 16:06 Comments lisinopril AdvReac Cough Verified 02/12/19 16:06 quinapril [From Accupril] AdvReac Cough Verified 02/12/19 16:06 All Systems: The remainder of the systems were reviewed and are negative - Constitutional Constitutional: no fever(s) - EENT Nose, mouth and throat: dry mouth - Cardiovascular Cardiovascular: chest pain (Postoperative) - Respiratory Respiratory: cough, chest congestion, excessive phlegm production, no hemoptysis, no change in phlegm color - Gastrointestinal Gastrointestinal: no nausea, no vomiting Physical Examination Vital Signs: Vital Signs, Last 4 Hours Temp Pulse Resp BP Pulse Ox 02/16/19 10:10 98 02/16/19 10:00 95 18 127/61 89 02/16/19 09:00 105 18 122/55 94 02/16/19 08:00 115 15 123/58 89 02/16/19 07:22 97.8 F General appearance: lethargic, appears uncomfortable Eyes: nonicteric ENT: oropharynx dry Effort: mildly labored Auscultation: right: diminished breath sounds (Mildly), bilateral: wheezes (Mild), rhonchi (Severe, cleared somewhat after coughing) Cardiovascular: regular rate and rhythm Gastrointestinal: soft, non-tender, non-distended pupils equal and round, other (Patient is getting Percocet for postoperative pain, appears to be contributing to her lethargy) Results - Laboratory Findings CBC and BMP: 02/16/19 03:54 02/16/19 03:54 ABG ABG pH 7.32 pH Units (7.32-7.45) 02/16/19 01:59 ABG pCO2 57 mmHg (35-45) H 02/16/19 01:59 ABG pO2 80 mmHg (85-104) L 02/16/19 01:59 ABG O2 Saturation 94 % (95-98) L 02/16/19 01:59 PT/INR, D-dimer PT 11.6 Seconds (9.4-12.1) 02/16/19 03:54 Abnormal lab findings: Abnormal lab results WBC 12.4 K/mcL (4.3-11.1) H 02/16/19 03:54 RBC 3.70 M/mcL (3.82-4.97) L 02/16/19 03:54 Hgb 11.1 g/dL (11.5-15.4) L 02/16/19 03:54 Hct 34.5 % (35.3-44.9) L 02/16/19 03:54 Plt Count 469 K/mcL (140-400) H 02/15/19 03:35 MPV 9.3 fL (9.4-12.4) L 02/15/19 19:06 Neutrophils # 10.1 K/mcL (1.6-8.9) H 02/16/19 03:54 PT 12.8 Seconds (9.4-12.1) H 02/15/19 19:06 Heparin Anti-Xa, Unfract 0.28 IU/mL (0.30-0.70) L 02/14/19 19:55 ABG pH 7.30 pH Units (7.32-7.45) L 02/15/19 16:24 ABG pCO2 57 mmHg (35-45) H 02/16/19 01:59 ABG pO2 80 mmHg (85-104) L 02/16/19 01:59 ABG HCO3 29 mEq/L (21-27) H 02/16/19 01:59 ABG Total CO2 31 mEq/L (20-26) H 02/16/19 01:59 ABG O2 Saturation 94 % (95-98) L 02/16/19 01:59 ABG Hematocrit 22.0 % (35.3-44.9) L 02/15/19 17:53 ABG Chloride 96 mEq/L (98-107) L 02/15/19 17:22 Glucose 205 mg/dL (60-95) H 02/15/19 17:53 Sodium 135 mEq/L (136-145) L 02/15/19 19:06 Glucose 173 mg/dL (70-105) H 02/16/19 03:54 POC Glucose 181 mg/dL (70-99) H 02/16/19 00:01 Hemoglobin A1c 10.4 % (-5.6) H 02/14/19 17:57 Troponin I 0.59 ng/mL (< 0.04) H* 02/12/19 22:43 Triglycerides 549 mg/dL (< 150) H 02/14/19 06:37 HDL Cholesterol 28 mg/dL (40-59) L 02/14/19 06:37 Cholesterol/HDL Ratio 6.6 (0-4.9) H 02/14/19 06:37 Arterial Blood Ionized Calcium 1.00 mmol/L (1.15-1.35) L 02/15/19 17:22 Crossmatch See Detail 02/14/19 17:57 - Clinical Findings Intake & Output: Intake & Output 02/15/19 02/16/19 02/16/19 23:59 07:59 15:59 Intake Total 334.4 / 530.4 1372.9 / 1754.6 381.7 / 1754.6 Output Total 1395 / 1546 836 / 836 Balance -1060.6 / -1015.6 536.9 / 918.6 381.7 / 918.6 Weight 109.9 kg Consult Discharge Plan - Plan Referrals: Neema Oropeza CNP [Primary Care Provider] - <Galilea Pascual S - Last Filed: 02/16/19 16:12> Date of Encounter: 02/16/19 All Systems: The remainder of the systems were reviewed and are negative Physical Examination Vital Signs: Vital Signs, Last 4 Hours Pulse Resp BP Pulse Ox 02/16/19 16:00 89 02/16/19 14:00 84 16 127/59 95 02/16/19 13:00 80 14 118/62 97 Results - Laboratory Findings CBC and BMP: 02/16/19 03:54 02/16/19 03:54 ABG ABG pH 7.36 pH Units (7.32-7.45) 02/16/19 11:13 ABG pCO2 50 mmHg (35-45) H 02/16/19 11:13 ABG pO2 188 mmHg (85-104) H 02/16/19 11:13 ABG O2 Saturation 100 % (95-98) H 02/16/19 11:13 PT/INR, D-dimer PT 11.6 Seconds (9.4-12.1) 02/16/19 03:54 Abnormal lab findings: Abnormal lab results WBC 12.4 K/mcL (4.3-11.1) H 02/16/19 03:54 RBC 3.70 M/mcL (3.82-4.97) L 02/16/19 03:54 Hgb 11.1 g/dL (11.5-15.4) L 02/16/19 03:54 Hct 34.5 % (35.3-44.9) L 02/16/19 03:54 Plt Count 469 K/mcL (140-400) H 02/15/19 03:35 MPV 9.3 fL (9.4-12.4) L 02/15/19 19:06 Neutrophils # 10.1 K/mcL (1.6-8.9) H 02/16/19 03:54 PT 12.8 Seconds (9.4-12.1) H 02/15/19 19:06 Heparin Anti-Xa, Unfract 0.28 IU/mL (0.30-0.70) L 02/14/19 19:55 ABG pH 7.30 pH Units (7.32-7.45) L 02/15/19 16:24 ABG pCO2 50 mmHg (35-45) H 02/16/19 11:13 ABG pO2 188 mmHg (85-104) H 02/16/19 11:13 ABG HCO3 28 mEq/L (21-27) H 02/16/19 11:13 ABG Total CO2 30 mEq/L (20-26) H 02/16/19 11:13 ABG O2 Saturation 100 % (95-98) H 02/16/19 11:13 ABG Hematocrit 22.0 % (35.3-44.9) L 02/15/19 17:53 ABG Chloride 96 mEq/L (98-107) L 02/15/19 17:22 Glucose 205 mg/dL (60-95) H 02/15/19 17:53 Sodium 135 mEq/L (136-145) L 02/15/19 19:06 Glucose 173 mg/dL (70-105) H 02/16/19 03:54 POC Glucose 181 mg/dL (70-99) H 02/16/19 00:01 Hemoglobin A1c 10.4 % (-5.6) H 02/14/19 17:57 Troponin I 0.59 ng/mL (< 0.04) H* 02/12/19 22:43 Triglycerides 549 mg/dL (< 150) H 02/14/19 06:37 HDL Cholesterol 28 mg/dL (40-59) L 02/14/19 06:37 Cholesterol/HDL Ratio 6.6 (0-4.9) H 02/14/19 06:37 Arterial Blood Ionized Calcium 1.00 mmol/L (1.15-1.35) L 02/15/19 17:22 Crossmatch See Detail 02/14/19 17:57 - Clinical Findings Intake & Output: Intake & Output 02/16/19 02/16/19 02/16/19 07:59 15:59 23:59 Intake Total 1372.9 / 2355.1 982.2 / 2355.1 Output Total 836 / 1601 765 / 1601 Balance 536.9 / 754.1 217.2 / 754.1 Weight 109.9 kg - Attending Attestation I saw and evaluated this patient and my medical decision-making was reviewed with the Resident Physician. I agree with the documented findings, disposition and treatment plan as described except to the extent set forth below. We independently had [id number] contact with the patient Patient seen and examined at bedside Labs, radiology, chart personally reviewed. Management was reviewed during multidisciplinary critical care rounds. WEBLOGIC DEVELOPER: Patient is conscious oriented following commands. No evidence of encephalopathy Pulm: Patient has acceptable oxygenation and ventilation patient has COPD with a background of her significant hydrostatic pulmonary edema in the chest x-ray causing this V/Q mismatch ration will need aggressive bronchopulmonary toileting incentive spirometry agree with gentle diuresis patient might benefit from intermittent posterior airway pressure therapy like michaela level pressure support Cards: Patient had myocardial infarction now supported by CABG management according to cardiothoracic. To continue preload and afterload this will help in the management of hydrostatic pulmonary edema FEN-GI: Advance diet as tolerated Renal: Labs and output were reviewed ID: No active consolidative opacity in the chest x-ray probe calcitonin was negative will hold off antibiotics at this moment Heme/Onc: Labs were reviewed Endo: Glucose Monitored Integ/MSK: Skin Care per routine ICU Nursing Protocol to prevent ulcers. Lines: All lines examined without evidence of infection : Dispo: stay in ICU for aggressive bronchopulmonary toileting as patient has high risk for endotracheal intubation CODE: full code
[2019-02-16 11:17] LABS: ABG Base Excess 2 mEq/L (-2 to 3); ABG HCO3 28 mEq/L (21-27); ABG Oxygen Saturation 100 % (95-98); ABG PCO2 50 mmHg (35-45); ABG PH 7.36 pH Units (7.32-7.45); ABG PO2 188 mmHg (85-104); ABG TCO2 30 mEq/L (20-26)
[2019-02-16] MEDS: 0.9 % Sodium Chloride w KCl 20 MEQ/1,000 ML MLS IVC SCH (14:28)
[2019-02-16] MEDS: Norepinephrine 4 MG in 0.9 % Sodium Chloride 250 ML IVC SCH (16:49)
[2019-02-16] MEDS ORDERED: Insulin LISPRO 300 UNITS/3 ML VIAL SQ SCH (21:00)
--- NOTE | 2019-02-16 21:48 | Electrocardiograph Report ---
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
[2019-02-17] MEDS: *HR* OxyCODONE/APAP 5/325 TABLET PO PRN ×5 (01:22→22:05)
[2019-02-17] MEDS: Levalbuterol Neb 1.25 MG/3 ML IH SCH ×4 (03:33→21:37)
[2019-02-17] MEDS: niCARdipine 20 MG/200 ML MLS IVC SCH ×6 (04:11→22:05)
[2019-02-17 04:40] LABS: Basophils # 0.1 K/mcL (0.0-0.2); Basophils % 0.4 %; Eosinophils # 0.1 K/mcL (0.0-0.6); Eosinophils % 1.1 %; Hematocrit 32.4 % (35.3-44.9); Hemoglobin 10.3 g/dL (11.5-15.4); Immature Granulocytes % 0.4 % (0-4); Lymphocytes # 1.6 K/mcL (0.6-4.6); Lymphocytes % 13.6 %; Mean Corpuscular HGB Conc 31.8 g/dL (31.6-35.5); Mean Corpuscular Hemoglobin 29.9 pg (28.0-33.3); Mean Corpuscular Volume 93.9 fL (83.0-100.0); Mean Platelet Volume 9.7 fL (9.4-12.4); Monocytes # 1.1 K/mcL (0.0-1.3); Monocytes % 9.5 %; Neutrophils # 8.6 K/mcL (1.6-8.9); Platelet Count 239 K/mcL (140-400); Red Blood Count 3.45 M/mcL (3.82-4.97); Red Cell Distribution Width 14.6 % (11.5-14.5); White Blood Count 11.4 K/mcL (4.3-11.1)
[2019-02-17 05:00] LABS: BUN/Creatinine Ratio 19 (6-26); Blood Urea Nitrogen 15 mg/dL (6-20); Calcium 8.9 mg/dL (8.6-10.3); Carbon Dioxide 28 mEq/L (23-29); Chloride 98 mEq/L (98-107); Glucose 270 mg/dL (70-105); Osmolality,Calculated 288 (280-300); Potassium 4.6 mEq/L (3.5-5.1); Sodium 134 mEq/L (136-145); eGFR For African Americans > 60 (> 60); eGFR For Non-African Americans > 60 (> 60)
[2019-02-17] MEDS: Metoclopramide 10 MG/2 ML VIAL IVP SCH ×4 (05:38→23:16)
[2019-02-17] MEDS: *HR* Heparin 5,000 UNIT/ML VIAL SQ SCH ×2 (05:38→18:02)
[2019-02-17 05:39] LABS: ABG Base Excess 5 mEq/L (-2 to 3); ABG HCO3 31 mEq/L (21-27); ABG Oxygen Saturation 86 % (95-98); ABG PCO2 52 mmHg (35-45); ABG PH 7.38 pH Units (7.32-7.45); ABG PO2 54 mmHg (85-104); ABG TCO2 33 mEq/L (20-26); Blood Gas Modality BiLevel; Blood Gas PEEP 6 cm H2O; Blood Gas Pressure Support 12 cm H2O
--- NOTE | 2019-02-17 07:18 | Anesthesia Evaluation Post Op ---
Date of Encounter: 02/17/19 Time of Encounter: 07:00 - Vital Signs Vital Signs: Selected Entries 02/17/19 04:00 02/17/19 06:00 Temperature 98.3 F Pulse Rate 99 Respiratory Rate 22 Blood Pressure 130/76 O2 Sat by Pulse Oximetry 88 Oxygen Flow Rate (LPM) 10 Oxygen Delivery Method Oxymask - Lungs Lungs: Wheezes, Rhonchi - Airway Airway: Non-obstructed - Cardiovascular Regular Rate - Mental Status Mental Status: Alert & Oriented, Answers Appropriately - Pain Pain Scale: 4 Pain Scale used: Numeric (1 - 10) - Nausea Vomiting Nausea Vomiting: Not Present - Hydration Hydration: Tolerates oral liquids, Valencia catheter Notes: 02/17/19 07:16 patient recovering from CABG with some respiratory issues, probably secondary to her long history of smoking. Pulmonary is following and treating.
[2019-02-17 08:21] LABS: ABG Base Excess 4 mEq/L (-2 to 3); ABG HCO3 31 mEq/L (21-27); ABG Oxygen Saturation 86 % (95-98); ABG PCO2 55 mmHg (35-45); ABG PH 7.36 pH Units (7.32-7.45); ABG PO2 55 mmHg (85-104); ABG TCO2 33 mEq/L (20-26); Blood Gas PEEP 6 cm H2O; Blood Gas Pressure Support 12 cm H2O
[2019-02-17] MEDS: Furosemide 20 MG/2 ML VIAL IVP SCH ×2 (08:32→20:42)
[2019-02-17] MEDS: Pantoprazole 40 MG VIAL IVP SCH (08:32)
[2019-02-17] MEDS: Aspirin Enteric Coated 81 MG Tablet PO SCH (08:32)
[2019-02-17] MEDS: Chlorhexidine Rinse 15 ML MOUTHWASH MM SCH ×2 (08:32→20:42)
[2019-02-17] MEDS: Nitroglycerin 25 MG/250 ML INFUS..BTL IVC SCH ×3 (08:33→22:04)
[2019-02-17] MEDS: amLODIPine 5 MG TABLET PO SCH (08:33)
[2019-02-17] MEDS: Gabapentin 300 MG CAPSULE PO SCH ×3 (08:33→20:42)
[2019-02-17] MEDS: Insulin LISPRO 300 UNITS/3 ML VIAL SQ SCH ×4 (08:34→20:43)
[2019-02-17] MEDS ORDERED: Insulin DETEMIR 100 UNIT/ML X5UNITS SQ SCH (09:00)
--- NOTE | 2019-02-17 09:47 | Pulmonology Progress Note ---
<PetersMick S - Last Filed: 02/17/19 13:49> Date of Encounter: 02/17/19 Time of Encounter: 09:47 Assessment and Plan (1) COPD (chronic obstructive pulmonary disease) Current Visit: Yes Status: Acute Patient continues to have good respiratory effort, saturation is acceptable on intermittent BiPAP with brakes on oximask Continues to have cough productive of sputum, starting to yellow, less volume than yesterday X-rays after removal of chest tube, mediastinal tube, surgical drain without evidence of new acute pulmonary disease, X-rays did show some residual peribronchial cuffing and cephalization of pulmonary vasculature also seen on imaging from yesterday Pro calcitonin low at 0.07 Blood gas is not significantly changed from yesterday, expect improvement as respiration improves * Added a mid day dose of Lasix to attempt to increase diuresis to address pulmonary edema seen on imaging * Continue BiPAP as needed, per patient's comfort and oxygen saturation * Strongly encouraging incentive spirometer when not on BiPAP * Continue pain management to encourage adequate diaphragmatic excursion with inspiration Qualifiers: COPD type: unspecified COPD Qualified Code(s): J44.9 - Chronic obstructive pulmonary disease, unspecified Subjective Principal diagnosis: S/P CABG Interval history: Mrs. Weiner is a 53 year old female status post CABG, maze procedure on 02/15 with past history of COPD, diabetes, hypertension, peripheral artery disease. No acute events overnight, she did well on BiPAP, but eventually could not tolerate BiPAP anymore and moved back to an oximask. She reports she is feeling much better today. Her mediastinal tube, chest tube, and drain were removed by CT surgery today, she reports significant decrease in her pain since they were removed. Her chest pain from her sternotomy is well controlled on her current pain management regimen, and she reports no shortness of breath, dizziness, lightheadedness, weakness/numbness/tingling anywhere, abdominal pain, nausea, vomiting, edema. She also reports no increase in her pain with inspiration Objective PUL Vital signs: Last Vital Signs Temp 98.0 F 02/17/19 07:55 Pulse 105 02/17/19 09:00 Resp 17 02/17/19 09:00 BP 144/83 02/17/19 09:00 Pulse Ox 87 02/17/19 09:00 General appearance: alert Eyes: nonicteric ENT: oropharynx moist Effort: mildly labored Auscultation: bilateral: rhonchi (Significantly improved from yesterday) Cardiovascular: regular rate and rhythm Gastrointestinal: soft, non-tender, non-distended Integumentary: normal Extremities: no cyanosis, no edema (Compression stockings in place) Musculoskeletal: no deformities non-focal exam mood appropriate, affect normal Results - Laboratory Findings CBC and BMP: 02/17/19 04:19 02/17/19 04:19 ABG ABG pH 7.36 pH Units (7.32-7.45) 02/17/19 08:19 ABG pCO2 55 mmHg (35-45) H 02/17/19 08:19 ABG pO2 55 mmHg (85-104) L 02/17/19 08:19 ABG O2 Saturation 86 % (95-98) L 02/17/19 08:19 PT/INR, D-dimer PT 11.6 Seconds (9.4-12.1) 02/16/19 03:54 Abnormal lab findings: Abnormal lab results WBC 11.4 K/mcL (4.3-11.1) H 02/17/19 04:19 RBC 3.45 M/mcL (3.82-4.97) L 02/17/19 04:19 Hgb 10.3 g/dL (11.5-15.4) L 02/17/19 04:19 Hct 32.4 % (35.3-44.9) L 02/17/19 04:19 RDW 14.6 % (11.5-14.5) H 02/17/19 04:19 Plt Count 469 K/mcL (140-400) H 02/15/19 03:35 MPV 9.3 fL (9.4-12.4) L 02/15/19 19:06 Neutrophils # 10.1 K/mcL (1.6-8.9) H 02/16/19 03:54 PT 12.8 Seconds (9.4-12.1) H 02/15/19 19:06 Heparin Anti-Xa, Unfract 0.28 IU/mL (0.30-0.70) L 02/14/19 19:55 ABG pH 7.30 pH Units (7.32-7.45) L 02/15/19 16:24 ABG pCO2 55 mmHg (35-45) H 02/17/19 08:19 ABG pO2 55 mmHg (85-104) L 02/17/19 08:19 ABG HCO3 31 mEq/L (21-27) H 02/17/19 08:19 ABG Total CO2 33 mEq/L (20-26) H 02/17/19 08:19 ABG O2 Saturation 86 % (95-98) L 02/17/19 08:19 ABG Base Excess 4 mEq/L (-2 to 3) H 02/17/19 08:19 ABG Hematocrit 22.0 % (35.3-44.9) L 02/15/19 17:53 ABG Chloride 96 mEq/L (98-107) L 02/15/19 17:22 Glucose 205 mg/dL (60-95) H 02/15/19 17:53 Sodium 134 mEq/L (136-145) L 02/17/19 04:19 Glucose 270 mg/dL (70-105) H 02/17/19 04:19 POC Glucose 271 mg/dL (70-99) H 02/16/19 20:45 Hemoglobin A1c 10.4 % (-5.6) H 02/14/19 17:57 Troponin I 0.59 ng/mL (< 0.04) H* 02/12/19 22:43 Triglycerides 549 mg/dL (< 150) H 02/14/19 06:37 HDL Cholesterol 28 mg/dL (40-59) L 02/14/19 06:37 Cholesterol/HDL Ratio 6.6 (0-4.9) H 02/14/19 06:37 Arterial Blood Ionized Calcium 1.00 mmol/L (1.15-1.35) L 02/15/19 17:22 Crossmatch See Detail 02/14/19 17:57 - Clinical Findings Intake & Output: Intake & Output 02/16/19 02/17/19 02/17/19 23:59 07:59 15:59 Intake Total 218.9 / 2582.0 600 / 600 Output Total 125 / 1966 1143 / 1593 450 / 1593 Balance 93.9 / 616.0 -543 / -993 -450 / -993 Weight 110.9 kg - VTE Documentation of Mechanical Device: Graduated compression elastic hosiery Consult Discharge Plan - Plan Referrals: Neema Oropeza CNP [Primary Care Provider] - <JamesGalilea temple S - Last Filed: 02/17/19 22:26> Date of Encounter: 02/17/19 Objective PUL Vital signs: Last Vital Signs Temp 97.8 F 02/17/19 20:00 Pulse 98 02/17/19 22:00 Resp 20 02/17/19 22:00 BP 132/94 02/17/19 22:00 Pulse Ox 93 02/17/19 22:00 Results - Laboratory Findings CBC and BMP: 02/17/19 04:19 02/17/19 04:19 ABG ABG pH 7.36 pH Units (7.32-7.45) 02/17/19 08:19 ABG pCO2 55 mmHg (35-45) H 02/17/19 08:19 ABG pO2 55 mmHg (85-104) L 02/17/19 08:19 ABG O2 Saturation 86 % (95-98) L 02/17/19 08:19 PT/INR, D-dimer PT 11.6 Seconds (9.4-12.1) 02/16/19 03:54 Abnormal lab findings: Abnormal lab results WBC 11.4 K/mcL (4.3-11.1) H 02/17/19 04:19 RBC 3.45 M/mcL (3.82-4.97) L 02/17/19 04:19 Hgb 10.3 g/dL (11.5-15.4) L 02/17/19 04:19 Hct 32.4 % (35.3-44.9) L 02/17/19 04:19 RDW 14.6 % (11.5-14.5) H 02/17/19 04:19 Plt Count 469 K/mcL (140-400) H 02/15/19 03:35 MPV 9.3 fL (9.4-12.4) L 02/15/19 19:06 Neutrophils # 10.1 K/mcL (1.6-8.9) H 02/16/19 03:54 PT 12.8 Seconds (9.4-12.1) H 02/15/19 19:06 Heparin Anti-Xa, Unfract 0.28 IU/mL (0.30-0.70) L 02/14/19 19:55 ABG pH 7.30 pH Units (7.32-7.45) L 02/15/19 16:24 ABG pCO2 55 mmHg (35-45) H 02/17/19 08:19 ABG pO2 55 mmHg (85-104) L 02/17/19 08:19 ABG HCO3 31 mEq/L (21-27) H 02/17/19 08:19 ABG Total CO2 33 mEq/L (20-26) H 02/17/19 08:19 ABG O2 Saturation 86 % (95-98) L 02/17/19 08:19 ABG Base Excess 4 mEq/L (-2 to 3) H 02/17/19 08:19 ABG Hematocrit 22.0 % (35.3-44.9) L 02/15/19 17:53 ABG Chloride 96 mEq/L (98-107) L 02/15/19 17:22 Glucose 205 mg/dL (60-95) H 02/15/19 17:53 Sodium 134 mEq/L (136-145) L 02/17/19 04:19 Glucose 270 mg/dL (70-105) H 02/17/19 04:19 POC Glucose 271 mg/dL (70-99) H 02/16/19 20:45 Hemoglobin A1c 10.4 % (-5.6) H 02/14/19 17:57 Troponin I 0.59 ng/mL (< 0.04) H* 02/12/19 22:43 Triglycerides 549 mg/dL (< 150) H 02/14/19 06:37 HDL Cholesterol 28 mg/dL (40-59) L 02/14/19 06:37 Cholesterol/HDL Ratio 6.6 (0-4.9) H 02/14/19 06:37 Arterial Blood Ionized Calcium 1.00 mmol/L (1.15-1.35) L 02/15/19 17:22 Crossmatch See Detail 02/14/19 17:57 - Clinical Findings Intake & Output: Intake & Output 02/17/19 02/17/19 02/17/19 07:59 15:59 23:59 Intake Total 600 / 2310 860 / 2310 850 / 2310 Output Total 1143 / 2943 1550 / 2943 250 / 2943 Balance -543 / -633 -690 / -633 600 / -633 Weight 110.9 kg - Attending Attestation - Attending Attestation I saw and evaluated this patient and my medical decision-making was reviewed with the Resident Physician. I agree with the documented findings, disposition and treatment plan as described except to the extent set forth below. We independently had [id number] contact with the patient Patient seen and examined at bedside Labs, radiology, chart personally reviewed. Management was reviewed during multidisciplinary critical care rounds. 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 No evidence of encephalopathy Pulm: Patient has acceptable oxygenation and ventilation patient has COPD with a background of her significant hydrostatic pulmonary edema in the chest x-ray causing this V/Q mismatch ration will need aggressive bronchopulmonary toileting incentive spirometry agree with gentle diuresis patient might benefit from intermittent posterior airway pressure therapy like michaela level pressure support 02/17 patient has acceptable oxygenation and ventilation patient has significant V/Q mismatch most likely due to bibasilar atelectasis with pain from the thoracotomy is also making her diaphragm to splint encourage incentive spirometry with some pain management. To continue gentle diuresis patient is not coughing that much sputum denies any fever or chills patient does not look like currently she is in COPD exacerbation. To do aggressive bronchopulmonary toileting and incentive spirometry. Cards: Patient had myocardial infarction now supported by CABG management according to cardiothoracic. To continue preload and afterload this will help in the management of hydrostatic pulmonary edema 02/17 to do gentle diuresis as patient is likely due to diastolic dysfunction post surgery with alteration of his afterload. that is making hydrostatic pulmonary edema component worsen. FEN-GI: Advance diet as tolerated Renal: Labs and output were reviewed ID: No active consolidative opacity in the chest x-ray probe calcitonin was negative will hold off antibiotics at this moment Heme/Onc: Labs were reviewed Endo: Glucose Monitored Integ/MSK: Skin Care per routine ICU Nursing Protocol to prevent ulcers. Lines: All lines examined without evidence of infection : Dispo: stay in ICU for aggressive bronchopulmonary toileting as patient has high risk for endotracheal intubation CODE: full code
[2019-02-17] MEDS: Amiodarone Premix 360 MG/200 ML BAG IVC SCH ×2 (09:56→22:06)
--- NOTE | 2019-02-17 09:59 | Cardiothoracic Progress Note ---
Date of Encounter: 02/17/19 Time of Encounter: 09:57 - Assessment and plan (1) COPD (chronic obstructive pulmonary disease) Current Visit: Yes Status: Acute The chest tubes and pacing wires were removed. We will check a stat portable chest x-ray. We will leave the patient in the intensive care unit until the respiratory status has improved. Qualifiers: COPD type: unspecified COPD Qualified Code(s): J44.9 - Chronic obstructive pulmonary disease, unspecified - Subjective Interval history: The patient has no complaints. She is still requiring large amounts of inspired oxygen. Vital Signs, Last 4 Hours Temp Pulse Resp BP Pulse Ox 02/17/19 09:00 105 17 144/83 87 02/17/19 08:00 100 24 143/75 90 02/17/19 07:55 98.0 F 02/17/19 07:00 96 22 130/74 88 02/17/19 06:00 99 22 130/76 88 Oxgyen Flow Rate Oxygen Flow Rate (LPM) 10 Clinical Data, last 8 Hours Output, Chest Tube Drainage 10 Amount [Mediastinal #2] Output, Chest Tube Drainage 6 Amount [Mediastinal #2] Output, Chest Tube Drainage 10 Amount [Mediastinal #1] Output, Chest Tube Drainage 30 Amount [Mediastinal #1] Output, Urine Amount 350 Output, Urine Amount 450 Weight 02/15/19 02/16/19 02/17/19 23:59 23:59 23:59 Weight 109 kg 109.9 kg 110.9 kg Lungs are clear to percussion and auscultation. Heart is in a normal sinus rhythm. All incisions are healing well without signs of infection and the sternum is stable. Chest tube drainage is minimal and there is no air leak. - Labs 02/17/19 04:19 02/17/19 04:19 Lab Results, Last 24 hours 02/17/19 02/17/19 04:19 04:19 WBC 11.4 H Hgb 10.3 L Hct 32.4 L Plt Count 239 Sodium 134 L Potassium 4.6 Chloride 98 Carbon Dioxide 28 BUN 15 Creatinine 0.80 Glucose 270 H Calcium 8.9 - VTE Documentation of Mechanical Device: Graduated compression elastic hosiery Consult Discharge Plan - Plan Referrals: Neema Oropeza, FEI [Primary Care Provider] -
[2019-02-17] MEDS ORDERED: Furosemide 20 MG/2 ML VIAL IVP ONE (11:30)
[2019-02-17] MEDS: 0.9 % Sodium Chloride w KCl 20 MEQ/1,000 ML MLS IVC SCH (12:22)
[2019-02-17] MEDS: Norepinephrine 4 MG in 0.9 % Sodium Chloride 250 ML IVC SCH (15:34)
[2019-02-17] MEDS: Insulin DETEMIR 100 UNIT/ML X5UNITS SQ SCH (20:42)
[2019-02-18] MEDS: niCARdipine 20 MG/200 ML MLS IVC SCH ×3 (02:03→21:07)
[2019-02-18] MEDS: 0.9 % Sodium Chloride w KCl 20 MEQ/1,000 ML MLS IVC SCH (02:04)
[2019-02-18] MEDS: *HR* OxyCODONE/APAP 5/325 TABLET PO PRN ×5 (02:06→21:14)
[2019-02-18] MEDS: Levalbuterol Neb 1.25 MG/3 ML IH SCH ×4 (03:34→22:30)
[2019-02-18] MEDS: Nitroglycerin 25 MG/250 ML INFUS..BTL IVC SCH ×3 (04:57→23:14)
[2019-02-18] MEDS: *HR* Heparin 5,000 UNIT/ML VIAL SQ SCH ×2 (04:59→17:59)
[2019-02-18] MEDS: Metoclopramide 10 MG/2 ML VIAL IVP SCH ×4 (04:59→23:22)
[2019-02-18 05:49] LABS: BUN/Creatinine Ratio 18 (6-26); Blood Urea Nitrogen 17 mg/dL (6-20); Carbon Dioxide 28 mEq/L (23-29); Chloride 96 mEq/L (98-107); Glucose 210 mg/dL (70-105); Osmolality,Calculated 280 (280-300); Potassium 4.3 mEq/L (3.5-5.1); Sodium 131 mEq/L (136-145); eGFR For African Americans > 60 (> 60); eGFR For Non-African Americans > 60 (> 60)
[2019-02-18 06:55] LABS: Basophils % 0.3 %; Eosinophils # 0.3 K/mcL (0.0-0.6); Eosinophils % 2.4 %; Hematocrit 32.1 % (35.3-44.9); Hemoglobin 10.3 g/dL (11.5-15.4); Immature Granulocytes % 0.8 % (0-4); Lymphocytes # 1.8 K/mcL (0.6-4.6); Lymphocytes % 15.7 %; Mean Corpuscular HGB Conc 32.1 g/dL (31.6-35.5); Mean Corpuscular Hemoglobin 29.9 pg (28.0-33.3); Mean Corpuscular Volume 93.3 fL (83.0-100.0); Mean Platelet Volume 9.8 fL (9.4-12.4); Monocytes % 8.6 %; Neutrophils # 8.3 K/mcL (1.6-8.9); Platelet Count 252 K/mcL (140-400); Red Blood Count 3.44 M/mcL (3.82-4.97); Red Cell Distribution Width 14.7 % (11.5-14.5); Segmented Neutrophils % 72.2 %; White Blood Count 11.4 K/mcL (4.3-11.1)
--- NOTE | 2019-02-18 07:21 | Cardiothoracic Progress Note ---
Date of Encounter: 02/18/19 Time of Encounter: 07:18 - Assessment and plan (1) COPD (chronic obstructive pulmonary disease) Current Visit: Yes Status: Acute We will leave the patient in the intensive care unit until her pulmonary function improves. We will switch her from intravenous amiodarone 2 by mouth amiodarone. Qualifiers: COPD type: unspecified COPD Qualified Code(s): J44.9 - Chronic obstructive pulmonary disease, unspecified - Subjective Interval history: The patient has no complaints. She is still requiring large amounts of inspired oxygen. Vital Signs, Last 4 Hours Temp Pulse Resp BP Pulse Ox 02/18/19 06:00 92 12 98/49 90 02/18/19 05:00 93 18 126/78 94 02/18/19 04:00 98.5 F 86 15 108/61 93 02/18/19 03:35 13 99/49 93 Oxgyen Flow Rate Oxygen Flow Rate (LPM) 10 Clinical Data, last 8 Hours Output, Urine Amount 150 Output, Urine Amount 200 Weight 02/16/19 02/17/19 02/18/19 23:59 23:59 23:59 Weight 109.9 kg 110.9 kg Lungs are clear to percussion and auscultation. Heart is in a normal sinus rhythm. All incisions are healing well without signs of infection and the de la cruz um is stable. - Labs 02/18/19 06:35 02/18/19 05:05 Lab Results, Last 24 hours 02/18/19 02/18/19 05:05 06:35 WBC 11.4 H Hgb 10.3 L Hct 32.1 L Plt Count 252 Sodium 131 L Potassium 4.3 Chloride 96 L Carbon Dioxide 28 BUN 17 Creatinine 0.94 Glucose 210 H Calcium 9.0 - VTE Documentation of Mechanical Device: Graduated compression elastic hosiery Consult Discharge Plan - Plan Referrals: Neema Oropeza, FEI [Primary Care Provider] -
[2019-02-18] MEDS: amLODIPine 5 MG TABLET PO SCH (08:34)
[2019-02-18] MEDS: *HR* Amiodarone 200 MG TABLET PO SCH ×2 (08:34→21:15)
[2019-02-18] MEDS: Aspirin Enteric Coated 81 MG Tablet PO SCH (08:34)
[2019-02-18] MEDS: Pantoprazole 40 MG VIAL IVP SCH (08:35)
[2019-02-18] MEDS: Chlorhexidine Rinse 15 ML MOUTHWASH MM SCH ×2 (08:35→21:13)
[2019-02-18] MEDS: Gabapentin 300 MG CAPSULE PO SCH ×4 (08:35→21:14)
[2019-02-18] MEDS: Furosemide 20 MG/2 ML VIAL IVP SCH (08:37)
[2019-02-18] MEDS: Insulin LISPRO 300 UNITS/3 ML VIAL SQ SCH ×4 (08:38→21:18)
[2019-02-18] MEDS: Insulin DETEMIR 100 UNIT/ML X5UNITS SQ SCH ×2 (08:55→21:16)
[2019-02-18] MEDS ORDERED: Gabapentin 300 MG CAPSULE PO SCH (09:01)
[2019-02-18] MEDS ORDERED: predniSONE 20 MG TABLET PO ONE (09:30)
--- NOTE | 2019-02-18 09:50 | Pulmonology Progress Note ---
<Mick Peters S - Last Filed: 02/18/19 14:58> Date of Encounter: 02/18/19 Time of Encounter: 09:50 Assessment and Plan (1) COPD (chronic obstructive pulmonary disease) Current Visit: Yes Status: Acute Patient continues to have good respiratory effort, saturation is acceptable oxymask Cough significantly improved from yesterday Imaging showing continued improvement Patient remains afebrile with stable white count and red blood cell count Blood gas is not significantly changed from yesterday, expect improvement as respiration improves * Continue Lasix * Added 40 mg of oral prednisone daily * Respiratory to treat the patient with a flutter valve and continue nebs * Continue BiPAP as needed, per patient's comfort and oxygen saturation * Strongly encouraging incentive spirometer when not on BiPAP * Continue pain management to encourage adequate diaphragmatic excursion with inspiration Qualifiers: COPD type: unspecified COPD Qualified Code(s): J44.9 - Chronic obstructive pulmonary disease, unspecified Subjective Principal diagnosis: S/P CABG Interval history: Mrs. Weiner is a 53 year old female status post CABG, maze procedure on 02/15 with past history of COPD, diabetes, hypertension, peripheral artery disease. No acute events overnight, patient is feeling much better and eating [employer] for breakfast when I enter the room. She reports feeling much better, reports her pain is well controlled, and asked if we could decrease her dose of Neurontin. She states that she takes it as needed at home, usually taking 300 mg during the day, and 600 mg at night. She states that the 600 mg 3 times a day makes her feel "drunk" her oxygen saturation drops when she is off the oxygen mask, but she does not feel short of breath. Objective PUL Vital signs: Last Vital Signs Temp 98.0 F 02/18/19 07:32 Pulse 92 02/18/19 06:00 Resp 12 02/18/19 06:00 BP 98/49 02/18/19 06:00 Pulse Ox 90 02/18/19 06:00 General appearance: no acute distress Eyes: nonicteric ENT: oropharynx moist Auscultation: bilateral: rhonchi (Improved from yesterday) Cardiovascular: regular rate and rhythm (Distant heart sounds) Gastrointestinal: non-tender, non-distended, other (No bowel movements yet, not passing gas) Integumentary: normal Extremities: no cyanosis, no edema, pulses normal normal mental status, non-focal exam mood appropriate, affect normal Results - Laboratory Findings CBC and BMP: 02/18/19 06:35 02/18/19 05:05 ABG ABG pH 7.36 pH Units (7.32-7.45) 02/17/19 08:19 ABG pCO2 55 mmHg (35-45) H 02/17/19 08:19 ABG pO2 55 mmHg (85-104) L 02/17/19 08:19 ABG O2 Saturation 86 % (95-98) L 02/17/19 08:19 PT/INR, D-dimer PT 11.6 Seconds (9.4-12.1) 02/16/19 03:54 Abnormal lab findings: Abnormal lab results WBC 11.4 K/mcL (4.3-11.1) H 02/18/19 06:35 RBC 3.44 M/mcL (3.82-4.97) L 02/18/19 06:35 Hgb 10.3 g/dL (11.5-15.4) L 02/18/19 06:35 Hct 32.1 % (35.3-44.9) L 02/18/19 06:35 RDW 14.7 % (11.5-14.5) H 02/18/19 06:35 Plt Count 469 K/mcL (140-400) H 02/15/19 03:35 MPV 9.3 fL (9.4-12.4) L 02/15/19 19:06 Neutrophils # 10.1 K/mcL (1.6-8.9) H 02/16/19 03:54 PT 12.8 Seconds (9.4-12.1) H 02/15/19 19:06 Heparin Anti-Xa, Unfract 0.28 IU/mL (0.30-0.70) L 02/14/19 19:55 ABG pH 7.30 pH Units (7.32-7.45) L 02/15/19 16:24 ABG pCO2 55 mmHg (35-45) H 02/17/19 08:19 ABG pO2 55 mmHg (85-104) L 02/17/19 08:19 ABG HCO3 31 mEq/L (21-27) H 02/17/19 08:19 ABG Total CO2 33 mEq/L (20-26) H 02/17/19 08:19 ABG O2 Saturation 86 % (95-98) L 02/17/19 08:19 ABG Base Excess 4 mEq/L (-2 to 3) H 02/17/19 08:19 ABG Hematocrit 22.0 % (35.3-44.9) L 02/15/19 17:53 ABG Chloride 96 mEq/L (98-107) L 02/15/19 17:22 Glucose 205 mg/dL (60-95) H 02/15/19 17:53 Sodium 131 mEq/L (136-145) L 02/18/19 05:05 Chloride 96 mEq/L (98-107) L 02/18/19 05:05 Glucose 210 mg/dL (70-105) H 02/18/19 05:05 POC Glucose 270 mg/dL (70-99) H 02/17/19 20:05 Hemoglobin A1c 10.4 % (-5.6) H 02/14/19 17:57 Troponin I 0.59 ng/mL (< 0.04) H* 02/12/19 22:43 Triglycerides 549 mg/dL (< 150) H 02/14/19 06:37 HDL Cholesterol 28 mg/dL (40-59) L 02/14/19 06:37 Cholesterol/HDL Ratio 6.6 (0-4.9) H 02/14/19 06:37 Arterial Blood Ionized Calcium 1.00 mmol/L (1.15-1.35) L 02/15/19 17:22 Crossmatch See Detail 02/14/19 17:57 - Clinical Findings Intake & Output: Intake & Output 02/17/19 02/18/19 02/18/19 23:59 07:59 15:59 Intake Total 850 / 2310 717 / 1277 560 / 1277 Output Total 250 / 2943 350 / 650 300 / 650 Balance 600 / -633 367 / 627 260 / 627 - VTE Documentation of Mechanical Device: Graduated compression elastic hosiery Consult Discharge Plan - Plan Referrals: Neema Oropeza, [facility] [Primary Care Provider] - <Galilea Pascual - Last Filed: 02/18/19 20:00> Date of Encounter: 02/18/19 Objective PUL Vital signs: Last Vital Signs Temp 98.2 F 02/18/19 16:00 Pulse 99 02/18/19 18:00 Resp 20 02/18/19 18:00 BP 98/49 02/18/19 18:00 Pulse Ox 91 02/18/19 18:00 Results - Laboratory Findings CBC and BMP: 02/18/19 06:35 02/18/19 05:05 ABG ABG pH 7.36 pH Units (7.32-7.45) 02/17/19 08:19 ABG pCO2 55 mmHg (35-45) H 02/17/19 08:19 ABG pO2 55 mmHg (85-104) L 02/17/19 08:19 ABG O2 Saturation 86 % (95-98) L 02/17/19 08:19 PT/INR, D-dimer PT 11.6 Seconds (9.4-12.1) 02/16/19 03:54 Abnormal lab findings: Abnormal lab results WBC 11.4 K/mcL (4.3-11.1) H 02/18/19 06:35 RBC 3.44 M/mcL (3.82-4.97) L 02/18/19 06:35 Hgb 10.3 g/dL (11.5-15.4) L 02/18/19 06:35 Hct 32.1 % (35.3-44.9) L 02/18/19 06:35 RDW 14.7 % (11.5-14.5) H 02/18/19 06:35 Plt Count 469 K/mcL (140-400) H 02/15/19 03:35 MPV 9.3 fL (9.4-12.4) L 02/15/19 19:06 Neutrophils # 10.1 K/mcL (1.6-8.9) H 02/16/19 03:54 PT 12.8 Seconds (9.4-12.1) H 02/15/19 19:06 Heparin Anti-Xa, Unfract 0.28 IU/mL (0.30-0.70) L 02/14/19 19:55 ABG pH 7.30 pH Units (7.32-7.45) L 02/15/19 16:24 ABG pCO2 55 mmHg (35-45) H 02/17/19 08:19 ABG pO2 55 mmHg (85-104) L 02/17/19 08:19 ABG HCO3 31 mEq/L (21-27) H 02/17/19 08:19 ABG Total CO2 33 mEq/L (20-26) H 02/17/19 08:19 ABG O2 Saturation 86 % (95-98) L 02/17/19 08:19 ABG Base Excess 4 mEq/L (-2 to 3) H 02/17/19 08:19 ABG Hematocrit 22.0 % (35.3-44.9) L 02/15/19 17:53 ABG Chloride 96 mEq/L (98-107) L 02/15/19 17:22 Glucose 205 mg/dL (60-95) H 02/15/19 17:53 Sodium 131 mEq/L (136-145) L 02/18/19 05:05 Chloride 96 mEq/L (98-107) L 02/18/19 05:05 Glucose 210 mg/dL (70-105) H 02/18/19 05:05 POC Glucose 270 mg/dL (70-99) H 02/17/19 20:05 Hemoglobin A1c 10.4 % (-5.6) H 02/14/19 17:57 Troponin I 0.59 ng/mL (< 0.04) H* 02/12/19 22:43 Triglycerides 549 mg/dL (< 150) H 02/14/19 06:37 HDL Cholesterol 28 mg/dL (40-59) L 02/14/19 06:37 Cholesterol/HDL Ratio 6.6 (0-4.9) H 02/14/19 06:37 Arterial Blood Ionized Calcium 1.00 mmol/L (1.15-1.35) L 02/15/19 17:22 Crossmatch See Detail 02/14/19 17:57 - Clinical Findings Intake & Output: Intake & Output 02/18/19 02/18/19 02/18/19 07:59 15:59 23:59 Intake Total 717 / 2237 920 / 2237 600 / 2237 Output Total 350 / 650 300 / 650 Balance 367 / 1587 620 / 1587 600 / 1587 - Attending Attestation Attending Attestation I saw and evaluated this patient and my medical decision-making was reviewed with the Resident Physician. I agree with the documented findings, disposition and treatment plan as described except to the extent set forth below. We independently had [id number] contact with the patient Patient seen and examined at bedside Labs, radiology, chart personally reviewed. Management was reviewed during multidisciplinary critical care rounds. 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 No evidence of encephalopathy Pulm: Patient has acceptable oxygenation and ventilation patient has COPD with a background of her significant hydrostatic pulmonary edema in the chest x-ray causing this V/Q mismatch ration will need aggressive bronchopulmonary toileting incentive spirometry agree with gentle diuresis patient might benefit from intermittent posterior airway pressure therapy like michaela level pressure support 02/17 patient has acceptable oxygenation and ventilation patient has significant V/Q mismatch most likely due to bibasilar atelectasis with pain from the thoracotomy is also making her diaphragm to splint encourage incentive spirometry with some pain management. To continue gentle diuresis patient is not coughing that much sputum denies any fever or chills patient does not look like currently she is in COPD exacerbation. To do aggressive bronchopulmonary toileting and incentive spirometry. 02/18 patient has acceptable oxygenation and ventilation to increase bronchopulmonary toileting and incentive spirometry patient has increased rhonchi will start on oral prednisone therapy Cards: Patient had myocardial infarction now supported by CABG management according to cardiothoracic. To continue preload and afterload this will help in the management of hydrostatic pulmonary edema 02/17 to do gentle diuresis as patient is likely due to diastolic dysfunction post surgery with alteration of his afterload. that is making hydrostatic pulmonary edema component worsen. 02/18 to continue diuresis as tolerated FEN-GI: Advance diet as tolerated Renal: Labs and output were reviewed ID: No active consolidative opacity in the chest x-ray probe calcitonin was negative will hold off antibiotics at this moment Heme/Onc: Labs were reviewed Endo: Glucose Monitored Integ/MSK: Skin Care per routine ICU Nursing Protocol to prevent ulcers. Lines: All lines examined without evidence of infection : Dispo: stay in ICU for aggressive bronchopulmonary toileting as patient has high risk for endotracheal intubation CODE: full code
[2019-02-18] MEDS ORDERED: Furosemide 20 MG TABLET PO SCH (11:30)
[2019-02-18] MEDS: Norepinephrine 4 MG in 0.9 % Sodium Chloride 250 ML IVC SCH (20:32)
[2019-02-19] MEDS: *HR* OxyCODONE/APAP 5/325 TABLET PO PRN ×6 (01:17→23:54)
[2019-02-19] MEDS: Levalbuterol Neb 1.25 MG/3 ML IH SCH ×4 (03:38→23:00)
[2019-02-19] MEDS: Nitroglycerin 25 MG/250 ML INFUS..BTL IVC SCH (05:25)
[2019-02-19] MEDS: *HR* Heparin 5,000 UNIT/ML VIAL SQ SCH ×2 (06:24→17:36)
--- NOTE | 2019-02-19 07:26 | Pulmonology Progress Note ---
<Scotty Bonds - Last Filed: 02/19/19 13:21> Date of Encounter: 02/19/19 Time of Encounter: 07:26 Assessment and Plan (1) COPD (chronic obstructive pulmonary disease) Current Visit: Yes Status: Acute COPD - Improved respiratory effort. Saturating well and breathing comfortably on 3L via nasal cannula - Cough improved - Reports using incentive spirometer consistently - Recieved one dose of prednisone 40 yesterday Plan: - Xopenex q6h - Lasix has been stopped - Oxycodone for pain management Qualifiers: COPD type: unspecified COPD Qualified Code(s): J44.9 - Chronic obstructive pulmonary disease, unspecified (2) NSTEMI (non-ST elevated myocardial infarction) Current Visit: Yes Status: Acute NSTEMI - S/P CABG - Normal sinus rhytm - Continue amio, novasc, Lipitor, cozaar, ASA (3) S/P CABG x 3 Current Visit: Yes Status: Acute CABG - CABG x3 on 02/15/19 - Recovering well - Some pain in the morning at incision site - Managed by CT surgery (4) HTN (hypertension) Current Visit: No Status: Chronic Hx of HTN, medication as above Qualifiers: Hypertension type: essential hypertension Qualified Code(s): I10 - Essent ial (primary) hypertension (5) Peripheral arterial disease Current Visit: No Status: Chronic Hx of Peripheral arterial disease. - Medical management as above Subjective Principal diagnosis: S/P CABG Interval history: Patient seen in room. Afebrile. No overnight events. Breathing comfortably on nasal cannula. Sitting in chair next to bed. Denies headaches, fever, shortness of breath, constipation, diarrhea. Patient bowel movement and his says that is normal for her and is now reporting any discomfort. No change in urination. Objective PUL Vital signs: Last Vital Signs Temp 98.2 F 02/19/19 04:00 Pulse 94 02/19/19 06:00 Resp 16 02/19/19 06:00 BP 130/65 02/19/19 06:00 Pulse Ox 93 02/19/19 06:00 Gen: Vitals noted. No acute distress. Sitting in chair next to bed Eyes: anicteric sclerae, moist conjunctivae. Pupils equal and reactive to light HENT: Atraumatic, normocephalic; oropharynx clear with moist mucous membranes and no mucosal ulcerations Neck: Trachea midline; supple Cardiac: RRR, no murmurs, rubs or gallops, S1/S2. Distant heart sounds. Pulmonary: Carse Breath sounds BL. Mild wheezing Abdomen: soft, nontender, no rigidity or guarding. No masses or hepatosplenomeg nettie MSK: ROM intact, no joint swelling noted Extremities: no BLE edema, nontender calf, no cyanosis or clubbing Skin: Normal temperature, turgor and texture; no rash, ulcers or subcutaneous nodules Neuro: moves all extremities, no focal deficits. Psych: Appropriate mood and behavior. A&Ox3 Results - Laboratory Findings CBC and BMP: 02/18/19 06:35 02/18/19 05:05 ABG ABG pH 7.36 pH Units (7.32-7.45) 02/17/19 08:19 ABG pCO2 55 mmHg (35-45) H 02/17/19 08:19 ABG pO2 55 mmHg (85-104) L 02/17/19 08:19 ABG O2 Saturation 86 % (95-98) L 02/17/19 08:19 PT/INR, D-dimer PT 11.6 Seconds (9.4-12.1) 02/16/19 03:54 Abnormal lab findings: Abnormal lab results WBC 11.4 K/mcL (4.3-11.1) H 02/18/19 06:35 RBC 3.44 M/mcL (3.82-4.97) L 02/18/19 06:35 Hgb 10.3 g/dL (11.5-15.4) L 02/18/19 06:35 Hct 32.1 % (35.3-44.9) L 02/18/19 06:35 RDW 14.7 % (11.5-14.5) H 02/18/19 06:35 Plt Count 469 K/mcL (140-400) H 02/15/19 03:35 MPV 9.3 fL (9.4-12.4) L 02/15/19 19:06 Neutrophils # 10.1 K/mcL (1.6-8.9) H 02/16/19 03:54 PT 12.8 Seconds (9.4-12.1) H 02/15/19 19:06 Heparin Anti-Xa, Unfract 0.28 IU/mL (0.30-0.70) L 02/14/19 19:55 ABG pH 7.30 pH Units (7.32-7.45) L 02/15/19 16:24 ABG pCO2 55 mmHg (35-45) H 02/17/19 08:19 ABG pO2 55 mmHg (85-104) L 02/17/19 08:19 ABG HCO3 31 mEq/L (21-27) H 02/17/19 08:19 ABG Total CO2 33 mEq/L (20-26) H 02/17/19 08:19 ABG O2 Saturation 86 % (95-98) L 02/17/19 08:19 ABG Base Excess 4 mEq/L (-2 to 3) H 02/17/19 08:19 ABG Hematocrit 22.0 % (35.3-44.9) L 02/15/19 17:53 ABG Chloride 96 mEq/L (98-107) L 02/15/19 17:22 Glucose 205 mg/dL (60-95) H 02/15/19 17:53 Sodium 131 mEq/L (136-145) L 02/18/19 05:05 Chloride 96 mEq/L (98-107) L 02/18/19 05:05 Glucose 210 mg/dL (70-105) H 02/18/19 05:05 POC Glucose 250 mg/dL (70-99) H 02/18/19 23:33 Hemoglobin A1c 10.4 % (-5.6) H 02/14/19 17:57 Troponin I 0.59 ng/mL (< 0.04) H* 02/12/19 22:43 Triglycerides 549 mg/dL (< 150) H 02/14/19 06:37 HDL Cholesterol 28 mg/dL (40-59) L 02/14/19 06:37 Cholesterol/HDL Ratio 6.6 (0-4.9) H 02/14/19 06:37 Arterial Blood Ionized Calcium 1.00 mmol/L (1.15-1.35) L 02/15/19 17:22 Crossmatch See Detail 02/14/19 17:57 - Clinical Findings Intake & Output: Intake & Output 09/27/19 09/27/19 09/28/19 15:59 23:59 07:59 Intake Total 920 / 2237 600 / 2237 Output Total 300 / 1050 400 / 1050 700 / 700 Balance 620 / 1187 200 / 1187 -700 / -700 - VTE Documentation of Mechanical Device: Graduated compression elastic hosiery Consult Discharge Plan - Plan Referrals: Neema Oropeza, [facility] [Primary Care Provider] - <Galilea Pascual - Last Filed: 02/19/19 21:40> Date of Encounter: 02/19/19 Objective PUL Vital signs: Last Vital Signs Temp 98.5 F 02/19/19 19:41 Pulse 102 02/19/19 21:00 Resp 17 02/19/19 21:00 BP 154/73 02/19/19 20:00 Pulse Ox 91 02/19/19 21:00 Results - Laboratory Findings CBC and BMP: 02/18/19 06:35 02/18/19 05:05 ABG ABG pH 7.36 pH Units (7.32-7.45) 02/17/19 08:19 ABG pCO2 55 mmHg (35-45) H 02/17/19 08:19 ABG pO2 55 mmHg (85-104) L 02/17/19 08:19 ABG O2 Saturation 86 % (95-98) L 02/17/19 08:19 PT/INR, D-dimer PT 11.6 Seconds (9.4-12.1) 02/16/19 03:54 Abnormal lab findings: Abnormal lab results WBC 11.4 K/mcL (4.3-11.1) H 02/18/19 06:35 RBC 3.44 M/mcL (3.82-4.97) L 02/18/19 06:35 Hgb 10.3 g/dL (11.5-15.4) L 02/18/19 06:35 Hct 32.1 % (35.3-44.9) L 02/18/19 06:35 RDW 14.7 % (11.5-14.5) H 02/18/19 06:35 Plt Count 469 K/mcL (140-400) H 02/15/19 03:35 MPV 9.3 fL (9.4-12.4) L 02/15/19 19:06 Neutrophils # 10.1 K/mcL (1.6-8.9) H 02/16/19 03:54 PT 12.8 Seconds (9.4-12.1) H 02/15/19 19:06 Heparin Anti-Xa, Unfract 0.28 IU/mL (0.30-0.70) L 02/14/19 19:55 ABG pH 7.30 pH Units (7.32-7.45) L 02/15/19 16:24 ABG pCO2 55 mmHg (35-45) H 02/17/19 08:19 ABG pO2 55 mmHg (85-104) L 02/17/19 08:19 ABG HCO3 31 mEq/L (21-27) H 02/17/19 08:19 ABG Total CO2 33 mEq/L (20-26) H 02/17/19 08:19 ABG O2 Saturation 86 % (95-98) L 02/17/19 08:19 ABG Base Excess 4 mEq/L (-2 to 3) H 02/17/19 08:19 ABG Hematocrit 22.0 % (35.3-44.9) L 02/15/19 17:53 ABG Chloride 96 mEq/L (98-107) L 02/15/19 17:22 Glucose 205 mg/dL (60-95) H 02/15/19 17:53 Sodium 131 mEq/L (136-145) L 02/18/19 05:05 Chloride 96 mEq/L (98-107) L 02/18/19 05:05 Glucose 210 mg/dL (70-105) H 02/18/19 05:05 POC Glucose 250 mg/dL (70-99) H 02/18/19 23:33 Hemoglobin A1c 10.4 % (-5.6) H 02/14/19 17:57 Troponin I 0.59 ng/mL (< 0.04) H* 02/12/19 22:43 Triglycerides 549 mg/dL (< 150) H 02/14/19 06:37 HDL Cholesterol 28 mg/dL (40-59) L 02/14/19 06:37 Cholesterol/HDL Ratio 6.6 (0-4.9) H 02/14/19 06:37 Arterial Blood Ionized Calcium 1.00 mmol/L (1.15-1.35) L 02/15/19 17:22 Crossmatch See Detail 02/14/19 17:57 - Clinical Findings Intake & Output: Intake & Output 02/19/19 02/19/19 02/19/19 07:59 15:59 23:59 Intake Total 710 / 1070 360 / 1070 Output Total 700 / 1200 500 / 1200 Balance -700 / -130 210 / -130 360 / -130 - Attending Attestation Attending Attestation I saw and evaluated this patient and my medical decision-making was reviewed with the Resident Physician. I agree with the documented findings, disposition a nd treatment plan as described except to the extent set forth below. We independently had [id number] contact with the patient Patient seen and examined at bedside Labs, radiology, chart personally reviewed. Management was reviewed during multidisciplinary critical care rounds. 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 No evidence of encephalopathy. Pulm: Patient has acceptable oxygenation and ventilation patient has COPD with a background of her significant hydrostatic pulmonary edema in the chest x-ray causing this V/Q mismatch ration will need aggressive bronchopulmonary toileting incentive spirometry agree with gentle diuresis patient might benefit from intermittent posterior airway pressure therapy like michaela level pressure support 02/17 patient has acceptable oxygenation and ventilation patient has significant V/Q mismatch most likely due to bibasilar atelectasis with pain from the thoracotomy is also making her diaphragm to splint encourage incentive spir ometry with some pain management. To continue gentle diuresis patient is not coughing that much sputum denies any fever or chills patient does not look like currently she is in COPD exacerbation. To do aggressive bronchopulmonary toileting and incentive spirometry. 02/18 patient has acceptable oxygenation and ventilation to increase bronchopulmonary toileting and incentive spirometry patient has increased rhonchi will start on oral prednisone therapy. 02/19 patient has acceptable oxygenation and ventilation patient is requiring aggressive FiO2 than yesterday lung examination is lot better less rhonchi patient is responding well to steroids to continue incentive spirometry bronchopulmonary toileting. Patient will need outpatient evaluation for COPD. Cards: Patient had myocardial infarction now supported by CABG management according to cardiothoracic. To continue preload and afterload this will help in the management of hydrostatic pulmonary edema 02/17 to do gentle diuresis as patient is likely due to diastolic dysfunction post surgery with alteration of his afterload. that is making hydrostatic pulmonary edema component worsen. 02/18 to continue diuresis as tolerated 02/19 patient is hemodynamically stable supported by CABG FEN-GI: Patient is taking regular cardiac diet. Renal: Labs and output were reviewed ID: No active infectious disease issues Heme/Onc: Labs were reviewed. Endo: Glucose Monitored Integ/MSK: Skin Care per routine ICU Nursing Protocol to prevent ulcers. Lines: All lines examined without evidence of infection : Dispo: according to cardiothoracic surgery patient can be transferred to the floor CODE: full code
[2019-02-19] MEDS: Pantoprazole 40 MG VIAL IVP SCH (07:49)
[2019-02-19] MEDS: Aspirin Enteric Coated 81 MG Tablet PO SCH (07:49)
[2019-02-19] MEDS: Chlorhexidine Rinse 15 ML MOUTHWASH MM SCH ×2 (07:49→21:25)
[2019-02-19] MEDS: Gabapentin 300 MG CAPSULE PO SCH ×8 (07:50→23:10)
[2019-02-19] MEDS: *HR* Amiodarone 200 MG TABLET PO SCH ×2 (07:50→21:25)
[2019-02-19] MEDS: amLODIPine 5 MG TABLET PO SCH (07:50)
[2019-02-19] MEDS: Insulin LISPRO 300 UNITS/3 ML VIAL SQ SCH ×4 (07:54→21:25)
[2019-02-19] MEDS: Insulin DETEMIR 100 UNIT/ML X5UNITS SQ SCH ×2 (07:54→21:29)
--- NOTE | 2019-02-19 08:50 | Cardiothoracic Progress Note ---
Date of Encounter: 02/19/19 Time of Encounter: 08:48 - Assessment and plan (1) COPD (chronic obstructive pulmonary disease) Current Visit: Yes Status: Acute We will transfer the patient to the floor. Qualifiers: COPD type: unspecified COPD Qualified Code(s): J44.9 - Chronic obstructive pulmonary disease, unspecified - Subjective Interval history: The patient has no complaints. She is requiring much less inspired oxygen. Vital Signs, Last 4 Hours Temp Pulse Resp BP Pulse Ox 02/19/19 08:00 95 14 147/76 94 02/19/19 07:42 98.5 F 02/19/19 07:00 96 20 149/86 94 02/19/19 06:00 94 16 130/65 93 02/19/19 05:00 89 16 127/60 94 Oxgyen Flow Rate Oxygen Flow Rate (LPM) 3 Clinical Data, last 8 Hours Output, Urine Amount 200 Output, Urine Amount 400 Output, Urine Amount 300 Weight 02/17/19 02/18/19 02/19/19 23:59 23:59 23:59 Weight 110.9 kg Lungs are clear to percussion and auscultation. Heart is in a normal sinus rhythm. All incisions are healing well without signs of infection and the sternum is stable. - Labs 02/18/19 06:35 02/18/19 05:05 - VTE Documentation of Mechanical Device: Graduated compression elastic hosiery Consult Discharge Plan - Plan Referrals: Neema Oropeza, FEI [Primary Care Provider] -
[2019-02-19] MEDS ORDERED: Acetaminophen 325 MG TABLET PO PRN (09:18)
[2019-02-19] MEDS ORDERED: *HR* Dextrose 50 % in Water (Syg) 50 ML SYRINGE IVP PRN (09:18)
[2019-02-19] MEDS ORDERED: Naloxone 0.4 MG/ML INJ IVP PRN (09:18)
[2019-02-19] MEDS ORDERED: Dextrose Gel 15 GM/37.5 ML TUBE PO PRN ×2 (09:18)
[2019-02-19] MEDS ORDERED: D5% in Water 1,000 ML IVC PRN (09:18)
[2019-02-19] MEDS ORDERED: Ondansetron 4 MG/2 ML VIAL IVP PRN (09:18)
[2019-02-19] MEDS ORDERED: Levalbuterol Neb 1.25 MG/3 ML ONE (09:42)
[2019-02-19] MEDS: niCARdipine 20 MG/200 ML MLS IVC SCH (19:22)
[2019-02-19] MEDS: *HR* LORazepam 0.5 MG TABLET PO PRN (21:26)
[2019-02-20] MEDS: *HR* LORazepam 0.5 MG TABLET PO PRN ×5 (02:48→20:43)
[2019-02-20] MEDS: Levalbuterol Neb 1.25 MG/3 ML IH SCH ×4 (03:58→22:38)
[2019-02-20] MEDS: *HR* OxyCODONE/APAP 5/325 TABLET PO PRN ×4 (06:13→20:43)
[2019-02-20] MEDS: *HR* Heparin 5,000 UNIT/ML VIAL SQ SCH ×2 (06:16→16:38)
--- NOTE | 2019-02-20 07:18 | Pulmonology Progress Note ---
<Scotty Bonds Celsa - Last Filed: 02/20/19 08:36> Date of Encounter: 02/20/19 Time of Encounter: 07:17 Assessment and Plan (1) COPD (chronic obstructive pulmonary disease) Current Visit: Yes Status: Acute COPD - Improved respiratory effort. Saturating well and breathing comfortably on 3L via nasal cannula - Cough improved - Reports using incentive spirometer consistently - Recieved one dose of prednisone 40 02/18/19 Plan: - Xopenex q6h - Oxycodone for pain management Qualifiers: COPD type: unspecified COPD Qualified Code(s): J44.9 - Chronic obstructive pulmonary disease, unspecified (2) NSTEMI (non-ST elevated myocardial infarction) Current Visit: Yes Status: Inactive NSTEMI - S/P CABG - Normal sinus rhytm - Continue amio, novasc, Lipitor, cozaar, ASA (3) S/P CABG x 3 Current Visit: Yes Status: Acute CABG - CABG x3 on 02/15/19 - Recovering well - Some pain in the morning at incision site - Managed by CT surgery (4) HTN (hypertension) Current Visit: No Status: Chronic Hx of HTN, medication as above Qualifiers: Hypertension type: essential hypertension Qualified Code(s): I10 - Essential (primary) hypertension (5) Peripheral arterial disease Current Visit: No Status: Chronic Hx of Peripheral arterial disease. - Medical management as above Subjective Principal diagnosis: S/P CABG Interval history: Patient seen and examined. No regular meds. She has trouble sleeping because that is uncomfortable, and some tenderness at surgical site. Denies chest pain shortness of breath, headache, constipation, diarrhea. Plan to move to the floor today. Madelin White is a 53-year-old female with a past medical history of diabetes, hypertension, peripheral arterial disease. She originally present to [facility] as a transfer from [facility] for further management of chest pain. In the ED she was found to have elevated troponins of 0.22 without significant EKG changes. She started on heparin drip. She was found to have severe triple-vessel disease on cardiac catheterization. And was scheduled for a CABG with CT surgery. CABG was performed on 02/15/19. Afterward, she was transferred to the ICU for postop recovery for poor respiratory status. She is treated with diuresis and aggressive pulmonary toileting, she recovered well and on is ready to be transferred out of the ICU. Objective PUL Vital signs: Last Vital Signs Temp 98.0 F 02/20/19 06:58 Pulse 86 02/20/19 05:00 Resp 16 02/20/19 05:00 BP 123/66 02/20/19 05:00 Pulse Ox 93 02/20/19 05:00 Gen: Vitals noted. No acute distress. Sitting in chair next to bed Eyes: anicteric sclerae, moist conjunctivae. HENT: Atraumatic, normocephalic; oropharynx clear with moist mucous membranes and no mucosal ulcerations Cardiac: RRR, no BL LE edema Pulmonary: Non-labored breathing, no cugh or sputum production Abdomen: soft, nontender, no rigidity or guarding. No masses or hepatosplenomegaly MSK: ROM intact, no joint swelling noted Extremities: no BLE edema, nontender calf, no cyanosis or clubbing Skin: Normal temperature, turgor and texture; no rash, ulcers or subcutaneous nodules Neuro: moves all extremities, no focal deficits. Psych: Appropriate mood and behavior. A&Ox3 Results - Laboratory Findings CBC and BMP: 02/18/19 06:35 02/18/19 05:05 ABG ABG pH 7.36 pH Units (7.32-7.45) 02/17/19 08:19 ABG pCO2 55 mmHg (35-45) H 02/17/19 08:19 ABG pO2 55 mmHg (85-104) L 02/17/19 08:19 ABG O2 Saturation 86 % (95-98) L 02/17/19 08:19 PT/INR, D-dimer PT 11.6 Seconds (9.4-12.1) 02/16/19 03:54 Abnormal lab findings: Abnormal lab results WBC 11.4 K/mcL (4.3-11.1) H 02/18/19 06:35 RBC 3.44 M/mcL (3.82-4.97) L 02/18/19 06:35 Hgb 10.3 g/dL (11.5-15.4) L 02/18/19 06:35 Hct 32.1 % (35.3-44.9) L 02/18/19 06:35 RDW 14.7 % (11.5-14.5) H 02/18/19 06:35 Plt Count 469 K/mcL (140-400) H 02/15/19 03:35 MPV 9.3 fL (9.4-12.4) L 02/15/19 19:06 Neutrophils # 10.1 K/mcL (1.6-8.9) H 02/16/19 03:54 PT 12.8 Seconds (9.4-12.1) H 02/15/19 19:06 Heparin Anti-Xa, Unfract 0.28 IU/mL (0.30-0.70) L 02/14/19 19:55 ABG pH 7.30 pH Units (7.32-7.45) L 02/15/19 16:24 ABG pCO2 55 mmHg (35-45) H 02/17/19 08:19 ABG pO2 55 mmHg (85-104) L 02/17/19 08:19 ABG HCO3 31 mEq/L (21-27) H 02/17/19 08:19 ABG Total CO2 33 mEq/L (20-26) H 02/17/19 08:19 ABG O2 Saturation 86 % (95-98) L 02/17/19 08:19 ABG Base Excess 4 mEq/L (-2 to 3) H 02/17/19 08:19 ABG Hematocrit 22.0 % (35.3-44.9) L 02/15/19 17:53 ABG Chloride 96 mEq/L (98-107) L 02/15/19 17:22 Glucose 205 mg/dL (60-95) H 02/15/19 17:53 Sodium 131 mEq/L (136-145) L 02/18/19 05:05 Chloride 96 mEq/L (98-107) L 02/18/19 05:05 Glucose 210 mg/dL (70-105) H 02/18/19 05:05 POC Glucose 244 mg/dL (70-99) H 02/19/19 19:26 Hemoglobin A1c 10.4 % (-5.6) H 02/14/19 17:57 Troponin I 0.59 ng/mL (< 0.04) H* 02/12/19 22:43 Triglycerides 549 mg/dL (< 150) H 02/14/19 06:37 HDL Cholesterol 28 mg/dL (40-59) L 02/14/19 06:37 Cholesterol/HDL Ratio 6.6 (0-4.9) H 02/14/19 06:37 Arterial Blood Ionized Calcium 1.00 mmol/L (1.15-1.35) L 02/15/19 17:22 Crossmatch See Detail 02/14/19 17:57 - Clinical Findings Intake & Output: Intake & Output 02/19/19 02/19/19 02/20/19 15:59 23:59 07:59 Intake Total 710 / 1170 460 / 1170 360 / 360 Output Total 500 / 1200 350 / 350 Balance 210 / -30 460 / -30 10 Weight 114.3 kg - VTE Documentation of Mechanical Device: Graduated compression elastic hosiery Consult Discharge Plan - Plan Referrals: Neema Oropeza CNP [Primary Care Provider] - <Galilea Pascual - Last Filed: 02/20/19 21:33> Date of Encounter: 02/20/19 Objective PUL Vital signs: Last Vital Signs Temp 98.3 F 02/20/19 19:53 Pulse 95 02/20/19 20:00 Resp 20 02/20/19 20:00 BP 144/70 02/20/19 20:00 Pulse Ox 95 02/20/19 20:00 Results - Laboratory Findings CBC and BMP: 02/20/19 09:06 02/20/19 09:06 ABG ABG pH 7.36 pH Units (7.32-7.45) 02/17/19 08:19 ABG pCO2 55 mmHg (35-45) H 02/17/19 08:19 ABG pO2 55 mmHg (85-104) L 02/17/19 08:19 ABG O2 Saturation 86 % (95-98) L 02/17/19 08:19 PT/INR, D-dimer PT 11.6 Seconds (9.4-12.1) 02/16/19 03:54 Abnormal lab findings: Abnormal lab results WBC 11.4 K/mcL (4.3-11.1) H 02/18/19 06:35 RBC 3.38 M/mcL (3.82-4.97) L 02/20/19 09:06 Hgb 10.1 g/dL (11.5-15.4) L 02/20/19 09:06 Hct 31.3 % (35.3-44.9) L 02/20/19 09:06 RDW 14.7 % (11.5-14.5) H 02/18/19 06:35 Plt Count 421 K/mcL (140-400) H D 02/20/19 09:06 MPV 9.3 fL (9.4-12.4) L 02/15/19 19:06 Neutrophils # 10.1 K/mcL (1.6-8.9) H 02/16/19 03:54 Platelet Estimate Slight increase (Normal) H 02/20/19 09:06 PT 12.8 Seconds (9.4-12.1) H 02/15/19 19:06 Heparin Anti-Xa, Unfract 0.28 IU/mL (0.30-0.70) L 02/14/19 19:55 ABG pH 7.30 pH Units (7.32-7.45) L 02/15/19 16:24 ABG pCO2 55 mmHg (35-45) H 02/17/19 08:19 ABG pO2 55 mmHg (85-104) L 02/17/19 08:19 ABG HCO3 31 mEq/L (21-27) H 02/17/19 08:19 ABG Total CO2 33 mEq/L (20-26) H 02/17/19 08:19 ABG O2 Saturation 86 % (95-98) L 02/17/19 08:19 ABG Base Excess 4 mEq/L (-2 to 3) H 02/17/19 08:19 ABG Hematocrit 22.0 % (35.3-44.9) L 02/15/19 17:53 ABG Chloride 96 mEq/L (98-107) L 02/15/19 17:22 Glucose 205 mg/dL (60-95) H 02/15/19 17:53 Sodium 132 mEq/L (136-145) L 02/20/19 09:06 Chloride 96 mEq/L (98-107) L 02/18/19 05:05 Carbon Dioxide 33 mEq/L (23-29) H 02/20/19 09:06 Glucose 207 mg/dL (70-105) H 02/20/19 09:06 POC Glucose 244 mg/dL (70-99) H 02/19/19 19:26 Hemoglobin A1c 10.4 % (-5.6) H 02/14/19 17:57 Troponin I 0.59 ng/mL (< 0.04) H* 02/12/19 22:43 Triglycerides 549 mg/dL (< 150) H 02/14/19 06:37 HDL Cholesterol 28 mg/dL (40-59) L 02/14/19 06:37 Cholesterol/HDL Ratio 6.6 (0-4.9) H 02/14/19 06:37 Arterial Blood Ionized Calcium 1.00 mmol/L (1.15-1.35) L 02/15/19 17:22 Crossmatch See Detail 02/14/19 17:57 - Clinical Findings Intake & Output: Intake & Output 02/20/19 02/20/19 02/20/19 07:59 15:59 23:59 Intake Total 360 / 1320 720 / 1320 240 / 1320 Output Total 350 / 1300 700 / 1300 250 / 1300 Balance - Weight 114.3 kg - Attending Attestation Attending Attestation I saw and evaluated this patient and my medical decision-making was reviewed with the Resident Physician. I agree with the documented findings, disposition and treatment plan as described except to the extent set forth below. We i ndependently had [id number] contact with the patient Patient seen and examined at bedside Labs, radiology, chart personally reviewed. Management was reviewed during multidisciplinary critical care rounds. 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 No evidence of encephalopathy. Pulm: Patient has acceptable oxygenation and ventilation patient has COPD with a background of her significant hydrostatic pulmonary edema in the chest x-ray causing this V/Q mismatch ration will need aggressive bronchopulmonary toileting incentive spirometry agree with gentle diuresis patient might benefit from intermittent posterior airway pressure therapy like michaela level pressure support 02/17 patient has acceptable oxygenation and ventilation patient has significant V/Q mismatch most likely due to bibasilar atelectasis with pain from the thoracotomy is also making her diaphragm to splint encourage incentive spirometry with some pain management. To continue gentle diuresis patient is not coughing that much sputum denies any fever or chills patient does not look like currently she is in COPD exacerbation. To do aggressive bronchopulmonary toileting and incentive spirometry. 02/18 patient has acceptable oxygenation and ventilation to increase bronchopulmonary toileting and incentive spirometry patient has increased rhonchi will start on oral prednisone therapy. 02/19 patient has acceptable oxygenation and ventilation patient is requiring aggressive FiO2 than yesterday lung examination is lot better less rhonchi patient is responding well to steroids to continue incentive spirometry bronchopulmonary toileting. Patient will need outpatient evaluation for COPD. 02/20 patient is on doing well to continue incentive spirometry at home and bronchopulmonary toileting will follow-up her as an outpatient. Pulmonary we will sign off for now Cards: Patient had myocardial infarction now supported by CABG management according to cardiothoracic. To continue preload and afterload this will help in the management of hydrostatic pulmonary edema 02/17 to do gentle diuresis as patient is likely due to diastolic dysfunction post surgery with alteration of his afterload. that is making hydrostatic pulmonary edema component worsen. 02/18 to continue diuresis as tolerated 02/19 patient is hemodynamically stable supported by CABG 02/20 patient is hemodynamically stable diuresis needed according to primary team Pulmonary we will sign off will follow-up as an outpatient. ICU team called report to the hospitalist.
[2019-02-20] MEDS: Chlorhexidine Rinse 15 ML MOUTHWASH MM SCH ×2 (08:00→20:07)
[2019-02-20] MEDS: Insulin DETEMIR 100 UNIT/ML X5UNITS SQ SCH ×2 (08:00→20:07)
[2019-02-20] MEDS: Aspirin Enteric Coated 81 MG Tablet PO SCH (08:00)
[2019-02-20] MEDS: Pantoprazole 40 MG VIAL IVP SCH (08:00)
[2019-02-20] MEDS: *HR* Amiodarone 200 MG TABLET PO SCH ×2 (08:01→20:07)
[2019-02-20] MEDS: amLODIPine 5 MG TABLET PO SCH (08:01)
[2019-02-20] MEDS: Insulin LISPRO 300 UNITS/3 ML VIAL SQ SCH ×4 (08:02→20:08)
[2019-02-20] MEDS: Gabapentin 300 MG CAPSULE PO SCH ×3 (08:43→20:08)
--- NOTE | 2019-02-20 09:04 | Cardiothoracic Progress Note ---
Date of Encounter: 02/20/19 Time of Encounter: 09:02 - Assessment and plan (1) COPD (chronic obstructive pulmonary disease) Current Visit: Yes Status: Acute Transfer orders have been written. She will be transferred to the floor when a bed becomes available. The patient is anxious to be discharged and may be able to go home tomorrow. Qualifiers: COPD type: unspecified COPD Qualified Code(s): J44.9 - Chronic obstructive pulmonary disease, unspecified - Subjective Interval history: The patient has no complaints. She is sitting in a chair and is on room air. Vital Signs, Last 4 Hours Temp Pulse Resp BP Pulse Ox 02/20/19 08:00 95 16 123/85 95 02/20/19 06:58 98.0 F Oxgyen Flow Rate Oxygen Flow Rate (LPM) 2 Weight 02/18/19 02/19/19 02/20/19 23:59 23:59 23:59 Weight 114.3 kg Lungs are clear to percussion and auscultation. Heart is in a normal sinus rhythm. All incisions are healing well without signs of infection and the sternum is stable. - Labs 02/18/19 06:35 02/18/19 05:05 - VTE Documentation of Mechanical Device: Graduated compression elastic hosiery Consult Discharge Plan - Plan Referrals: Neema Oropeza CNP [Primary Care Provider] -
[2019-02-20 09:17] LABS: Hematocrit 31.3 % (35.3-44.9); Hemoglobin 10.1 g/dL (11.5-15.4); Mean Corpuscular HGB Conc 32.3 g/dL (31.6-35.5); Mean Corpuscular Hemoglobin 29.9 pg (28.0-33.3); Mean Corpuscular Volume 92.6 fL (83.0-100.0); Mean Platelet Volume 9.4 fL (9.4-12.4); Platelet Count 421 K/mcL (140-400); Red Blood Count 3.38 M/mcL (3.82-4.97); Red Cell Distribution Width 14.3 % (11.5-14.5); White Blood Count 9.7 K/mcL (4.3-11.1)
[2019-02-20 09:36] LABS: BUN/Creatinine Ratio 23 (6-26); Blood Urea Nitrogen 18 mg/dL (6-20); Calcium 9.7 mg/dL (8.6-10.3); Carbon Dioxide 33 mEq/L (23-29); Chloride 98 mEq/L (98-107); Glucose 207 mg/dL (70-105); Osmolality,Calculated 282 (280-300); Potassium 3.5 mEq/L (3.5-5.1); Sodium 132 mEq/L (136-145); eGFR For African Americans > 60 (> 60); eGFR For Non-African Americans > 60 (> 60)
[2019-02-20 09:49] LABS: Basophils # 0.2 K/mcL (0.0-0.2); Eosinophils # 0.6 K/mcL (0.0-0.6); Lymphocytes # 2.9 K/mcL (0.6-4.6); Monocytes # 0.4 K/mcL (0.0-1.3); Neutrophils # 5.6 K/mcL (1.6-8.9)
[2019-02-21] MEDS: *HR* LORazepam 0.5 MG TABLET PO PRN ×3 (01:40→11:13)
[2019-02-21] MEDS: *HR* OxyCODONE/APAP 5/325 TABLET PO PRN ×3 (01:40→11:13)
[2019-02-21 04:35] LABS: Basophils # 0.1 K/mcL (0.0-0.2); Basophils % 0.9 %; Eosinophils # 0.5 K/mcL (0.0-0.6); Eosinophils % 5.4 %; Hemoglobin 9.6 g/dL (11.5-15.4); Immature Granulocytes % 0.9 % (0-4); Lymphocytes # 3.1 K/mcL (0.6-4.6); Lymphocytes % 35.9 %; Mean Corpuscular Hemoglobin 29.7 pg (28.0-33.3); Mean Corpuscular Volume 92.9 fL (83.0-100.0); Mean Platelet Volume 9.5 fL (9.4-12.4); Monocytes # 0.8 K/mcL (0.0-1.3); Monocytes % 9.7 %; Platelet Count 429 K/mcL (140-400); Red Blood Count 3.23 M/mcL (3.82-4.97); Red Cell Distribution Width 14.2 % (11.5-14.5); Segmented Neutrophils % 47.2 %; White Blood Count 8.5 K/mcL (4.3-11.1)
[2019-02-21 04:50] LABS: BUN/Creatinine Ratio 26 (6-26); Blood Urea Nitrogen 18 mg/dL (6-20); Calcium 9.3 mg/dL (8.6-10.3); Carbon Dioxide 28 mEq/L (23-29); Chloride 99 mEq/L (98-107); Glucose 167 mg/dL (70-105); Osmolality,Calculated 292 (280-300); Potassium 3.8 mEq/L (3.5-5.1); Sodium 138 mEq/L (136-145); eGFR For African Americans > 60 (> 60); eGFR For Non-African Americans > 60 (> 60)
[2019-02-21] MEDS: Levalbuterol Neb 1.25 MG/3 ML IH SCH ×2 (04:55→11:23)
[2019-02-21] MEDS: *HR* Heparin 5,000 UNIT/ML VIAL SQ SCH (05:31)
[2019-02-21] MEDS: *HR* Amiodarone 200 MG TABLET PO SCH (07:32)
[2019-02-21] MEDS: Chlorhexidine Rinse 15 ML MOUTHWASH MM SCH (07:32)
[2019-02-21] MEDS: Pantoprazole 40 MG VIAL IVP SCH (07:32)
[2019-02-21] MEDS: Aspirin Enteric Coated 81 MG Tablet PO SCH (07:32)
[2019-02-21] MEDS: amLODIPine 5 MG TABLET PO SCH (07:32)
[2019-02-21] MEDS: Insulin DETEMIR 100 UNIT/ML X5UNITS SQ SCH (07:33)
[2019-02-21] MEDS: Insulin LISPRO 300 UNITS/3 ML VIAL SQ SCH ×2 (07:33→11:15)
[2019-02-21] MEDS: Gabapentin 300 MG CAPSULE PO SCH (07:33)
--- NOTE | 2019-02-21 07:48 | Pulmonology Progress Note ---
<Mick Peters S - Last Filed: 02/21/19 09:37> Date of Encounter: 02/21/19 Time of Encounter: 07:48 Assessment and Plan (1) COPD (chronic obstructive pulmonary disease) Status: Acute Patient continues to have good respiratory effort, saturation is acceptable on room air Cough resolved Patient remains afebrile with stable white count and red blood cell count Patient has been compliant with incentive spirometry use * Patient to be discharged home today * Continue incentive spirometer at home * Further follow-up per CT surgery Qualifiers: COPD type: unspecified COPD Qualified Code(s): J44.9 - Chronic obstructive pulmonary disease, unspecified Subjective Principal diagnosis: S/P CABG Interval history: Mrs. Weiner is a 53 year old female status post CABG/maze procedure on 02/15 with past history of COPD, diabetes, hypertension, peripheral artery disease. She states she is feeling much better today, has improvement in the pain in her chest from her surgery, denies any concerning signs or symptoms. She states she is ready to go home and was excited that she has a "one-way ticket down 23." Denies difficulty breathing, nausea/vomiting, headache/lightheadedness, trouble swallowing or speaking, diarrhea/constipation/urinary trouble, new numbness/tingling/weakness anywhere. Objective PUL Vital signs: Last Vital Signs Temp 97.8 F 02/21/19 07:21 Pulse 89 02/21/19 03:30 Resp 16 02/21/19 04:56 BP 139/99 02/21/19 03:30 Pulse Ox 91 02/21/19 04:56 General appearance: no acute distress Eyes: nonicteric ENT: oropharynx moist Effort: normal Auscultation: left: wheezes (Faint inspiratory wheeze), right: clear Cardiovascular: regular rate and rhythm Gastrointestinal: soft, non-tender, non-distended Integumentary: normal Extremities: no cyanosis, no edema, no ischemia or petechiae Musculoskeletal: no deformities Gait: normal gait normal mental status, non-focal exam mood appropriate, affect normal Ventilator Settings Ventilator Settings: Ventilator Settings, Last 8 Hours Ventilator Tidal Volume 500 Setting Ventilator Respiratory Rate 13 Setting Results - Laboratory Findings CBC and BMP: 02/21/19 03:51 02/21/19 03:51 ABG ABG pH 7.36 pH Units (7.32-7.45) 02/17/19 08:19 ABG pCO2 55 mmHg (35-45) H 02/17/19 08:19 ABG pO2 55 mmHg (85-104) L 02/17/19 08:19 ABG O2 Saturation 86 % (95-98) L 02/17/19 08:19 PT/INR, D-dimer PT 11.6 Seconds (9.4-12.1) 02/16/19 03:54 Abnormal lab findings: Abnormal lab results WBC 11.4 K/mcL (4.3-11.1) H 02/18/19 06:35 RBC 3.23 M/mcL (3.82-4.97) L 02/21/19 03:51 Hgb 9.6 g/dL (11.5-15.4) L 02/21/19 03:51 Hct 30.0 % (35.3-44.9) L 02/21/19 03:51 RDW 14.7 % (11.5-14.5) H 02/18/19 06:35 Plt Count 429 K/mcL (140-400) H 02/21/19 03:51 MPV 9.3 fL (9.4-12.4) L 02/15/19 19:06 Neutrophils # 10.1 K/mcL (1.6-8.9) H 02/16/19 03:54 Platelet Estimate Slight increase (Normal) H 02/20/19 09:06 PT 12.8 Seconds (9.4-12.1) H 02/15/19 19:06 Heparin Anti-Xa, Unfract 0.28 IU/mL (0.30-0.70) L 02/14/19 19:55 ABG pH 7.30 pH Units (7.32-7.45) L 02/15/19 16:24 ABG pCO2 55 mmHg (35-45) H 02/17/19 08:19 ABG pO2 55 mmHg (85-104) L 02/17/19 08:19 ABG HCO3 31 mEq/L (21-27) H 02/17/19 08:19 ABG Total CO2 33 mEq/L (20-26) H 02/17/19 08:19 ABG O2 Saturation 86 % (95-98) L 02/17/19 08:19 ABG Base Excess 4 mEq/L (-2 to 3) H 02/17/19 08:19 ABG Hematocrit 22.0 % (35.3-44.9) L 02/15/19 17:53 ABG Chloride 96 mEq/L (98-107) L 02/15/19 17:22 Glucose 205 mg/dL (60-95) H 02/15/19 17:53 Sodium 132 mEq/L (136-145) L 02/20/19 09:06 Chloride 96 mEq/L (98-107) L 02/18/19 05:05 Carbon Dioxide 33 mEq/L (23-29) H 02/20/19 09:06 Glucose 167 mg/dL (70-105) H 02/21/19 03:51 POC Glucose 298 mg/dL (70-99) H 02/20/19 19:42 Hemoglobin A1c 10.4 % (-5.6) H 02/14/19 17:57 Troponin I 0.59 ng/mL (< 0.04) H* 02/12/19 22:43 Triglycerides 549 mg/dL (< 150) H 02/14/19 06:37 HDL Cholesterol 28 mg/dL (40-59) L 02/14/19 06:37 Cholesterol/HDL Ratio 6.6 (0-4.9) H 02/14/19 06:37 Arterial Blood Ionized Calcium 1.00 mmol/L (1.15-1.35) L 02/15/19 17:22 Crossmatch See Detail 02/14/19 17:57 - Clinical Findings Intake & Output: Intake & Output 02/20/19 02/20/19 02/21/19 15:59 23:59 07:59 Intake Total 720 / 1320 240 / 1320 Output Total 700 / 1900 850 / 1900 1800 / 1800 Balance 20 / -580 -610 / -580 -1800 / -1800 Weight 115.3 kg - VTE Documentation of Mechanical Device: Graduated compression elastic hosiery Consult Discharge Plan - Plan Instructions: Diabetes Mellitus Type 2 in Adults (DC), Peripheral Vascular Disorders (DC), Chronic Obstructive Pulmonary Disease (DC), Chronic Hypertension (DC), Anxiety (DC), Sternal Precautions (GEN) Additional Instructions: If you have questions that are not answered by these instructions, please call your nurse or doctor. * Do not drive for 1 month or until allowed by your surgeon. * If you smoke, STOP SMOKING. Smoking or tobacco use significantly increases your risk of heart disease because nicotine causes the arteries to narrow or constrict. It also causes fats to stick to the artery. Your chances of o ccluding your new bypasses or having a heart attack are greatly increased if you continue to smoke. For more information call the patient education line for smoking cessation 1-618-OCEX-NOW. * Continue to use your incentive Spirometry about 6 times each day (1 use = 5 to 10 breaths) for 1 month. This important to help prevent pneumonia. * Follow your Phase I Cardiac Rehab Activity Guide. * You may climb stairs, one step at a time, as you are able. * Do not lift more than 10 pounds (1/2 gallon of milk = 5 pounds), vacuum, sweep, shovel snow, rake leaves, or do anything that could pull on the chest for 2 months. * You may resume sexual activity when you feel ready. * Continue to wear NICCI hose during the day for about 1 month. Remove and wash daily in mild detergent. * Gently wash incision with soap and water daily. Rinse well and pat dry with a clean towel. Do not soak your incisions under water. Do not use any powders, lotions, creams or ointments on your incision. * Chest tube sites may drain fluid for 1-2 weeks and can be covered with dry gauze. They also may become reddened or inflamed as they heal and can be cleaned twice a day with hydrogen peroxide. * Take your pulse once a day. If it is less than 60 or greater than 110 beats per minute at rest, call your Cloud Consultant, * Take your temperature by mouth once a day for 2 weeks. Call your surgeon of it is above 101 degrees. * Call the surgeon if you notice drainage or redness at your incision lines. * Weigh yourself each day for 2 weeks. Call your doctor if you notice and increase in your weight of 3 pounds or more in a day or increasing shortness of breath. * If you experience chest pain, shortness of breath, dizziness or extreme tiredness, stop and rest. Please notify your doctor if you experience any of these symptoms. * If you experience any of these symptoms and they are not relieved with rest, please call 911. Phase I consult completed. Patient was educated on why Cardiac Rehabilitation is beneficial to his/her health. Participating in a cardiac rehabilitation can improve the following: strengthen your heart, improve ejection fraction, weight reduction, decrease cholesterol levels, lower blood pressure, lower blood sugar, improve stamina, and enhance self-image. If he/she has any questions, they were instructed to call [facility] at [phone]. Referrals: Neema Oropeza CNP [Primary Care Provider] - Prescriptions: Amiodarone [Cordarone] 200 mg PO DAILY #30 tablet Transmission Status: Received by [employer] [facility] 363 Atorvastatin [Lipitor] 40 mg PO HS #30 tablet Transmission Status: Received by [employer] [facility] 363 OxyCODONE/APAP 5/325 [Percocet 5/325 MG] 1 each PO Q4HR PRN 7 Days #20 tablet PRN Reason: Severe Pain Prescription Printed <Davi Chung - Last Filed: 02/21/19 20:09> Date of Encounter: 02/21/19 Objective PUL Vital signs: Last Vital Signs Temp 98.0 F 02/21/19 11:14 Pulse 98 02/21/19 08:00 Resp 16 02/21/19 11:24 BP 152/89 02/21/19 08:00 Pulse Ox 93 02/21/19 11:24 Results - Laboratory Findings CBC and BMP: 02/21/19 03:51 02/21/19 03:51 ABG ABG pH 7.36 pH Units (7.32-7.45) 02/17/19 08:19 ABG pCO2 55 mmHg (35-45) H 02/17/19 08:19 ABG pO2 55 mmHg (85-104) L 02/17/19 08:19 ABG O2 Saturation 86 % (95-98) L 02/17/19 08:19 PT/INR, D-dimer PT 11.6 Seconds (9.4-12.1) 02/16/19 03:54 Abnormal lab findings: Abnormal lab results WBC 11.4 K/mcL (4.3-11.1) H 02/18/19 06:35 RBC 3.23 M/mcL (3.82-4.97) L 02/21/19 03:51 Hgb 9.6 g/dL (11.5-15.4) L 02/21/19 03:51 Hct 30.0 % (35.3-44.9) L 02/21/19 03:51 RDW 14.7 % (11.5-14.5) H 02/18/19 06:35 Plt Count 429 K/mcL (140-400) H 02/21/19 03:51 MPV 9.3 fL (9.4-12.4) L 02/15/19 19:06 Neutrophils # 10.1 K/mcL (1.6-8.9) H 02/16/19 03:54 Platelet Estimate Slight increase (Normal) H 02/20/19 09:06 PT 12.8 Seconds (9.4-12.1) H 02/15/19 19:06 Heparin Anti-Xa, Unfract 0.28 IU/mL (0.30-0.70) L 02/14/19 19:55 ABG pH 7.30 pH Units (7.32-7.45) L 02/15/19 16:24 ABG pCO2 55 mmHg (35-45) H 02/17/19 08:19 ABG pO2 55 mmHg (85-104) L 02/17/19 08:19 ABG HCO3 31 mEq/L (21-27) H 02/17/19 08:19 ABG Total CO2 33 mEq/L (20-26) H 02/17/19 08:19 ABG O2 Saturation 86 % (95-98) L 02/17/19 08:19 ABG Base Excess 4 mEq/L (-2 to 3) H 02/17/19 08:19 ABG Hematocrit 22.0 % (35.3-44.9) L 02/15/19 17:53 ABG Chloride 96 mEq/L (98-107) L 02/15/19 17:22 Glucose 205 mg/dL (60-95) H 02/15/19 17:53 Sodium 132 mEq/L (136-145) L 02/20/19 09:06 Chloride 96 mEq/L (98-107) L 02/18/19 05:05 Carbon Dioxide 33 mEq/L (23-29) H 02/20/19 09:06 Glucose 167 mg/dL (70-105) H 02/21/19 03:51 POC Glucose 298 mg/dL (70-99) H 02/20/19 19:42 Hemoglobin A1c 10.4 % (-5.6) H 02/14/19 17:57 Troponin I 0.59 ng/mL (< 0.04) H* 02/12/19 22:43 Triglycerides 549 mg/dL (< 150) H 02/14/19 06:37 HDL Cholesterol 28 mg/dL (40-59) L 02/14/19 06:37 Cholesterol/HDL Ratio 6.6 (0-4.9) H 02/14/19 06:37 Arterial Blood Ionized Calcium 1.00 mmol/L (1.15-1.35) L 02/15/19 17:22 Crossmatch See Detail 02/14/19 17:57 - Clinical Findings Intake & Output: Intake & Output 02/21/19 02/21/19 02/21/19 07:59 15:59 23:59 Intake Total 300 / 300 Output Total 1800 / 2200 400 / 2200 Balance -1800 / -1900 -100 / -1900 Weight 115.3 kg - Attending Attestation I examined this patient and my medical decision-making was reviewed with the Resident Physician. I agree with the documented findings, disposition and treatment plan as described except to the extent set forth below. Patient seen and examined. Labs, radiology, chart personally reviewed. 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 Continue IS to prevent atelectasis and need to follow up as outpatient for possible PFT and O2 evaluation. Cardiovascular: stable and follow up with cardiothoracic. Dispo: discharge home Code: Full. Prognosis. good.
[2019-02-21 08:07] VITALS: BP 152/89
--- NOTE | 2019-02-21 09:01 | Cardiothoracic Progress Note ---
Date of Encounter: 02/21/19 Time of Encounter: 08:59 - Assessment and plan (1) COPD (chronic obstructive pulmonary disease) Current Visit: Yes Status: Acute We will discharge the patient to home today. We will arrange for a visiting nurse per the patient's request. Qualifiers: COPD type: unspecified COPD Qualified Code(s): J44.9 - Chronic obstructive pulmonary disease, unspecified - Subjective Interval history: The patient is ambulating and tolerating her diet. She is anxious to be discharged. Vital Signs, Last 4 Hours Temp Pulse Resp BP Pulse Ox 02/21/19 08:00 98 16 152/89 93 02/21/19 07:21 97.8 F Oxgyen Flow Rate Oxygen Flow Rate (LPM) 2 Clinical Data, last 8 Hours Output, Urine Amount 1,000 Output, Urine Amount 800 Weight 02/19/19 02/20/19 02/21/19 23:59 23:59 23:59 Weight 114.3 kg 115.3 kg Lungs are clear to percussion and auscultation. Heart is in a normal sinus rhythm. All incisions are healing well without signs of infection and the sternum is stable. - Labs 02/21/19 03:51 02/21/19 03:51 Lab Results, Last 24 hours 02/20/19 02/20/19 02/21/19 09:06 09:06 03:51 WBC 9.7 8.5 Hgb 10.1 L 9.6 L Hct 31.3 L 30.0 L Plt Count 421 H D 429 H Sodium 132 L Potassium 3.5 Chloride 98 Carbon Dioxide 33 H BUN 18 Creatinine 0.78 Glucose 207 H Calcium 9.7 02/21/19 03:51 WBC Hgb Hct Plt Count Sodium 138 Potassium 3.8 Chloride 99 Carbon Dioxide 28 BUN 18 Creatinine 0.70 Glucose 167 H Calcium 9.3 - VTE Documentation of Mechanical Device: Graduated compression elastic hosiery Consult Discharge Plan - Plan Referrals: Neema Oropeza CNP [Primary Care Provider] -
--- NOTE | 2019-02-21 09:10 | Discharge Summary ---
Date of Encounter: 02/21/19 Time of Encounter: 09:04 - Discharge Diagnosis (1) COPD (chronic obstructive pulmonary disease) Priority: Primary Status: Acute Qualifiers: COPD type: unspecified COPD Qualified Code(s): J44.9 - Chronic obstructive pulmonary disease, unspecified - Hospital Course Hospital course: Ms. Weiner is a 53 year old female The patient is a 53-year-old female with a history of diabetes and hypertension who presented with chest pain and an increased troponin. Cardiac catheterization revealed triple-vessel disease and she was referred for surgery. On 02/15/2019, Dr. Stein took the patient to the operating room for coronary artery bypass grafting 3, utilizing the left internal mammary artery. Postoperatively, she was seen by the pulmonary service for shortness of breath and hypoxia. This resolved and by the time of discharge she was on room air with O2 saturations in the 90s. She was placed on amiodarone for atrial fibri llation. She otherwise did well and was discharged on February 21. At that time, she was afebrile. Lungs were clear to percussion and auscultation. Heart was in a normal sinus rhythm. All incisions were healing well without signs of infection and the sternum was stable. Discharge medications are on the med rec and include narcotics for pain. I did check the [place] automated Rx reporting system. She was postoperative and was given a one-week supply. Appropriate precautions were given. She was to return to her regular diabetic diet. She was to avoid heavy lifting for a total of 3 months after surgery, but to walk as much as possible. She was to avoid driving for 1 month. She was to follow-up and see Dr. Stein in the offices in 4 weeks as directed. She was to follow-up with her primary care doctor and geriatric social work professor as directed. She was to call sooner for any difficulties. - Time Spent with Patient Total time spent providing and/or coordinating discharge services: - Discharge Medications Prescriptions: New Amiodarone [Cordarone] 200 mg PO DAILY #30 tablet Atorvastatin [Lipitor] 40 mg PO HS #30 tablet OxyCODONE/APAP 5/325 [Percocet 5/325 MG] 1 each PO Q4HR PRN 7 Days #20 tablet PRN Reason: Severe Pain Continued Prasugrel [Effient] 10 mg PO DAILY Albuterol Sulfate [Proventil Inhaler] 2 puff IH Q4HR PRN PRN Reason: Wheezing Amlodipine Besylate 10 mg PO DAILY Metoprolol [Lopressor] 50 mg PO BID Insulin ASPART [NovoLOG] 30 unit SQ TID Gabapentin [Neurontin] 600 mg PO TID Losartan Potassium [Cozaar] 50 mg PO DAILY Aspirin [Lo-Dose Aspirin EC] 81 mg PO DAILY Insulin LISPRO [Humalog Kwikpen U-100] 30 units SQ TID Albuterol Neb [AccuNeb] 1.25 mg IH Q4-6H PRN PRN Reason: Shortness Of Breath Metformin HCl 1,000 mg PO BID Home Medications: Albuterol Sulfate [Proventil Inhaler] 2 puff IH Q4HR PRN 01/14/17 [History] Amlodipine Besylate 10 mg PO DAILY 01/14/17 [History] Aspirin [Lo-Dose Aspirin EC] 81 mg PO DAILY 01/14/17 [History] Gabapentin [Neurontin] 600 mg PO TID 01/14/17 [History] Insulin ASPART [NovoLOG] 30 unit SQ TID 01/14/17 [History] Losartan Potassium [Cozaar] 50 mg PO DAILY 01/14/17 [History] Metoprolol [Lopressor] 50 mg PO BID 01/14/17 [History] Prasugrel [Effient] 10 mg PO DAILY 01/14/17 [History] Albuterol Neb [AccuNeb] 1.25 mg IH Q4-6H PRN 02/12/19 [History] Insulin LISPRO [Humalog Kwikpen U-100] 30 units SQ TID 02/12/19 [History] Metformin HCl 1,000 mg PO BID 02/12/19 [History] Amiodarone [Cordarone] 200 mg PO DAILY #30 tablet 02/21/19 [Rx] Atorvastatin [Lipitor] 40 mg PO HS #30 tablet 02/21/19 [Rx] OxyCODONE/APAP 5/325 [Percocet 5/325 MG] 1 each PO Q4HR PRN 7 Days #20 tablet 02/21/19 [Rx] Allergies/Adverse Reactions: Allergy/AdvReac Type Severity Reaction Status Date / Time Penicillins [PCN] AdvReac Intermediate Vomiting Verified 02/12/19 16:06 clopidogrel [From Plavix] AdvReac See Verified 02/12/19 16:06 Comments lisinopril AdvReac Cough Verified 02/12/19 16:06 quinapril [From Accupril] AdvReac Cough Verified 02/12/19 16:06 Date of admission: 02/14/19 14:03 Primary care physician: Neema Oropeza Consults: 02/12/19 11:04 Consult to Cardiology [CONS] Routine Comment: Consulting Provider: Cardiology [place] Reason for Consult: Chest pain Call Completed: Yes 02/12/19 16:47 Consult to Hooking Machine Operator [CONS] Routine Reason for SW Consult: Would like to set up POA paperwork. 02/14/19 08:29 Consult to Cardiac Rehabilitation-Phase1 [CONS] Routine Comment: Reason for Consult: NSTEMI Call Completed: No 02/14/19 15:18 Consult to Cardiothoracic Surgery [CONS] Routine Consulting Provider: Cardiothoracic Surgery [place] Reason for Consult: Multivessel disease Call Completed: Yes 02/15/19 18:29 Consult to Cardiac Rehabilitation-Phase1 [CONS] Routine Comment: Reason for Consult: Post open heart Call Completed: Yes 02/16/19 08:42 Consult to Pulmonology [CONS] Routine Consulting Provider: [facility] [place] Reason for Consult: Monitor Respiratory status Time Notified: 08:42 Call Completed: No 02/19/19 09:18 Consult for Pharmacy Education [CONS] Routine Reason for Consult: Post-Op Heart Call Completed: Yes Consult to Occupational Therapy [CONS] Routine Comment: Evaluate, develop and implement POC Reason for Consult: Post-Op Heart Does patient have active BEDREST order?: No Is patient medically & hemodynamically stable?: Yes Consult to Physical Therapy [CONS] Routine Comment: Evaluate, develop and implement POC Reason for Consult: Post open heart Does patient have active BEDREST order?: No Is patient medically & hemodynamically stable?: Yes Procedure(s) Performed: 02/15/2019. Coronary artery bypass grafting 3, utilizing the left internal mammary artery. Discharging clinician: Lonnie Capone Anticipated date of discharge: 02/21/19 Physical Examination Vital Signs, Last 4 Hours Temp Pulse Resp BP Pulse Ox 02/21/19 08:00 98 16 152/89 93 02/21/19 07:21 97.8 F - Patient Status Disposition: Home Health Service Functional capacity at discharge: independent ambulation Overall status at discharge: patient is progressing back to baseline - Discharge Instructions Follow Up With: Neema Oropeza, FEI [Primary Care Provider] - Open Heart Registry Aspirin Cont/Prescribed at DC: Yes Beta Cammie Cont/Prescribed at DC: Yes Statin Cont/Prescribed at DC: Yes CHRISTINA/ARB Cont/Prescribed at DC: Yes - VTE Documentation of Mechanical Device: Graduated compression elastic hosiery
--- NOTE | 2019-02-21 09:17 | Physician Discharge Referral ---
Home Health/Hosp Referral Info Transfer to: Home Health Provider in Charge Post Discharge: PCP - Diagnosis (1) COPD (chronic obstructive pulmonary disease) Priority: Primary Status: Acute - Respiratory Orders Smoking Cessation: Smoking cessation has been advised. For more information, call the [place] Tobacco Quit Line at 4-420-WRXJ-NOW. - Diet/Nutrition Diet/Nutrition Orders: No Concentrated Sweets - Activity Activity Orders: Up ad cruzito, Ambulate, Chair - Services Needed Following services are medically necessary services: Nursing, Home Health Aide, Physical Therapy, Occupational Therapy - Transfer Medications Prescriptions: Amiodarone [Cordarone] 200 mg PO DAILY #30 tablet Transmission Status: Received by [employer] 363 Atorvastatin [Lipitor] 40 mg PO HS #30 tablet Transmission Status: Received by [employer] [facility] OxyCODONE/APAP 5/325 [Percocet 5/325 MG] 1 each PO Q4HR PRN 7 Days #20 tablet PRN Reason: Severe Pain Prescription Printed Home Medications: Albuterol Sulfate [Proventil Inhaler] 2 puff IH Q4HR PRN 01/14/17 [History] Amlodipine Besylate 10 mg PO DAILY 01/14/17 [History] Aspirin [Lo-Dose Aspirin EC] 81 mg PO DAILY 01/14/17 [History] Gabapentin [Neurontin] 600 mg PO TID 01/14/17 [History] Insulin ASPART [NovoLOG] 30 unit SQ TID 01/14/17 [History] Losartan Potassium [Cozaar] 50 mg PO DAILY 01/14/17 [History] Metoprolol [Lopressor] 50 mg PO BID 01/14/17 [History] Prasugrel [Effient] 10 mg PO DAILY 01/14/17 [History] Albuterol Neb [AccuNeb] 1.25 mg IH Q4-6H PRN 02/12/19 [History] Insulin LISPRO [Humalog Kwikpen U-100] 30 units SQ TID 02/12/19 [History] Metformin HCl 1,000 mg PO BID 02/12/19 [History] Amiodarone [Cordarone] 200 mg PO DAILY #30 tablet 02/21/19 [Rx] Atorvastatin [Lipitor] 40 mg PO HS #30 tablet 02/21/19 [Rx] OxyCODONE/APAP 5/325 [Percocet 5/325 MG] 1 each PO Q4HR PRN 7 Days #20 tablet 02/21/19 [Rx] Allergies/Adverse Reactions: Allergy/AdvReac Type Severity Reaction Status Date / Time Penicillins [PCN] AdvReac Intermediate Vomiting Verified 02/12/19 16:06 clopidogrel [From Plavix] AdvReac See Verified 02/12/19 16:06 Comments lisinopril AdvReac Cough Verified 02/12/19 16:06 quinapril [From Accupril] AdvReac Cough Verified 02/12/19 16:06 Certification: Further, I certify that my clinical findings support that this patient is homebound (i.e. absences from home require considerable and taxing effort and are for medical reasons or [facility] services or infrequently or short duration when for other reasons) because: Homebound Reason: Post-surgery restriction and or conditions limit ability to leave home Attestation: My signature below is to certify that this patient is under my care and that I, or nurse practitioner, or a physician's bankruptcy assistant working with me, has a [id number] encounter with this patient.
== END 2019-02-21 13:10 | disposition home health service (06) | DRG 234 ==
LOC: 2ANU → SUATTDRO 10:27 → ICNU 02-15 13:32 → 2ANU 02-20 15:46
PROVIDERS: ADMIT Family Medicine; ATTEND Internal Medicine

== ENCOUNTER 2019-02-28 17:46 | Observation (INO) ==
[2019-02-28] MEDS ORDERED: Furosemide 40 MG/4 ML VIAL IVP ONE (19:09)
[2019-02-28 20:23] LABS: Basophils # 0.1 K/mcL (0.0-0.2); Basophils % 0.6 %; Eosinophils # 0.7 K/mcL (0.0-0.6); Eosinophils % 4.5 %; Hematocrit 28.6 % (35.3-44.9); Hemoglobin 9.2 g/dL (11.5-15.4); Immature Granulocytes % 0.5 % (0-4); Lymphocytes # 3.5 K/mcL (0.6-4.6); Lymphocytes % 22.8 %; Mean Corpuscular HGB Conc 32.2 g/dL (31.6-35.5); Mean Corpuscular Hemoglobin 29.8 pg (28.0-33.3); Mean Corpuscular Volume 92.6 fL (83.0-100.0); Mean Platelet Volume 9.2 fL (9.4-12.4); Monocytes # 1.1 K/mcL (0.0-1.3); Monocytes % 7.2 %; Platelet Count 651 K/mcL (140-400); Red Blood Count 3.09 M/mcL (3.82-4.97); Red Cell Distribution Width 14.6 % (11.5-14.5); Segmented Neutrophils % 64.4 %; White Blood Count 15.5 K/mcL (4.3-11.1)
[2019-02-28 20:40] LABS: Alanine Aminotransferase 11 Units/L (7-52); Albumin 3.6 g/dL (3.5-5.7); Albumin/Globulin Ratio 1.3 (1.1-2.2); Alkaline Phosphatase 87 Units/L (34-104); Aspartate Amino Transferase 7 Units/L (13-39); BUN/Creatinine Ratio 20 (6-26); Bilirubin,Indirect 0.2 mg/dL (0.0-1.2); Bilirubin,Total 0.2 mg/dL (0.3-1.0); Blood Urea Nitrogen 15 mg/dL (6-20); Calcium 9.4 mg/dL (8.6-10.3); Carbon Dioxide 23 mEq/L (23-29); Chloride 107 mEq/L (98-107); Globulin 2.8 g/dL (2.4-3.5); Glucose 124 mg/dL (70-105); Osmolality,Calculated 286 (280-300); Potassium 3.6 mEq/L (3.5-5.1); Sodium 137 mEq/L (136-145); Total Protein 6.4 g/dL (6.4-8.9); eGFR For African Americans > 60 (> 60); eGFR For Non-African Americans > 60 (> 60)
[2019-02-28 20:48] LABS: Troponin I 0.09 ng/mL (< 0.04)
[2019-02-28] MEDS ORDERED: Aspirin 81 MG TAB.CHEW PO STA (21:51)
[2019-03-01] MEDS ORDERED: Naloxone 0.4 MG/ML INJ IVP PRN (00:40)
[2019-03-01] MEDS ORDERED: Dextrose Gel 15 GM/37.5 ML TUBE PO PRN ×2 (01:12)
[2019-03-01] MEDS ORDERED: *HR* Dextrose 50 % in Water (Syg) 50 ML SYRINGE IVP PRN (01:12)
[2019-03-01] MEDS ORDERED: D5% in Water 1,000 ML IVC PRN (01:12)
[2019-03-01 02:14] LABS: Hematocrit 31.5 % (35.3-44.9); Mean Corpuscular HGB Conc 31.7 g/dL (31.6-35.5); Mean Corpuscular Hemoglobin 29.2 pg (28.0-33.3); Mean Corpuscular Volume 92.1 fL (83.0-100.0); Mean Platelet Volume 9.1 fL (9.4-12.4); Platelet Count 636 K/mcL (140-400); Red Blood Count 3.42 M/mcL (3.82-4.97); Red Cell Distribution Width 14.7 % (11.5-14.5); White Blood Count 13.5 K/mcL (4.3-11.1)
[2019-03-01 02:30] LABS: BUN/Creatinine Ratio 17 (6-26); Blood Urea Nitrogen 13 mg/dL (6-20); Calcium 9.4 mg/dL (8.6-10.3); Carbon Dioxide 24 mEq/L (23-29); Chloride 104 mEq/L (98-107); Glucose 191 mg/dL (70-105); Osmolality,Calculated 289 (280-300); Potassium 3.7 mEq/L (3.5-5.1); Sodium 137 mEq/L (136-145); eGFR For African Americans > 60 (> 60); eGFR For Non-African Americans > 60 (> 60)
[2019-03-01] MEDS ORDERED: *HR* Heparin 5,000 UNIT/ML VIAL SQ SCH (06:00)
[2019-03-01] MEDS: *HR* OxyCODONE/APAP 5/325 TABLET PO PRN ×3 (06:10→21:05)
[2019-03-01] MEDS: Insulin LISPRO 300 UNITS/3 ML VIAL SQ SCH ×3 (10:07→16:31)
[2019-03-01] MEDS: amLODIPine 5 MG TABLET PO SCH (10:08)
[2019-03-01] MEDS: *HR* Amiodarone 200 MG TABLET PO SCH (10:08)
[2019-03-01] MEDS: Aspirin Enteric Coated 81 MG Tablet PO SCH (10:08)
[2019-03-01] MEDS: Gabapentin 300 MG CAPSULE PO SCH ×3 (10:08→21:05)
[2019-03-01] MEDS: Furosemide 20 MG/2 ML VIAL IVP SCH (10:08)
[2019-03-01] MEDS: Ipratropium/Albuterol Neb 3 ML IH SCH ×3 (11:14→21:21)
[2019-03-01] MEDS: Isosorbide MONOnitrate (24 HR) 30 MG TAB.ER.24H PO SCH (16:30)
[2019-03-01 18:41] LABS: Bilirubin,Urine Negative (Negative); Blood,Urine Negative (Negative); Clarity,Urine Clear (Clear); Color,Urine Yellow (Yellow); Glucose,Urine (UA) 100 mg/dL (Normal); Ketones,Urine Negative (Negative); Leukocyte Esterase,Urine Negative (Negative); Nitrite,Urine Negative (Negative); Protein,Urine Negative (Neg-Trace); Specific Gravity,Urine 1.021 (1.010-1.025); Urobilinogen,Urine Normal (Normal)
[2019-03-01] MEDS ORDERED: Insulin DETEMIR 100 UNIT/ML X5UNITS SQ SCH (21:00)
[2019-03-01] MEDS ORDERED: Insulin LISPRO 300 UNITS/3 ML VIAL SQ SCH (21:00)
[2019-03-01] MEDS: Apixaban 5 MG TABLET PO SCH (21:03)
[2019-03-02] MEDS: *HR* OxyCODONE/APAP 5/325 TABLET PO PRN (03:11)
[2019-03-02] MEDS: Ipratropium/Albuterol Neb 3 ML IH SCH ×2 (03:18→09:28)
[2019-03-02] MEDS ORDERED: *HR* LORazepam 0.5 MG TABLET PO PRN (03:21)
[2019-03-02 05:12] LABS: Hematocrit 28.3 % (35.3-44.9); Hemoglobin 8.9 g/dL (11.5-15.4); Mean Corpuscular HGB Conc 31.4 g/dL (31.6-35.5); Mean Corpuscular Hemoglobin 29.8 pg (28.0-33.3); Mean Corpuscular Volume 94.6 fL (83.0-100.0); Mean Platelet Volume 9.2 fL (9.4-12.4); Platelet Count 640 K/mcL (140-400); Red Blood Count 2.99 M/mcL (3.82-4.97); Red Cell Distribution Width 14.5 % (11.5-14.5); White Blood Count 10.6 K/mcL (4.3-11.1)
[2019-03-02 05:28] LABS: BUN/Creatinine Ratio 21 (6-26); Blood Urea Nitrogen 18 mg/dL (6-20); Calcium 8.9 mg/dL (8.6-10.3); Carbon Dioxide 25 mEq/L (23-29); Chloride 101 mEq/L (98-107); Glucose 234 mg/dL (70-105); Osmolality,Calculated 291 (280-300); Potassium 3.7 mEq/L (3.5-5.1); Sodium 136 mEq/L (136-145); eGFR For African Americans > 60 (> 60); eGFR For Non-African Americans > 60 (> 60)
[2019-03-02] MEDS: Insulin LISPRO 300 UNITS/3 ML VIAL SQ SCH ×2 (09:04→12:08)
[2019-03-02] MEDS: Apixaban 5 MG TABLET PO SCH (09:05)
[2019-03-02] MEDS: amLODIPine 5 MG TABLET PO SCH (09:05)
[2019-03-02] MEDS: *HR* Amiodarone 200 MG TABLET PO SCH (09:05)
[2019-03-02] MEDS: Isosorbide MONOnitrate (24 HR) 30 MG TAB.ER.24H PO SCH (09:05)
[2019-03-02] MEDS: Gabapentin 300 MG CAPSULE PO SCH (09:05)
[2019-03-02] MEDS: Aspirin Enteric Coated 81 MG Tablet PO SCH (09:05)
[2019-03-02] MEDS: Furosemide 20 MG/2 ML VIAL IVP SCH (09:06)
[2019-03-02 11:20] VITALS: BP 103/67
== END 2019-03-02 13:10 | disposition home or self-care (01) ==
LOC: EMEROOARM 17:46 → 2ANU 17:46 → SUATTDRO 22:28 → 2ANU 22:57
PROVIDERS: ADMIT Internal Medicine; ATTEND Family Medicine

== ENCOUNTER 2020-10-11 06:10 | Inpatient (IN) ==
[~2020-10-11 06:10] MED LIST: Vancomycin 1,000 MG, Sodium Chloride IRRigation 1,000 ML IR ONE
[2020-10-11] MEDS ORDERED: Vancomycin 1,750 MG/517.5 ML IV.SOLN IVPB ONE ×2 (06:38→20:30)
[2020-10-11] MEDS ORDERED: Ringers Solution, Lactated 1,000 ML IVC SCH (06:45)
[2020-10-11] MEDS ORDERED: *HR* Midazolam HCl 2 MG/2 ML VIAL ONE (06:55)
[2020-10-11] MEDS ORDERED: *HR* FentaNYL (PF) 100 MCG/2 ML VIAL ONE (06:55)
[2020-10-11] MEDS ORDERED: *HR* Propofol 200 MG/20 ML VIAL IVP ONE ×2 (06:55→09:36)
[2020-10-11] MEDS ORDERED: *HR* Succinylcholine 200 MG/10 ML VIAL IVP ONE (06:57)
[2020-10-11] MEDS ORDERED: Heparin 1,000 UNITS/500 mL 0 ML ONE (06:57)
[2020-10-11] MEDS ORDERED: *HR* Rocuronium Bromide 50 MG/5 ML VIAL ONE ×2 (06:57→09:29)
[2020-10-11] MEDS ORDERED: Lidocaine -MPF 2% 2 ML VIAL ONE ×2 (06:57→06:59)
[2020-10-11] MEDS ORDERED: Ondansetron 4 MG/2 ML VIAL ONE (06:57)
[2020-10-11] MEDS ORDERED: Ondansetron 4 MG/2 ML VIAL IVP PRN ×2 (07:03→15:23)
[2020-10-11] MEDS ORDERED: Albuterol 2.5 MG/3 ML NEBULIZER IH PRN (07:03)
[2020-10-11] MEDS ORDERED: *HR* OxyCODONE Immed Rel 5 MG TABLET PO PRN ×2 (07:03→15:23)
[2020-10-11] MEDS ORDERED: *HR* HYDROmorphone PF 0.5 MG/0.5 ML SYRINGE IVP PRN (07:03)
[2020-10-11] MEDS ORDERED: Acetaminophen IV 1,000 MG/100 ML BAG IVPB ONE (07:03)
[2020-10-11] MEDS ORDERED: Famotidine 20 MG/2 ML VIAL IVP ONE (07:03)
[2020-10-11] MEDS ORDERED: Protamine Sulfate 50 MG/5 ML VIAL IVP ONE (07:17)
[2020-10-11] MEDS ORDERED: Heparin 1,000 UNITS/500 mL 1,500 ML ONE (07:18)
[2020-10-11] MEDS ORDERED: CeFAZolin Syr 2,000MG/20 ML 2,000 MG/20 ML SYRINGE IVPB ONE (07:21)
[2020-10-11] MEDS ORDERED: EPHEDrine 50 MG/ML VIAL ONE (08:29)
[2020-10-11] MEDS ORDERED: Vancomycin 1,000 MG VIAL ONE (09:37)
[2020-10-11] MEDS ORDERED: *HR* HYDROMORPHONE 2 MG/ML VIAL ONE (09:37)
[2020-10-11] MEDS ORDERED: Sugammadex Sodium 200 MG/2 ML VIAL IV ONE (12:56)
[2020-10-11] MEDS ORDERED: *HR* Labetalol 20 MG/4 ML SYRINGE IVP PRN (15:23)
[2020-10-11] MEDS ORDERED: Dextrose Gel 15 GM/37.5 ML TUBE PO PRN ×2 (15:23)
[2020-10-11] MEDS ORDERED: Acetaminophen 325 MG TABLET PO PRN (15:23)
[2020-10-11] MEDS ORDERED: *HR* Dextrose 50 % in Water (Vial) 50 ML VIAL IVP PRN (15:23)
[2020-10-11] MEDS ORDERED: Naloxone 0.4 MG/ML INJ IVP PRN (15:23)
[2020-10-11] MEDS ORDERED: D5% in Water 1,000 ML IVC PRN (15:23)
[2020-10-11] MEDS ORDERED: 0.9 % Sodium Chloride 1,000 ML IVC SCH (15:30)
[2020-10-11] MEDS: *HR* Metoprolol 5 MG/5 ML VIAL IVP SCH ×2 (16:45→23:48)
[2020-10-11] MEDS: Insulin LISPRO 300 UNITS/3 ML VIAL SUBQ SCH (16:51)
[2020-10-11] MEDS: CeFAZolin 2 GM/120 ML BAG IVPB SCH ×2 (17:30→23:48)
[2020-10-11] MEDS: *HR* HYDROcodone/Acet 5/325 mg TABLET PO PRN ×2 (17:35→23:48)
[2020-10-11] MEDS: Gabapentin 300 MG CAPSULE PO SCH (20:59)
[2020-10-11] MEDS ORDERED: Insulin LISPRO 300 UNITS/3 ML VIAL SUBQ SCH (21:00)
[2020-10-11] MEDS: *HR* LORazepam 2 MG/ML VIAL IVP ONE (22:47)
[2020-10-12] MEDS: *HR* LORazepam 2 MG/ML VIAL IVP ONE (03:35)
[2020-10-12 04:47] LABS: Basophils # 0.1 K/mcL (0.0-0.2); Basophils % 0.4 %; Eosinophils # 0.1 K/mcL (0.0-0.6); Eosinophils % 0.5 %; Hematocrit 32.7 % (35.3-44.9); Hemoglobin 10.6 g/dL (11.5-15.4); Immature Granulocytes % 0.9 % (0-4); Lymphocytes # 1.9 K/mcL (0.6-4.6); Lymphocytes % 15.4 %; Mean Corpuscular HGB Conc 32.4 g/dL (31.6-35.5); Mean Corpuscular Hemoglobin 30.7 pg (28.0-33.3); Mean Corpuscular Volume 94.8 fL (83.0-100.0); Mean Platelet Volume 10.5 fL (9.4-12.4); Monocytes # 1.2 K/mcL (0.0-1.3); Monocytes % 9.5 %; Neutrophils # 9.2 K/mcL (1.6-8.9); Platelet Count 296 K/mcL (140-400); Red Blood Count 3.45 M/mcL (3.82-4.97); Red Cell Distribution Width 14.8 % (11.5-14.5); Segmented Neutrophils % 73.3 %; White Blood Count 12.5 K/mcL (4.3-11.1)
[2020-10-12 05:05] LABS: BUN/Creatinine Ratio 19 (6-26); Blood Urea Nitrogen 16 mg/dL (6-20); Calcium 8.2 mg/dL (8.6-10.3); Carbon Dioxide 24 mEq/L (23-29); Chloride 104 mEq/L (98-107); Glucose 195 mg/dL (70-105); Osmolality,Calculated 289 (280-300); Potassium 4.3 mEq/L (3.5-5.1); Sodium 136 mEq/L (136-145); eGFR For African Americans > 60 (> 60); eGFR For Non-African Americans > 60 (> 60)
[2020-10-12] MEDS ORDERED: *HR* Heparin 5,000 UNIT/ML VIAL SQ SCH ×2 (06:00)
[2020-10-12] MEDS: *HR* Metoprolol 5 MG/5 ML VIAL IVP SCH (06:06)
[2020-10-12] MEDS: Gabapentin 300 MG CAPSULE PO SCH ×2 (07:54→11:01)
[2020-10-12] MEDS: Insulin LISPRO 300 UNITS/3 ML VIAL SUBQ SCH ×2 (07:59→11:25)
[2020-10-12] MEDS ORDERED: *HR* Amiodarone 200 MG TABLET PO SCH (09:00)
[2020-10-12] MEDS ORDERED: Aspirin Enteric Coated 81 MG Tablet PO SCH (09:00)
[2020-10-12] MEDS: *HR* HYDROcodone/Acet 5/325 mg TABLET PO PRN (10:54)
[2020-10-12 11:18] VITALS: BP 119/65
== END 2020-10-12 15:50 | disposition home or self-care (01) | DRG 254 ==
LOC: SAMDAY 06:10 → 2NNU 14:54
PROVIDERS: ADMIT Surgery; ATTEND Surgery